=== PATIENT | female | born 1985 | race Caucasian/White ===

== ENCOUNTER 2018-05-15 01:07 | Outpatient (CLI) | payer MEDICARE, SELFPAY ==
[2018-05-15] MEDS: Gadoterate meglumine 20 ML VIAL 12 ML IVP (10:39)
--- NOTE | 2018-05-15 10:52 | DI.MRI_ITS ---
SYMPTOM/DIAGNOSIS: F/U MENINGIOMA, D32.9 BRAIN MRI: Pre and post contrast MRI of the brain was performed. Comparison examination is 11/25/17. There are again seen numerous extra-axial homogeneously enhancing masses intracranially, most suggestive of a combination of meningiomas and schwannoma/neurofibromas. There is again seen a lobulated mass involving the right skull base extending into the right retro-orbital soft tissues, the cavernous sinus, the right sphenoid sinus and the right cerebellar pontine angle. There is extension into the right middle cranial fossa. Using similar measuring techniques, the mass measures 7.6 cm. AP by 5.0 cm. transverse. This compares with 7.4 cm. AP by 5.0 cm. transverse. The cerebellar pontine component currently measures 2.9 cm. by 1.8 cm. This compares with 2.8 cm. by 1.8 cm. on the prior examination. The intra-orbital component of the mass measures 2.8 cm. by 1.8 cm. Using similar techniques, compares with 2.8 cm. by 1.2 cm. There is persistent mass effect on the optic nerve displacing the nerve medially. There is again seen encapsulation of the distal right internal carotid artery and the right middle cerebral artery. The mass involves the sella and suprasellar region. Overall there might be slight increase in size of the lesion compared to the prior examination. There is extension inferiorly with possible involvement of the right pterygoid muscle. The extra-axial mass centered on the anterior falx is again noted and shows slight increase in size measuring 3.0 cm. AP by 2.6 cm. transverse compared with 3.0 cm. by 2.3 cm. on the prior examination using similar techniques. There is mass effect on the surrounding frontal lobes. There is a lobulated enhancing soft tissue extra-axial mass again seen associated with the posterior falx. The mass now measures 5.3 cm. transverse by 2.7 cm. AP. Compared to the prior examination and using similar techniques, previously the mass measured 5.1 cm. by 2.4 cm. There is again seen diffuse meningeal enhancement with several enhancing nodules present. The nodule measured along the left temporal lobe is unchanged in size measuring .9 cm. The 1.4 cm. hyperintense lesion seen on the T 1 weighted images is unchanged in size. The enhancing masses in the internal auditory canals are stable in size compared to the prior examination. No new enhancing lesions are appreciated. The diffusion weighted images show no evidence of an acute infarct. There are again seen areas of T 2 hyperintensity in the white matter on the FLAIR and T 2 weighted images which appear stable. The ventricles are intact. There is unchanged mild leftward deviation of the midline. IMPRESSION: Multiple enhancing extra-axial masses which appear stable to slightly increased in size as described above.
== END 2018-05-15 01:27 ==
PROVIDERS: PCP Nurse Practitioner; Visit Provider Psychiatry & Neurology Neurocritical Care
DX: D32.9 Benign neoplasm of meninges, unspecified (principal)
CPT/HCPCS: 70553

== ENCOUNTER 2018-08-03 12:27 | Inpatient (IN) | payer MEDICARE, MEDICAID, SELFPAY ==
--- NOTE | 2018-08-03 10:34 | CM.SWINGPC ---
Swingbed Plan of Care Plan of care: SWING BED PROGRAM ACTIVITIES/DISCHARGE PLAN OF CARE ACTIVITIES PLAN Date: 08/03/18 Identified Need: Ongoing strengthening and continued supportive recovery. Intervention/Plan: [id number] with RN/PT/OT to continue to assess and support progress. Initials: [facility] DISCHARGE PLAN Date: 08/03/18 Identified Need: Return to community after prolonged hospitalization Intervention/Plan: Coordination of service supports, patient education, supported transition of care. Initials: JAMEL
--- NOTE | 2018-08-03 10:34 | CM.SBPSYCH ---
- If Service Date Differs Date of service: 08/03/18 Time of Service: 10:49 SB Psychosocial/Act.Assessment - Hospital Admission Admission Date: 08/03/18 [place] From[place] [facility] [place] Diagnosis:: SWB1 PT/OT for continued recovery s/p craniotomy at [facility] 07/20/18 - Swing Bed Admission Swing Bed Admit Date:: 08/03/18 Swing Bed Level of Care: Level 1/SNF - Social Supports PREVIOUS FUNCTIONAL STATUS/SOCIAL/FAMILY SUPPORTS:: Katherine resides at [facility] in [place], [place]. Her primary support is her mother, Margie Barnett. Katherine is and has a complex medical history requiring multiple surgical interventions. At baseline she is somewhat independent with support services and handicap apartment. - Prior to Admission Living Arrangements/Environment Prior to Admission:: [facility], senior housing handicap apartments, [facility] support, meal site - Education Highest Grade Completed:: Associates; [employer] Where did you attend School:: [employer]. 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 Behavior:: Pleasant, quiet, calm, soft spoken, friendly. - Medical History PAST MEDICAL HISTORY/PAST SURGICAL HISTORY:: Ms. 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 Her other history includes GERD, Hypothyroidism, Asthma, as well as noted Seizure Disorder (in setting of intracranial masses). 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 Her post-op course was complicated by a left Facial Droop, dysarthria, and LUE weakness, along with an inability to swallow. General Health:: Fair Past Psychiatric Treatment:: N/A - Admission Data Reason for Swing Bed Admission:: PT/OT for continued recovery s/p craniotomy at [facility] 07/20/18 Discharge Plan:: Home with resumption of services, possible new VNA orders dependent on ongoing evaluation and progress. Anticipate short term stay 7-13 days. Assessment: Appropriate for S/T rehab [facility] admission. Improvement Spec: Danae Lazcano Date Assessment was completed:: 08/03/18
--- NOTE | 2018-08-03 12:03 | W.PM.HP.N ---
Date of service: 08/03/18 Time of Service: 12:10 Assessment and Plan (1) Meningioma, recurrent of brain: Current visit: No Status: Chronic History of recurrent Meningioma of the brain, s/p prior resection in 2015. 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 Ms. Baugh developed new onset left facial droop, dysarthria, LUE weakness, and inability to swallow post-op, all reportedly improved and resolved with Decadron. Plan will be for completion of a steroid course with 2 additional days of Decadron. Also on Seizure prophylaxis with Keppra - per discussion with [facility], the patient is to remain on this at minimum until her follow-up with them. Patient also has note of prior seizure disorder in setting of prior intracranial mass, and reports being on Antiepileptics in the past as well. Being admitted to Swing Bed 1 for skilled rehab, with PT/OT consults, with expectations for discharge home with services over the course of the next week. (2) History of sarcoma: Current visit: No Status: Chronic History of childhood CSpine Sarcoma (C6-7) resulting in Quadriparesis. Patient is s/p surgical resection in 2003, Chemo/XRT, with residual Right hand weakness. Continue PT/OT as above. (3) Quadriparesis (muscle weakness): Current visit: No Status: Chronic (4) Seizure disorder: Current visit: No Status: Chronic On Keppra as above. (5) Hypothyroidism: Current visit: No Status: Chronic Continue replacement therapy. Consider repeat TSH soon. (6) GERD (gastroesophageal reflux disease): Current visit: No Status: Chronic Curently on famotidine. (7) DVT prophylaxis: Current visit: No Status: Acute SCD's, TEDs. History of Present Illness Chief Complaint: s/p Craniotomy Narrative: 33 year old woman with a prior history of recurrent Meningiomas of the brain, being admitted directly to Swing Bed as transfer [place] [facility] for the purposes of continued Rehab and Residential Needs. Ms. 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 Her other history includes GERD, Hypothyroidism, Asthma, as well as noted Seizure Disorder (in setting of intracranial masses). 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 Her post-op course was complicated by a left Facial Droop, dysarthria, and LUE weakness, along with an inability to swallow. These symptoms reportedly resolved over the course of the next week with patient receiving steroid therapy in the form of Decadron. She is noted to have a chronic and unchanged right eye Ptosis and RUE weakness. She is a resident of [facility] in [place], and is being transferred directly to Swing Bed at [facility] for continuation of PT and OT services. Current thinking is that she may return home with Home Health Services following this short rehab stay. Review of Systems Review of Systems All systems reviewed & are unremarkable except as noted in HPI and below PFSH Medical History Meningioma, recurrent of brain (Chronic) Neurofibromatosis II (Chronic) History of sarcoma (Chronic) Asthma (Chronic) Quadriparesis (muscle weakness) (Chronic) Seizure disorder (Chronic) Hypothyroidism (Chronic) GERD (gastroesophageal reflux disease) (Chronic) Surgical History S/P craniotomy (Chronic) Meds Home Medications Medication Instructions Recorded Confirmed Type acetaminophen 650 mg PO Q4H PRN PRN 08/03/18 08/03/18 History dexamethasone 1 mg PO DAILY 08/03/18 08/03/18 History famotidine 20 mg PO DAILY 08/03/18 08/03/18 History levetiracetam 500 mg PO BID 08/03/18 08/03/18 History levothyroxine 88 mcg PO DAILY 08/03/18 08/03/18 History melatonin 6 mg PO HS 08/03/18 08/03/18 History bmfqveuycuas-emj-acsy-FA-vit K 2 tab PO DAILY 08/03/18 08/03/18 History [Multi-Day Plus Minerals] sennosides-docusate sodium [Senna 2 tab PO BID 08/03/18 08/03/18 History Laxative-Stool Softener] sertraline 50 mg PO DAILY 08/03/18 08/03/18 History Allergies Allergy/AdvReac Type Severity Reaction Status Date / Time tetanus toxoid, adsorbed Allergy Severe Swelling/Ed Unverified 08/03/18 13:50 [place] morphine Allergy Mild Skin Rash Unverified 08/03/18 13:50 vecuronium Allergy Mild Skin Rash Unverified 08/03/18 13:50 acetaminophen [From Percocet] AdvReac Mild Other (See Unverified 08/03/18 13:50 Comment) adhesive tape AdvReac Mild Unverified 08/03/18 13:50 oxycodone [From Percocet] AdvReac Mild Other (See Unverified 08/03/18 13:50 Comment) Exam Narrative Exam Narrative: General: Patient appears comfortable, AAOX3, NAD HEENT: Right eyelid closed. Skin: Surgical site at craniotomy on right appears to be healing, without overlying erythema or cellulitic changes Neck: Supple CV: Regular, nontachycardic, S1S2, No rubs, murmurs, or gallops. Pulmonary: Clear to auscultation bilaterally, no crackles, wheezing, or rhonchi Abdomen: + Bowel Sounds, soft, nontender, nondistended Vascular: No lower extremity edema Neurologic: Appearance of right eye ptosis. Noted RUE weakness. Psych: Normal mood and affect. Results Labs : 08/03/18 12:29 08/03/18 12:29
--- NOTE | 2018-08-03 12:18 | HPE_ITS ---
Date of service: 08/03/18 Time of Service: 12:10 Assessment and Plan (1) Meningioma, recurrent of brain: Current visit: No Status: Chronic History of recurrent Meningioma of the brain, s/p prior resection in 2015. 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 Ms. Baugh developed new onset left facial droop, dysarthria, LUE weakness, and inability to swallow post-op, all reportedly improved and resolved with Decadron. Plan will be for completion of a steroid course with 2 additional days of Decadron. Also on Seizure prophylaxis with Keppra - per discussion with [facility], the patient is to remain on this at minimum until her follow-up with them. Patient also has note of prior seizure disorder in setting of prior intracranial mass, and reports being on Antiepileptics in the past as well. Being admitted to Swing Bed 1 for skilled rehab, with PT/OT consults, with expectations for discharge home with services over the course of the next week. (2) History of sarcoma: Current visit: No Status: Chronic History of childhood CSpine Sarcoma (C6-7) resulting in Quadriparesis. Patient is s/p surgical resection in 2003, Chemo/XRT, with residual Right hand weakness. Continue PT/OT as above. (3) Quadriparesis (muscle weakness): Current visit: No Status: Chronic (4) Seizure disorder: Current visit: No Status: Chronic On Keppra as above. (5) Hypothyroidism: Current visit: No Status: Chronic Continue replacement therapy. Consider repeat TSH soon. (6) GERD (gastroesophageal reflux disease): Current visit: No Status: Chronic Curently on famotidine. (7) DVT prophylaxis: Current visit: No Status: Acute SCD's, TEDs. History of Present Illness Chief Complaint: s/p Craniotomy Narrative: 33 year old woman with a prior history of recurrent Meningiomas of the brain, being admitted directly to Swing Bed as [place] [facility] [place] the purposes of continued Rehab and Skilled Nu rsing Needs. Ms. 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 Her other history incl udes GERD, Hypothyroidism, Asthma, as well as noted Seizure Disorder (in setting of intracranial masses). 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 Her post-op course was complicated by a left Facial Droop, dysarthria, and LUE weakness, along with an inability to swallow. These symptoms reportedly resolved over the course of the next week with patient receiving steroid therapy in the form of Decadron. She is noted to have a chronic and unchanged right eye Ptosis and RUE weakness. She is a resident of [facility] in [place], and is being transferred directly to [facility] Bed at [facility] for continuation of PT and OT services. Current thinking is that she may return home with Home Health Services following this short rehab stay. Review of Systems Review of Systems All systems reviewed & are unremarkable except as noted in HPI and below PFSH Medical History Meningioma, recurrent of brain (Chronic) Neurofibromatosis II (Chronic) History of sarcoma (Chronic) Asthma (Chronic) Quadriparesis (muscle weakness) (Chronic) Seizure disorder (Chronic) Hypothyroidism (Chronic) GERD (gastroesophageal reflux disease) (Chronic) Surgical History S/P craniotomy (Chronic) Meds Home Medications Medication Instructions Recorded Confirmed Type acetaminophen 650 mg PO Q4H PRN PRN 08/03/18 08/03/18 History dexamethasone 1 mg PO DAILY 08/03/18 08/03/18 History famotidine 20 mg PO DAILY 08/03/18 08/03/18 History levetiracetam 500 mg PO BID 08/03/18 08/03/18 History levothyroxine 88 mcg PO DAILY 08/03/18 08/03/18 History melatonin 6 mg PO HS 08/03/18 08/03/18 History qwmvxesnzemj-pde-cegi-FA-vit K 2 tab PO DAILY 08/03/18 08/03/18 History [Multi-Day Plus Minerals] sennosides-docusate sodium [Senna 2 tab PO BID 08/03/18 08/03/18 History Laxative-Stool Softener] sertraline 50 mg PO DAILY 08/03/18 08/03/18 History Allergies Allergy/AdvReac Type Severity Reaction Status Date / Time tetanus toxoid, adsorbed Allergy Severe Swelling/Ed Unverified 08/03/18 13:50 [place] morphine Allergy Mild Skin Rash Unverified 08/03/18 13:50 vecuronium Allergy Mild Skin Rash Unverified 08/03/18 13:50 acetaminophen [From Percocet] AdvReac Mild Other (See Unverified 08/03/18 13:50 Comment) adhesive tape AdvReac Mild Unverified 08/03/18 13:50 oxycodone [From Percocet] AdvReac Mild Other (See Unverified 08/03/18 13:50 Comment) Exam Narrative Exam Narrative: General: Patient appears comfortable, AAOX3, NAD HEENT: Right eyelid closed. Skin: Surgical site at craniotomy on right appears to be healing, without overlying erythema or cellulitic changes Neck: Supple CV: Regular, nontachycardic, S1S2, No rubs, murmurs, or gallops. Pulmonary: Clear to auscultation bilaterally, no crackles, wheezing, or rhonchi Abdomen: + Bowel Sounds, soft, nontender, nondistended Vascular: No lower extremity edema Neurologic: Appearance of right eye ptosis. Noted RUE weakness. Psych: Normal mood and affect. Results Labs : 08/03/18 12:29 08/03/18 12:29
[2018-08-03 12:25] VITALS: BP 106/77; PULSE 118; RESP 16; TEMP 36.8; O2SAT 100
--- NOTE | 2018-08-03 13:31 | CMSA_ITS ---
- If Service Date Differs Date of service: 08/03/18 Time of Service: 10:49 SB Psychosocial/Act.Assessment - Hospital Admission Admission Date: 08/03/18 Admission From:: [facility] Inpatient Diagnosis:: SWB1 PT/OT for continued recovery s/p craniotomy at [facility] 07/20/18 - Swing Bed Admission Swing Bed Admit Date:: 08/03/18 Swing Bed Level of Care: Level 1/SNF - Social Supports PREVIOUS FUNCTIONAL STATUS/SOCIAL/FAMILY SUPPORTS:: Katherine resides at [facility] in [place], [place]. Her primary support is her mother, Margie Barnett. Katherine is and has a complex medical history requiring multiple surgical interventions. At baseline she is somewhat independent with support services and handicap apartment. - Prior to Admission Living Arrangements/Environment Prior to Admission:: [facility], senior housing handicap apartments, [facility] support, meal site - Education Highest Grade Completed:: Associates; [employer] Where did you attend School:: [employer]. 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 Behavior:: Pleasant, quiet, calm, soft spoken, friendly. - Medical History PAST MEDICAL HISTORY/PAST SURGICAL HISTORY:: Ms. 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 Her other history includes GERD, Hypothyroidism, Asthma, as well as noted Seizure Disorder (in setting of intracranial masses). 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 Her post-op course was complicated by a left Facial Droop, dysarthria, and LUE weakness, along with an inability to swallow. General Health:: Fair Past Psychiatric Treatment:: N/A - Admission Data Reason for Swing Bed Admission:: PT/OT for continued recovery s/p craniotomy at [facility] 07/20/18 Discharge Plan:: Home with resumption of services, possible new VNA orders dependent on ongoing evaluation and progress. Anticipate short term stay 7-13 days. Assessment: Appropriate for S/T rehab [facility] admission. Architect Intern: Danae Lazcano Date Assessment was completed:: 08/03/18
[2018-08-03 15:47] VITALS: BP 101/71; PULSE 94; RESP 18; TEMP 36.4; O2SAT 99
--- NOTE | 2018-08-03 16:14 | PT.INIE ---
Date of service: 08/03/18 Time of Service: 14:11 PT Notes Inpatient Physical Therapy Evaluation Date: 08/03/2018 Referring Doctor: Josesito Lao MD PT Orders: PT CONSULT: Direct to swing admission. S/P craniotomy for recurrent meningioma. Assess for continued OT needs. Thank you. Precautions: Fall. Standard. Patient Profile/Admitting Diagnosis: Orders were received for this 33-year-old female who is S/P elective right craniectomy for resection/debulking of a large right cavernous/frontotemporal mass on 07/20/2018 at [facility]. Patient's postoperative course was complicated with new onset facial droop, dysarthria, and intermittent L UE weakness, and inability to swallow from brainstem swelling. These symptoms were successfully managed and were fully resolved with a steroid Decadron within intake for 7 days while at [facility]. 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 Continued skilled physical therapy services are required for progression of B LE strength, functional mobility level, and balance skills in anticipation of going home alone after one week. PMHX: Medical History Meningioma, recurrent of brain (Chronic) Neurofibromatosis II (Chronic) History of sarcoma (Chronic) Asthma (Chronic) Quadriparesis (muscle weakness) (Chronic) Seizure disorder (Chronic) Hypothyroidism (Chronic) GERD (gastroesophageal reflux disease) (Chronic) Surgical History S/P craniotomy (Chronic) Social History/Home Situation: Katherine lives alone on the fourth floor of an apartment building in [place], [place] with both ramp and 5 steps to enter. Prior to admission, she spends weekends at her mother's house where there are 4 steps to enter. Patient states she has a shower chair and owns a 4WW which she says she has used since 2016. Katherine reports that she gets meal on wheels for lunch and is able to make herself breakfast and supper. She used to work at the [employer] but had to stop after the last surgery she had in 2016. Current Functional Limitations: Requires assistance and assistive device with ambulation task performance with decreased safety of MRADL performance due to balance impairment Equipment Owned/DME: 4WW, shower chair Subjective: Patient inquires whether she can go to the bathroom on her own the same as what she claims she was doing at the previous inpatient rehab. She is agreeable to a PT consult and treatment. She denies any pain, headache, dizziness and nausea. She did state that she feels tired after the initial strengthening exercises this afternoon using ankle weights. She states that she did not sleep well last night which may be causing her fatigue as well. Objective: General Observation: Patient seen resting in bed with head of bed elevated degrees. Craniotomy incision well approximated without any drainage observed. R hand with residual claw deformity from cervical sarcoma. Mental Status: Alert and oriented x3 Pain: 0/10 ROM: Right Upper Extremity: Shoulder Flexion less than 50% of AROM. Shoulder abduction less than 50% of AROM. Elbow flexion WFL. Elbow extension WFL. Wrist flexion about 0-10. Wrist extension about 0-5. Patient able to partially extend fingers to neutral and has weak item processing clerk. Left Upper Extremity: Shoulder Flexion WFL. Shoulder abduction WFL. Elbow flexion WFL. Wrist flexion WFL. Functional opening and closing of hand WFL. Right Lower Extremity: Hip flexion WFL. Hip abduction WFL. Knee flexion WFL. Ankle dorsiflexion WFL. Ankle plantarflexion WFL. Left Lower Extremity: Hip flexion WFL. Hip abduction WFL. Knee flexion WFL. Ankle dorsiflexion WFL. Ankle plantarflexion WFL. Strength: Right Upper Extremity: Shoulder flexors 3-/5. Shoulder abductors 3-/5. Elbow flexors 3/5. Elbow extensors 3+/5. Wrist flexors 3-/5. Wrist extensors 3-/5. Ginseng Farmer weak. Left Upper Extremity: Shoulder flexors 4/5. Shoulder abductors 4/5. Elbow flexors 4/5. Elbow extensors 4/5. Ginseng Farmer strong. Right Lower Extremity: Hip flexors 4/5. Hip abductors 4/5. Knee flexors 4/5. Knee extensors 4/5. Ankle dorsiflexors 4/5. Ankle plantarflexors 4/5. Left Lower Extremity:Hip flexors 4/5. Hip abductors 4/5. Knee flexors 4/5. Knee extensors 4/5. Ankle dorsiflexors 4/5. Ankle plantarflexors 4/5. Bed Mobility/Transfers: Rolling I Supine to sit I Sit to supine I Sit to stand Supervision Stand to sit Supervision Bed to chair Supervision Chair to bed Supervision Gait: Patient tolerated level surface ambulation to therapy gym about 100 feet using 4WW with SBA, minimal verbal cues for directions. Step height and length reduced. Gait velocity reduced due to decreased visual acuity. Reported fatigue after activity. Reported no dizziness, no headache nor chest pain. Balance: Static Sitting: Good Dynamic Sitting: Good Static Standing: Fair Dynamic Standing: Fair his usual Special Tests: Mobility Limitations Standardized Measure [facility] AM-PAC 6 clicks Basic Mobility Inpatient Short Form: Raw Score: 19 CMS Score: 45% deficit 4-Stage Balance Test. Patient able to assume positions 1 and 2 safely for 10 seconds but not able to with tandem stance and one-legged stance. Informed Consent/Education: Patient instructed in purpose of PT consult and plan of care. She was instructed that with the transition to this new inpatient rehab facility along with adjustment needed to a new room/setting, we will continue with supervision assist with plan to progress to independent level once appropriate in 2-3 days. She tolerated 10 reps of seated exercises using 2 lb ankle weights on. Ample time for rest and deep breathing exercises given in between each rep as patient is prone to post-op seizures. She reported fatigue after completing seated knee and leg raises. Assessment: Patient is a 33 Year old female referred to physical therapy services with previous recurrent meningioma resection now with diagnosis S/P meningioma resection of a large frontotemporal mass in the cavernous sinus on 07/20/2018. Patient presents with clinical signs and symptoms consistent with current/admitting diagnoses that have resulted to mobility limitations, gait instability, generalized weakness, and impairment of motor control as demonstrated by the following impairment level findings: 1. Decreased strength to B LE major muscle groups and R UE 2. Impaired standing balance 3. Impaired activity tolerance 4. Residual deficit in R shoulder, elbow, and wrist/hand from C6/C7 sarcoma in 2016 5. Decreased visual acuity due to CN III and IV affectation Impairments are contributing to the following functional limitations: 1. Increased completion time for bed mobility skills 2. Increased dependence with transfers 3. Inability to safely ambulate without assistive device and physical assistance 4. Increase completion time for mobility ADL performance 5. Increased fall risk 6. Inability to negotiate steps alone safely Patient is assessed as a Moderate 08825 complexity based on the following: History: Right-handed female patient who lives alone with Neurofibromatosis Type II affeccted with residual R UE hemiparesis from C6/C7 cervical spine sarcoma in 2016 S/P previous resections for recurrent meningioma with the last one done early middle of last month Examination: Underlying impairments and functional limitations as noted above normal Presentation: Stable Decision Makin Moderate complexity Goals: Goals X1 week 1. Sit-Stand independent 2. Stand-Sit independent 3. Bed-Chair independent 4. Chair-Bed independent 5. Independent gait on level surface with use of least restrictive device for at least 300 feet without report of pain nor dyspnea 6. Independent gait on paved surfaces outdoors for at least 200 feet without report of pain nor dyspnea 6. Independent stair negotiation while holding onto bilateral rails for at least 5 steps without report of pain nor dyspnea 7. Independent with home exercise program 8. Good static and dynamic standing balance/tolerance Plan of Care/Treatment Plan: 1-2x/day, 7 days/week x 1 week. Plan of care has been reviewed with the POLISHING PAD MOUNTER providing the service under Physical Therapy direction. Initiate Physical Therapy intervention for strengthening, bed mobility, transfers, gait, stairs, balance training, use of assistive device. DISCHARGE RECOMMENDATIONS: Will benefit from home health PT/OT services in order to progress to independent mobility performance without use of assistive device, assess home safety/adaptive equipment/DME needs, establish/implement a functional maintenance program for strengthening, facilitate reintegration to community. TREATMENT CODE/TIME: 08924 for 30 minutes, 28599 for 14 minutes. More, 61744 for 10 minutes beginning at 14:11 PM. Thank you very much for this referral. Myrna Kendrick, PT, DPT, CLT [facility]
--- NOTE | 2018-08-03 16:27 | IN_ITS ---
Date of service: 08/03/18 Time of Service: 14:11 PT Notes Inpatient Physical Therapy Evaluation Date: 08/03/2018 Referring Doctor: Josesito Lao MD PT Orders: PT CONSULT: Direct to swing admission. S/P craniotomy for recurrent meningioma. Assess for continued OT needs. Thank you. Precautions: Fall. Standard. Patient Profile/Admitting Diagnosis: Orders were received for this 33-year-old female who is S/P elective right craniectomy for resection/debulking of a large right cavernous/frontotemporal mass on 07/20/2018 at [facility]. Patient's postoperative course was complicated with new onset facial droop, dysarthria, and intermittent L UE weakness, and inability to swallow from brainstem swelling. These symptoms were successfully managed and were fully resolved with a steroid Decadron within intake for 7 days while at [facility]. 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 Continued skilled physical therapy services are required for progression of B LE strength, functional mobility level, and balance skills in anticipation of going home alone after one week. PMHX: Medical History Meningioma, recurrent of brain (Chronic) Neurofibromatosis II (Chronic) History of sarcoma (Chronic) Asthma (Chronic) Quadriparesis (muscle weakness) (Chronic) Seizure disorder (Chronic) Hypothyroidism (Chronic) GERD (gastroesophageal reflux disease) (Chronic) Surgical History S/P craniotomy (Chronic) Social History/Home Situation: Katherine lives alone on the fourth floor of an apartment building in [place], [place] with both ramp and 5 steps to enter. Prior to admission, she spends weekends at her mother's house where there are 4 steps to enter. Patient states she has a shower chair and owns a 4WW which she says she has used since 2016. Katherine reports that she gets meal on wheels for lunch and is able to make herself breakfast and supper. She used to work at the [employer] but had to stop after the last surgery she had in 2016. Current Functional Limitations: Requires assistance and assistive device with ambulation task performance with decreased safety of MRADL performance due to balance impairment Equipment Owned/DME: 4WW, shower chair Subjective: Patient inquires whether she can go to the bathroom on her own the same as what she claims she was doing at the previous inpatient rehab. She is agreeable to a PT consult and treatment. She denies any pain, headache, dizziness and nausea. She did state that she feels tired after the initial strengthening exercises this afternoon using ankle weights. She states that she did not sleep well last night which may be causing her fatigue as well. Objective: General Observation: Patient seen resting in bed with head of bed elevated degrees. Craniotomy incision well approximated without any drainage observed. R hand with residual claw deformity from cervical sarcoma. Mental Status: Alert and oriented x3 Pain: 0/10 ROM: Right Upper Extremity: Shoulder Flexion less than 50% of AROM. Shoulder abduction less than 50% of AROM. Elbow flexion WFL. Elbow extension WFL. Wrist flexion about 0-10. Wrist extension about 0-5. Patient able to partially extend fingers to neutral and has weak de icer finisher. Left Upper Extremity: Shoulder Flexion WFL. Shoulder abduction WFL. Elbow flexion WFL. Wrist flexion WFL. Functional opening and closing of hand WFL. Right Lower Extremity: Hip flexion WFL. Hip abduction WFL. Knee flexion WFL. Ankle dorsiflexion WFL. Ankle plantarflexion WFL. Left Lower Extremity: Hip flexion WFL. Hip abduction WFL. Knee flexion WFL. Ankle dorsiflexion WFL. Ankle plantarflexion WFL. Strength: Right Upper Extremity: Shoulder flexors 3-/5. Shoulder abductors 3-/5. Elbow flexors 3/5. Elbow extensors 3+/5. Wrist flexors 3-/5. Wrist extensors 3-/5. Divinity Professor weak. Left Upper Extremity: Shoulder flexors 4/5. Shoulder abductors 4/5. Elbow flexors 4/5. Elbow extensors 4/5. Divinity Professor strong. Right Lower Extremity: Hip flexors 4/5. Hip abductors 4/5. Knee flexors 4/5. Knee extensors 4/5. Ankle dorsiflexors 4/5. Ankle plantarflexors 4/5. Left Lower Extremity:Hip flexors 4/5. Hip abductors 4/5. Knee flexors 4/5. Knee extensors 4/5. Ankle dorsiflexors 4/5. Ankle plantarflexors 4/5. Bed Mobility/Transfers: Rolling I Supine to sit I Sit to supine I Sit to stand Supervision Stand to sit Supervision Bed to chair Supervision Chair to bed Supervision Gait: Patient tolerated level surface ambulation to therapy gym about 100 feet using 4WW with SBA, minimal verbal cues for directions. Step height and length reduced. Gait velocity reduced due to decreased visual acuity. Reported fatigue after activity. Reported no dizziness, no headache nor chest pain. Balance: Static Sitting: Good Dynamic Sitting: Good Static Standing: Fair Dynamic Standing: Fair his usual Special Tests: Mobility Limitations Standardized Measure [facility] AM-PAC 6 clicks Basic Mobility Inpatient Short Form: Raw Score: 19 CMS Score: 45% deficit 4-Stage Balance Test. Patient able to assume positions 1 and 2 safely for 10 seconds but not able to with tandem stance and one-legged stance. Informed Consent/Education: Patient instructed in purpose of PT consult and plan of care. She was instructed that with the transition to this new inpatient rehab facility along with adjustment needed to a new room/setting, we will continue with supervision assist with plan to progress to independent level once appropriate in 2-3 days. She tolerated 10 reps of seated exercises using 2 lb ankle weights on. Ample time for rest and deep breathing exercises given in between each rep as patient is prone to post-op seizures. She reported fatigue after completing seated knee and leg raises. Assessment: Patient is a 33 Year old female referred to physical therapy services with previous recurrent meningioma resection now with diagnosis S/P meningioma resection of a large frontotemporal mass in the cavernous sinus on 07/20/2018. Patient presents with clinical signs and symptoms consistent with current/admitting diagnoses that have resulted to mobility limitations, gait instability, generalized weakness, and impairment of motor control as demonstrated by the following impairment level findings: 1. Decreased strength to B LE major muscle groups and R UE 2. Impaired standing balance 3. Impaired activity tolerance 4. Residual deficit in R shoulder, elbow, and wrist/hand from C6/C7 sarcoma in 2016 5. Decreased visual acuity due to CN III and IV affectation Impairments are contributing to the following functional limitations: 1. Increased completion time for bed mobility skills 2. Increased dependence with transfers 3. Inability to safely ambulate without assistive device and physical assistance 4. Increase completion time for mobility ADL performance 5. Increased fall risk 6. Inability to negotiate steps alone safely Patient is assessed as a Moderate 04702 complexity based on the following: History: Right-handed female patient who lives alone with Neurofibromatosis Type II affeccted with residual R UE hemiparesis from C6/C7 cervical spine sarcoma in 2016 S/P previous resections for recurrent meningioma with the last one done early middle of last month Examination: Underlying impairments and functional limitations as noted above normal Presentation: Stable Decision Makin Moderate complexity Goals: Goals X1 week 1. Sit-Stand independent 2. Stand-Sit independent 3. Bed-Chair independent 4. Chair-Bed independent 5. Independent gait on level surface with use of least restrictive device for at least 300 feet without report of pain nor dyspnea 6. Independent gait on paved surfaces outdoors for at least 200 feet without report of pain nor dyspnea 6. Independent stair negotiation while holding onto bilateral rails for at least 5 steps without report of pain nor dyspnea 7. Independent with home exercise program 8. Good static and dynamic standing balance/tolerance Plan of Care/Treatment Plan: 1-2x/day, 7 days/week x 1 week. Plan of care has been reviewed with the NETWORK PROGRAM MANAGER providing the service under Physical Therapy direction. Initiate Physical Therapy intervention for strengthening, bed mobility, transfers, gait, stairs, balance training, use of assistive device. DISCHARGE RECOMMENDATIONS: Will benefit from home health PT/OT services in order to progress to independent mobility performance without use of assistive device, assess home safety/adaptive equipment/DME needs, establish/implement a functional maintenance program for strengthening, facilitate reintegration to community. TREATMENT CODE/TIME: 19812 for 30 minutes, 17986 for 14 minutes. More, 98116 for 10 minutes beginning at 14:11 PM. Thank you very much for this referral. Myrna Kendrikc, PT, DPT, CLT [facility]
[2018-08-03 17:00] LABS: Abs Immature Grans 0.05 k/cumm (0.0-0.09); Absolute Eosinophil Count 0.05 k/cumm (0.0-0.7); Absolute Lymphocyte Count 2.13 k/cumm (1.2-3.4); Basophils % 0.2; Eosinophils % 0.4; HCT 35.1 % (36.0-46.0); HGB 10.9 g/dL (12.0-15.5); Immature Grans % 0.4; Lymphocytes % 16.2; Mean Corp. HGB Concentration 31.1 g/dL (32.0-36.0); Mean Corpuscular Hemoglobin 27.5 pg (27.0-33.0); Mean Corpuscular Volume 88.6 fL (80-95); Mean Platelet Volume 10.2 fL (8.0-11.0); Neutrophils % 78.8; Platelet Count 320 x1000/uL (130-400); RBC 3.96 m/cumm (4.00-5.20); RBC Distribution Width 14.5 % (11.7-14.6); White Blood Cell Count 13.13 k/cumm (4.4-10.8)
[2018-08-03 17:04] LABS: Absolute Basophil Count 0.03 k/cumm (0.0-0.2); Absolute Monocyte Count 0.53 k/cumm (0.11-0.7); Absolute Neutrophil Count 10.35 k/cumm (1.2-6.7)
[2018-08-03 17:25] LABS: ALT 88 U/L (12-78); AST 31 U/L (15-37); Albumin 3.3 g/dL (3.4-5.0); Alkaline Phosphatase 137 U/L (46-116); Anion Gap 7.4 mmol/L (3-11); BUN 18 mg/dL (7-18); Bilirubin, Total 0.3 mg/dL (0.2-1.0); CO2 29.6 mmol/L (21.0-32.0); CREATININE 0.76 mg/dL (0.55-1.02); Calcium 9.3 mg/dL (8.5-10.1); Chloride 103 mmol/L (98-107); Glucose 111 mg/dL (70-100); Magnesium 2.4 mg/dL (1.8-2.4); Potassium 3.9 mmol/L (3.5-5.1); Sodium 140 mmol/L (136-145); Total Protein 7.1 g/dL (6.4-8.2)
[2018-08-03 17:30] LABS: TSH 0.91 uIU/mL (0.358-3.74)
[2018-08-03 19:37] VITALS: BP 98/67; PULSE 110; RESP 18; TEMP 36.3; O2SAT 97
[2018-08-03] MEDS: levETIRAcetam 500 MG TAB PO (19:40)
[2018-08-03] MEDS: Melatonin 3 MG TAB 6 MG PO (21:12)
[2018-08-04 06:35] VITALS: BP 103/69; PULSE 98; RESP 20; TEMP 36.5; O2SAT 98
[2018-08-04] MEDS: Sertraline 50 MG TAB 25 MG PO (08:11)
[2018-08-04] MEDS: Multivitamin w/Minerals TAB 2 TAB PO (08:11)
[2018-08-04] MEDS: Dexamethasone 1 MG TAB PO (08:12)
[2018-08-04] MEDS: levETIRAcetam 500 MG TAB PO ×2 (08:12→19:20)
[2018-08-04] MEDS: Levothyroxine 88 MCG TAB PO (08:12)
[2018-08-04] MEDS: Famotidine 20 MG TAB PO ×2 (08:12→19:20)
[2018-08-04 09:30] VITALS: O2SAT 99
--- NOTE | 2018-08-04 10:42 | OT.INIE ---
Occupational Therapy Notes Inpatient SWING Occupational Therapy Evaluation Date: 08/04/18 Referring Doctor:Josesito Lao MD OT Orders: Direct to swing admission, s/p craniotomy for recurrent meningioma. Assess for continued OT needs. Thank you. 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 She was recently in [facility] for 2 weeks s/p craniotomy for recurrent meningioma. She is here at [facility] under swing bed rehabilitation status. Past Medical History: Medical History Meningioma, recurrent of brain (Chronic) Neurofibromatosis II (Chronic) History of sarcoma (Chronic) Asthma (Chronic) Quadriparesis (muscle weakness) (Chronic) Seizure disorder (Chronic) Hypothyroidism (Chronic) GERD (gastroesophageal reflux disease) (Chronic) Surgical History S/P craniotomy (Chronic) Social History/Home Situation: Pt lives alone in an apartment in [place] ([facility]). She reports that she prior to admission to [facility] she was (I) with bathing with walk in shower and shower bench, (I) dressing, (I) eating, (I) with cooking. She has (A) with driving which she rides with family or friends from the [facility]. She is using a 4WW for functional mobility. She has had a significant Pmhx since she was in high school. Pt has family support locally however she reports that most of her family resides in [place]. Equipment owned/DME: 4WW, shower bench, grab bars, walk in shower SUBJECTIVE: Pt was sitting in bed when OT arrived. She was agreeable to OT consult. OBJECTIVE: General Observation: sutures removed from head yesterday, pleasant and answered questions appropriately Mental Status: A&Ox3 Pain: no c/o pain ROM: RUE Shoulder flexion actively to 30* and passively WNL, elbow WNL, hand/digits unable to fully extend digits, decreased thenar eminence d/t muscle wasting, no pain with passive mobilization hand sits in claw like formation possibly d/t contractures in IP joints. L UE Shoulder flexion actively to WNL, elbow WNL, hand/digits WNL STRENGTH: RUE Shoulder flexion modified 2/5, elbow 3+/5, party host is weak d/t decreased ROM hand/digits LUE Shoulder flexion modified 4-/5, elbow 4/5, party host is strong Pt was (R) hand dominant prior to 2002 and now uses her (L) hand as her more dominant hand. FUNCTIONAL MOBILITY/ADLS: Transfers with 4WW Sit-Stand S, 4WW Stand-sit S,4WW Bed-shower performed with [employer] CONSULTANT please refer to her note shower-bed performed with [employer] CONSULTANT please refer to her note BATHING In shower with max (A) set up Bathing UE (I) with min vc for sequencing washing Bathing LE (I) DRESSING In seated position with max (A) set up Dressing UE (I) with fair technique Dressing LE (I) with good technique GROOMING NT TOILETING On toilet (I) toileting hygiene EATING (I) BALANCE: Static sitting Normal Dynamic Sitting Normal Static Standing Good Dynamic Standing Good SPECIAL TESTS: Daily Activity Limitations Standardized Measure [facility] AM -PAC ?6 clicks? Daily Activity Inpatient Short Form: Raw score: 22 Standardized score: 47.10 CMS score: 25.80% INFORMED CONSENT/EDUCATION: Pt instructed in purpose of OT Consult and plan of care. ASSESSMENT: Patient is a 33-year-old female referred to occupational therapy services with diagnosis of s/p craniotomy for recurrent meningioma. Patient presents with clinical signs and symptoms consistent with dx, as demonstrated by the following impairment level findings/functional limitations: Decreased (R) UE ROM/strength, decreased gross and fine motor control of (B) UE, decreased functional grasp (R) UE, functional mobility 4WW. AMPAC score 22, CMS 25.80% Patient is assessed as a Moderate 79430 complexity based on the following: History: See Above Examination: See Above Presentation: Evolving Decision Making: Moderate complexity GOALS Goals x1 week 1. Transfers 4WW, (I) 2. Dressing (I) in sitting position 3. Bathing (I) in shower with good sequencing techniques 4. Toileting (I) on toilet 5. Eating (I) 6. Grooming standing at sink with 4WW (I) PLAN OF CARE/TREATMENT PLAN: 1x/day, 5 days/ week x 1week Initiate Occupational Therapy Services for bathing, dressing, grooming, toileting, eating, transfer training. DISCHARGE RECOMMENDATIONS OT recommends that pt return home with services when medically cleared MD TREATMENT TIME/MINUTES/CODES 63406, [id number], 55 minutes (08:20) Mary Ellen Garland OTR/L [facility]
--- NOTE | 2018-08-04 11:01 | OTIE_ITS ---
Occupational Therapy Notes Inpatient SWING Occupational Therapy Evaluation Date: 08/04/18 Referring Doctor:Josesito Lao MD OT Orders: Direct to swing admission, s/p craniotomy for recurrent meningioma. Assess for continued OT needs. Thank you. 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 She was recently in [facility] for 2 weeks s/p craniotomy for recurrent meningioma. She is here at [facility] under swing bed rehabilitation status. 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 She reports that she prior to admission to [facility] she was (I) with bathing with walk in shower and shower bench, (I) dressing, (I) eating, (I) with cooking. She has (A) with driving which she rides with family or friends from the [facility]. She is using a 4WW for functional mobility. She has had a significant Pmhx since she was in high school. Pt has family support locally however she reports that most of her family resides in [place]. Equipment owned/DME: 4WW, shower bench, grab bars, walk in shower SUBJECTIVE: Pt was sitting in bed when OT arrived. She was agreeable to OT consult. OBJECTIVE: General Observation: sutures removed from head yesterday, pleasant and answered questions appropriately Mental Status: A&Ox3 Pain: no c/o pain ROM: RUE Shoulder flexion actively to 30* and passively WNL, elbow WNL, hand/digits unable to fully extend digits, decreased thenar eminence d/t muscle wasting, no pain with passive mobilization hand sits in claw like formation possibly d/t contractures in IP joints. L UE Shoulder flexion actively to WNL, elbow WNL, hand/digits WNL STRENGTH: RUE Shoulder flexion modified 2/5, elbow 3+/5, municipal bond trader is weak d/t decreased ROM hand/digits LUE Shoulder flexion modified 4-/5, elbow 4/5, municipal bond trader is strong Pt was (R) hand dominant prior to 2002 and now uses her (L) hand as her more dominant hand. FUNCTIONAL MOBILITY/ADLS: Transfers with 4WW Sit-Stand S, 4WW Stand-sit S,4WW Bed-shower performed with [employer] WORKER please refer to her note shower-bed performed with ANTISQUEAK WORKER please refer to her note BATHING In shower with max (A) set up Bathing UE (I) with min vc for sequencing washing Bathing LE (I) DRESSING In seated position with max (A) set up Dressing UE (I) with fair technique Dressing LE (I) with good technique GROOMING NT TOILETING On toilet (I) toileting hygiene EATING (I) BALANCE: Static sitting Normal Dynamic Sitting Normal Static Standing Good Dynamic Standing Good SPECIAL TESTS: Daily Activity Limitations Standardized Measure [facility] AM -PAC ?6 clicks? Daily Activity Inpatient Short Form: Raw score: 22 Standardized score: 47.10 CMS score: 25.80% INFORMED CONSENT/EDUCATION: Pt instructed in purpose of OT Consult and plan of care. ASSESSMENT: Patient is a 33-year-old female referred to occupational therapy services with diagnosis of s/p craniotomy for recurrent meningioma. Patient presents with clinical signs and symptoms consistent with dx, as demonstrated by the following impairment level findings/functional limitations: Decreased (R) UE ROM/strength, decreased gross and fine motor control of (B) UE, decreased functional grasp (R) UE, functional mobility 4WW. AMPAC score 22, CMS 25.80% Patient is assessed as a Moderate 68895 complexity based on the following: History: See Above Examination: See Above Presentation: Evolving Decision Making: Moderate complexity GOALS Goals x1 week 1. Transfers 4WW, (I) 2. Dressing (I) in sitting position 3. Bathing (I) in shower with good sequencing techniques 4. Toileting (I) on toilet 5. Eating (I) 6. Grooming standing at sink with 4WW (I) PLAN OF CARE/TREATMENT PLAN: 1x/day, 5 days/ week x 1week Initiate Occupational Therapy Services for bathing, dressing, grooming, toileting, eating, transfer training. DISCHARGE RECOMMENDATIONS OT recommends that pt return home with services when medically cleared MD TREATMENT TIME/MINUTES/CODES 02818, [id number], 55 minutes (08:20) Mary Ellen Garland OTR/L [facility]
--- NOTE | 2018-08-04 11:41 | PHARADMIT ---
Addendum entered by Parker Allen III 08/07/18 16:53: Swing bed working with OT & PT. VS-OK No labs CM working towards discharge Addendum entered by Ne Garay 08/06/18 14:00: nothing new per morning report, still working with PT/OT HR-100 other VS okay no labs no med changes Addendum entered by Ne Garay 08/05/18 10:54: doing well per morning report, still working with PT/OT VS okay no labs levothyroxine dose changed from 0830 to 0600, dexamethasone tx finished Original Note: Admission Pharmacy [facility] meningioma Code Status Full Code Current Weight 53.9 kg Renally Cleared and Narrow Therapeutic Index Meds Crcl ~85.1 mL/min current meds okay QTc Value / Action Taken n/a BP Control, Fever BP 103/69 afebrile Electrolytes reviewed within normal limits DVT Prophylaxis none Opiate Usage / Scheduled Bowel Regimen Ordered no/prn Plt/SCr for Heparin / Enoxaparin plt 320 SCr 0.76 INR for Warfarin n/a H/H stable, WBC/Bands h/h 10.9/35.1 wbc 13.13 Antibiotic appropriateness n/a Cultures and Sensitivities none Surgical ABX d/c within 24 hr n/a DM control / Insulin Dosing BG 111 none Heart Failure (Check EF%) (GLO's, B-Block, Diuretics) none IV to PO Switch n/a Home Meds Reviewed separate admin of levothyroxine from multivitamin Home Meds Not Ordered senna Comments swingbed for rehab, working with PT and OT
--- NOTE | 2018-08-04 14:45 | PT.INTREAT ---
Date of service: 08/04/18 Time of Service: 14:45 PT Notes Inpatient Physical Therapy Treatment Note [facility] Date: 08/04/18 PRECAUTIONS: Seizure SUBJECTIVE: Katherine is agreeable to participating in PT. OBJECTIVE: Patient is able to independently don/doff socks. PAIN: No c/o pain BED MOBILITY/TRANSFERS Supine-sit: I Sit-supine: I Sit-stand: I Stand-sit: I GAIT Assistive Device: 4WW Weight bearing: Full Assist: S in a.m.; I in p.m. Distance: 100' + 200' in a.m.; 10' x2 in p.m. THEREX: Patient completed a resisted lower extremity strengthening program, as per flow sheet. She was able to tolerate a progression to standing exercise, as well as a progression in repetitions. TOILETING: Patient toileted independently. ASSESSMENT: Patient tolerated sessions without complaint. She was able to tolerate a progression in gait distance with 4WW support and supervision in a.m., and a progression in ther ex in p.m. Patient would benefit from continued global strengthening for improved activity tolerance. PLAN: Continue with PT's POC TREATMENT CODE/TIME: Session 1: 20 minutes; 09594 Session 2: 30 minutes; 58414 x2
--- NOTE | 2018-08-04 14:50 | PTTR_ITS ---
Date of service: 08/04/18 Time of Service: 14:45 PT Notes Inpatient Physical Therapy Treatment Note [facility] Date: 08/04/18 PRECAUTIONS: Seizure SUBJECTIVE: Katherine is agreeable to participating in PT. OBJECTIVE: Patient is able to independently don/doff socks. PAIN: No c/o pain BED MOBILITY/TRANSFERS Supine-sit: I Sit-supine: I Sit-stand: I Stand-sit: I GAIT Assistive Device: 4WW Weight bearing: Full Assist: S in a.m.; I in p.m. Distance: 100' + 200' in a.m.; 10' x2 in p.m. THEREX: Patient completed a resisted lower extremity strengthening program, as per flow sheet. She was able to tolerate a progression to standing exercise, as well as a progression in repetitions. TOILETING: Patient toileted independently. ASSESSMENT: Patient tolerated sessions without complaint. She was able to tolerate a progression in gait distance with 4WW support and supervision in a.m., and a progression in ther ex in p.m. Patient would benefit from continued global strengthening for improved activity tolerance. PLAN: Continue with PT's POC TREATMENT CODE/TIME: Session 1: 20 minutes; 99201 Session 2: 30 minutes; 75615 x2
[2018-08-04 15:35] VITALS: BP 96/66; PULSE 98; RESP 16; TEMP 36.1; O2SAT 96
[2018-08-04 20:15] VITALS: BP 103/68; PULSE 103; RESP 16; TEMP 35.6; O2SAT 97
[2018-08-04] MEDS: Melatonin 3 MG TAB 6 MG PO (20:21)
[2018-08-04 23:35] VITALS: BP 98/65; PULSE 101; RESP 16; TEMP 37.1; O2SAT 97
[2018-08-05 07:12] VITALS: BP 102/66; PULSE 87; RESP 18; TEMP 36.6; O2SAT 99
[2018-08-05] MEDS: Sertraline 50 MG TAB 25 MG PO (09:18)
[2018-08-05] MEDS: Levothyroxine 88 MCG TAB PO (09:19)
[2018-08-05] MEDS: Famotidine 20 MG TAB PO ×2 (09:19→20:01)
[2018-08-05] MEDS: levETIRAcetam 500 MG TAB PO ×2 (09:19→20:01)
[2018-08-05] MEDS: Multivitamin w/Minerals TAB 2 TAB PO (09:19)
--- NOTE | 2018-08-05 10:10 | PT.INTREAT ---
Date of service: 08/05/18 Time of Service: 09:30 PT Notes Inpatient Physical Therapy Treatment Note [facility] Date: 08/05/18 PRECAUTIONS:Fall Seizures SUBJECTIVE: Pt reports that she is doing well today. OBJECTIVE: [] Supine-sit: I Sit-stand: I Stand-sit: I GAIT Assistive Device: 4WW Weight bearing: Full Assist: CGA Distance: 100ft outside on uneven pavement THEREX: Pt completed LE strengthening ther ex as per flow sheet with a 2# wt. ASSESSMENT: Pt tolerated today's session well. PLAN: Cont as per PT POC. TREATMENT CODE/TIME: 9:30-10:00 (30) DIOGO MARLOW
[2018-08-05] MEDS: Melatonin 3 MG TAB 6 MG PO (20:01)
[2018-08-06] MEDS: Levothyroxine 88 MCG TAB PO (06:32)
[2018-08-06 07:11] VITALS: BP 103/62; PULSE 100; RESP 18; TEMP 36.5; O2SAT 98
[2018-08-06] MEDS: Multivitamin w/Minerals TAB 2 TAB PO (07:51)
[2018-08-06] MEDS: levETIRAcetam 500 MG TAB PO ×2 (07:52→19:24)
[2018-08-06] MEDS: Famotidine 20 MG TAB PO ×2 (07:52→19:24)
[2018-08-06] MEDS: Sertraline 50 MG TAB 25 MG PO (07:52)
--- NOTE | 2018-08-06 10:04 | PT.INTREAT ---
Date of service: 08/06/18 Time of Service: 09:35 PT Notes Inpatient Physical Therapy Treatment Note [facility] Date: 08/06/18 PRECAUTIONS:Fall/ Seizures SUBJECTIVE: Pt reports that she is tired from the shower this am. OBJECTIVE: [] Supine-sit: I Sit-supine: I Sit-stand: I Stand-sit: I GAIT Assistive Device: 4WW Weight bearing: Full Assist: CGA Distance: [id number] with 1 seated rest outside THEREX: Pt was too fatigued to complete her ther ex after her shower and walk outside today. ASSESSMENT: Pt tolerated today's session fairly well. She was noticeably more fatigued from the shower. PLAN: Cont as per PT POC. TREATMENT CODE/TIME: 25 TAx2
--- NOTE | 2018-08-06 10:07 | PTTR_ITS ---
Date of service: 08/06/18 Time of Service: 09:35 PT Notes Inpatient Physical Therapy Treatment Note [facility] Date: 08/06/18 PRECAUTIONS:Fall/ Seizures SUBJECTIVE: Pt reports that she is tired from the shower this am. OBJECTIVE: [] Supine-sit: I Sit-supine: I Sit-stand: I Stand-sit: I GAIT Assistive Device: 4WW Weight bearing: Full Assist: CGA Distance: [id number] with 1 seated rest outside THEREX: Pt was too fatigued to complete her ther ex after her shower and walk outside today. ASSESSMENT: Pt tolerated today's session fairly well. She was noticeably more fatigued from the shower. PLAN: Cont as per PT POC. TREATMENT CODE/TIME: 25 TAx2
--- NOTE | 2018-08-06 16:31 | PDOC.CMACT ---
Care Management Activity Note Katherine is enjoying visiting with her visitors including her parents and her best friend, Sami. She enjoys adult coloring, playing on her phone, watching TV and snacking on candy. She reported being able to walk outside with PT today and reported the weather was glorious. She shares hopes for going out again in the afternoon. She remains agreeable to discharge plan of home with new PT/OT and [employer] for [employer] consideration as she feels she could benefit from homemaking supports. She remains pleasant in interaction and engages easily with staff.
[2018-08-07] MEDS: Levothyroxine 88 MCG TAB PO (05:44)
[2018-08-07] MEDS: Famotidine 20 MG TAB PO ×2 (08:02→19:46)
[2018-08-07] MEDS: levETIRAcetam 500 MG TAB PO ×2 (08:02→19:46)
[2018-08-07] MEDS: Multivitamin w/Minerals TAB 2 TAB PO (08:02)
[2018-08-07] MEDS: Sertraline 50 MG TAB 25 MG PO (08:02)
--- NOTE | 2018-08-07 09:05 | OT.INTREAT ---
Date of service: 08/07/18 Time of Service: 08:40 Occupational Therapy Notes Occupational Therapy Inpatient Treatment Note Date: 08/07/18 PRECAUTIONS: Fall, Standard SUBJECTIVE: Pt states that she has had a lot of visitors over the weekend from friends and family. OBJECTIVE: PAIN:no c/o pain FUNCTIONAL MOBILITY Rolling L/R: (I) Supine-sit: (I) Sit-supine: (I) Sit-stand: (I) Stand-sit: (I) Bed-Chair: (S), 4WW Chair-bed: (S) 4WW BATHING: Upper Body: Standing at sink with 4WW washing face and head (I) DRESSING: Sitting in chair Upper Extremity: (I) Lower Extremity: (I) GROOMING: Standing at sink with 4WW (I) brushing teeth ASSESSMENT/PLAN: Pt is demonstrating increased (I) in her ADL routine. OT will assess putting on her shoes at next session with possible discharge from skilled OT services at that time. TREATMENT CODES/TIME: [id number], 30 minutes Mary Ellen Garland OTR/[facility]
--- NOTE | 2018-08-07 09:10 | OTTR_ITS ---
Date of service: 08/07/18 Time of Service: 08:40 Occupational Therapy Notes Occupational Therapy Inpatient Treatment Note Date: 08/07/18 PRECAUTIONS: Fall, Standard SUBJECTIVE: Pt states that she has had a lot of visitors over the weekend from friends and family. OBJECTIVE: PAIN:no c/o pain FUNCTIONAL MOBILITY Rolling L/R: (I) Supine-sit: (I) Sit-supine: (I) Sit-stand: (I) Stand-sit: (I) Bed-Chair: (S), 4WW Chair-bed: (S) 4WW BATHING: Upper Body: Standing at sink with 4WW washing face and head (I) DRESSING: Sitting in chair Upper Extremity: (I) Lower Extremity: (I) GROOMING: Standing at sink with 4WW (I) brushing teeth ASSESSMENT/PLAN: Pt is demonstrating increased (I) in her ADL routine. OT will assess putting on her shoes at next session with possible discharge from skilled OT services at that time. TREATMENT CODES/TIME: [id number], 30 minutes Mary Ellen Garland OTR/[facility]
[2018-08-07 11:31] VITALS: BP 118/78; PULSE 114; RESP 18; TEMP 36.1; O2SAT 99
--- NOTE | 2018-08-07 12:30 | PT.INTREAT ---
Date of service: 08/07/18 Time of Service: 12:30 PT Notes Inpatient Physical Therapy Treatment Note [facility] Date: 08/07/18 PRECAUTIONS: Fall, Seizure SUBJECTIVE: Katherine states that she feels tired today, she reports that she had a busy weekend with a lot of visitors. She also reports that she will be staying with her parents for a while upon discharge. OBJECTIVE: PAIN: No c/o pain BED MOBILITY/TRANSFER: Independent with all bed mobility and transfers GAIT Assistive Device: 4WW Weight bearing: Full Assist: I Distance: Approx. 400' Deviation: Seated rest x1 Gait training performed on a variety of surfaces, including pavement, carpet, tile, and uneven. Seated rest with 4WW: Performed independently, without need for cueing for safety. Patient demonstrates good safety awareness with use of brakes, locks, and seat. THEREX: Patient completed several resisted LE strengthening exercises, in a standing position, as per flow sheet. ASSESSMENT: Patient tolerated session well without complaint. She was able to tolerate a progression in gait distance with 4WW support, requiring seated rest x1, demonstrating good safety awareness and appropriate 4WW mechanics. PLAN: Continue with PT's POC TREATMENT CODE/TIME: 30 minutes; [id number], [id number]
--- NOTE | 2018-08-07 15:41 | CHAPLAIN ---
Katherine was resting in bed when I visited. She was pleasant and engaged in a conversation with me. She told me about attending [facility], [facility] and [facility]. 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 She talked about living at the [facility] and said friends from there have been in to visit, since she is much closer to home than she was at [facility]. I explained my role and offered support.
--- NOTE | 2018-08-07 15:43 | PT.INNT ---
Date of service: 08/07/18 Time of Service: 15:43 PT Notes Patient is pleasant in interaction, although refuses afternoon PT session, reporting that she feels very tired today, and would like to rest. Will attempt to resume PT services tomorrow morning.
[2018-08-07] MEDS: Melatonin 3 MG TAB 6 MG PO (19:46)
[2018-08-07] MEDS: Acetaminophen 325 MG TAB PO (19:46)
[2018-08-08] MEDS: Levothyroxine 88 MCG TAB PO (05:57)
[2018-08-08 07:06] VITALS: BP 101/66; PULSE 99; RESP 18; TEMP 36.4; O2SAT 99
[2018-08-08] MEDS: Multivitamin w/Minerals TAB 2 TAB PO (08:12)
[2018-08-08] MEDS: Famotidine 20 MG TAB PO ×2 (08:12→19:30)
[2018-08-08] MEDS: Sertraline 50 MG TAB 25 MG PO (08:12)
[2018-08-08] MEDS: levETIRAcetam 500 MG TAB PO ×2 (08:12→19:30)
--- NOTE | 2018-08-08 11:47 | OT.INDS ---
Date of service: 08/08/18 Time of Service: 10:55 Occupational Therapy Notes Occupational Therapy Inpatient Discharge Summary Date: 08/08/18 Dates of Service: 08/04/18-08/08/18 Referring Doctor:Josesito Lao MD OT Orders: Direct to swing admission, s/p craniotomy for recurrent meningioma. Assess for continued OT needs. Thank you. 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 She was recently in [facility] for 2 weeks s/p craniotomy for recurrent meningioma. She is here at [facility] under swing bed rehabilitation status. 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). She reports that she prior to admission to [facility] she was (I) with bathing with walk in shower and shower bench, (I) dressing, (I) eating, (I) with cooking. She has (A) with driving which she rides with family or friends from the [facility]. She is using a 4WW for functional mobility. She has had a significant Pmhx since she was in high school. Pt has family support locally however she reports that most of her family resides in [place]. Equipment owned/DME: 4WW, shower bench, grab bars, walk in shower SUBJECTIVE: Pt was sitting in bed when OT arrived. She reports that she has performed all bathing routines with nursing. Discussion with OT on (I) and pt feels that she is (I) and no longer needs OT services. OT does agree with this at this time. OBJECTIVE: General Observation:pleasant and answered questions appropriately Mental Status: A&Ox3 Pain: no c/o pain ROM: RUE Shoulder flexion actively to 30* and passively WNL, elbow WNL, hand/digits unable to fully extend digits, decreased thenar eminence d/t muscle wasting, no pain with passive mobilization hand sits in claw like formation possibly d/t contractures in IP joints. L UE Shoulder flexion actively to WNL, elbow WNL, hand/digits WNL STRENGTH: RUE Shoulder flexion modified 2/5, elbow 3+/5, bioengineer is weak d/t decreased ROM hand/digits LUE Shoulder flexion modified 4-/5, elbow 4/5, bioengineer is strong Pt was (R) hand dominant prior to 2002 and now uses her (L) hand as her more dominant hand. NO skilled services provided for this documentation, this is a summary of pts care. FUNCTIONAL MOBILITY/ADLS: Transfers with 4WW Sit-Stand S, 4WW Stand-sit S,4WW BATHING In shower Bathing UE (I) with min vc for sequencing washing Bathing LE (I) DRESSING In seated position Dressing UE (I) with [place] technique Dressing LE (I) with good technique GROOMING standing at sink 4WW (I) TOILETING On toilet (I) toileting hygiene EATING (I) BALANCE: Static sitting Normal Dynamic Sitting Normal Static Standing Good Dynamic Standing Good ASSESSMENT: Patient is a 33-year-old female referred to occupational therapy services with diagnosis of s/p craniotomy for recurrent meningioma. Pt was seen for 2 skilled OT sessions. She functionally is demonstrating increased (I) in her ADL routines. She is able to perform them with use of 4WW and safe techniques. OT recommends that pt return home when medically cleared per MD. GOALS- ALL MET 1. Transfers 4WW, (I) 2. Dressing (I) in sitting position 3. Bathing (I) in shower with good sequencing techniques 4. Toileting (I) on toilet 5. Eating (I) 6. Grooming standing at sink with 4WW (I) PLAN OF CARE/TREATMENT PLAN: Discharge skilled OT services DISCHARGE RECOMMENDATIONS OT recommends that pt return home with services for assessment of pts ADLs in home setting when medically cleared TREATMENT TIME/MINUTES/CODES N/A Mary Ellen Garland OTR/L [facility]
--- NOTE | 2018-08-08 11:51 | OTDS_ITS ---
Date of service: 08/08/18 Time of Service: 10:55 Occupational Therapy Notes Occupational Therapy Inpatient Discharge Summary Date: 08/08/18 Dates of Service: 08/04/18-08/08/18 Referring Doctor:Josesito Lao MD OT Orders: Direct to swing admission, s/p craniotomy for recurrent meningioma. Assess for continued OT needs. Thank you. 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 She was recently in [facility] for 2 weeks s/p craniotomy for recurrent meningioma. She is here at [facility] under swing bed rehabilitation status. 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 She reports that she prior to admission to [facility] she was (I) with bathing with walk in shower and shower bench, (I) dressing, (I) eating, (I) with cooking. She has (A) with driving which she rides with family or friends from the [facility]. She is using a 4WW for functional mobility. She has had a significant Pmhx since she was in high school. Pt has family support locally however she reports that most of her family resides in [place]. Equipment owned/DME: 4WW, shower bench, grab bars, walk in shower SUBJECTIVE: Pt was sitting in bed when OT arrived. She reports that she has performed all bathing routines with nursing. Discussion with OT on (I) and pt feels that she is (I) and no longer needs OT services. OT does agree with this at this time. OBJECTIVE: General Observation:pleasant and answered questions appropriately Mental Status: A&Ox3 Pain: no c/o pain ROM: RUE Shoulder flexion actively to 30* and passively WNL, elbow WNL, hand/digits unable to fully extend digits, decreased thenar eminence d/t muscle wasting, no pain with passive mobilization hand sits in claw like formation possibly d/t contractures in IP joints. L UE Shoulder flexion actively to WNL, elbow WNL, hand/digits WNL STRENGTH: RUE Shoulder flexion modified 2/5, elbow 3+/5, lithograph printer is weak d/t decreased ROM hand/digits LUE Shoulder flexion modified 4-/5, elbow 4/5, lithograph printer is strong Pt was (R) hand dominant prior to 2002 and now uses her (L) hand as her more dominant hand. NO skilled services provided for this documentation, this is a summary of pts care. FUNCTIONAL MOBILITY/ADLS: Transfers with 4WW Sit-Stand S, 4WW Stand-sit S,4WW BATHING In shower Bathing UE (I) with min vc for sequencing washing Bathing LE (I) DRESSING In seated position Dressing UE (I) with [place] technique Dressing LE (I) with good technique GROOMING standing at sink 4WW (I) TOILETING On toilet (I) toileting hygiene EATING (I) BALANCE: Static sitting Normal Dynamic Sitting Normal Static Standing Good Dynamic Standing Good ASSESSMENT: Patient is a 33-year-old female referred to occupational therapy services with diagnosis of s/p craniotomy for recurrent meningioma. Pt was seen for 2 skilled OT sessions. She functionally is demonstrating increased (I) in her ADL routines. She is able to perform them with use of 4WW and safe techniques. OT recommends that pt return home when medically cleared per MD. GOALS- ALL MET 1. Transfers 4WW, (I) 2. Dressing (I) in sitting position 3. Bathing (I) in shower with good sequencing techniques 4. Toileting (I) on toilet 5. Eating (I) 6. Grooming standing at sink with 4WW (I) PLAN OF CARE/TREATMENT PLAN: Discharge skilled OT services DISCHARGE RECOMMENDATIONS OT recommends that pt return home with services for assessment of pts ADLs in home setting when medically cleared TREATMENT TIME/MINUTES/CODES N/A Mary Ellen Garland OTR/L [facility]
--- NOTE | 2018-08-08 15:20 | PDOC.CMPRO ---
- If Service Date Differs Date of service: 08/08/18 Time of Service: 15:20 Care Management Progress Note S/O: CM met with patient at the bedside she is engaged during assessment. She is open about her history and her diagnosis. She is willing to return home tomorrow with new home health services CM did contact [facility] and spoke with Micah Uriarte he states he did submit the [facility] application and reviewed financial documentation that will need to be submitted. CM did reach out to [facility] clinical specialist they have not received information related to the application. CM requested [facility] fax the application that was submitted on 07/24/18 to be able to follow up with patient and her mom who is her DPOA. Katherine did agree to palliative care consult today and CM notified the service and spoke with r/t the referral. Per PT patient had met her goals and should be discharged from services and continue with new home health services through [facility] including PT/OT and nursing and TRAY SERVICE WORKER. VERNON did review plan with Katherine's Mom she expresses concern that Katherine has not done well independently recently and that she was not caring for herself at home. CM reassured Mom that services will be ordered for support at home. A: Katherine is a 33 year old female admitted for SB1 status post craniotomy. P: Katherine will be discharged home with new home health services she will be returning home with Aurea Arevalo. CM did review [facility] notes today Katherine is aware that she will need to follow up with [facility] as directed. Palliative care will complete an initial visit and then continue to provide support in the community. She will need RCT for transportation ongoing and meals on wheels. CM sent a referral for services to [facility] for [facility]. She will benefit from services that allow her to stay independent in the community. LTM application is pending CM sent a message to [facility] clinical requesting a clinical assessment be complected while here at [facility]. Mom will transport Katherine home at time of discharge. Anticipate discharge home by the end of the week.
--- NOTE | 2018-08-08 15:24 | CMPROGNOTE_ITS ---
- If Service Date Differs Date of service: 08/08/18 Time of Service: 15:20 Care Management Progress Note S/O: CM met with patient at the bedside she is engaged during assessment. She is open about her history and her diagnosis. She is willing to return home tomorrow with new home health services CM did contact [facility] and spoke with Micah Uriarte he states he did submit the [facility] application and reviewed financial documentation that will need to be submitted. CM did reach out to [facility] clinical specialist they have not received information related to the application. CM requested [facility] fax the application that was submitted on 07/24/18 to be able to follow up with patient and her mom who is her DPOA. Katherine did agree to palliative care consult today and CM notified the service and spoke with r/t the referral. Per PT patient had met her goals and should be discharged from services and continue with new home health services through [facility] including PT/OT and nursing and DYE HOUSE HAND. VERNON did review plan with Katherine's Mom she expresses concern that Katherine has not done well independently recently and that she was not caring for herself at home. CM reassured Mom that services will be ordered for support at home. A: Katherine is a 33 year old female admitted for SB1 status post craniotomy. P: Katherine will be discharged home with new home health services she will be returning home with Aurea Arevalo. CM did review [facility] notes today Katherine is aware that she will need to follow up with [facility] as directed. Palliative care will complete an initial visit and then continue to provide support in the community. She will need RCT for transportation ongoing and meals on wheels. CM sent a referral for services to [facility] for Independent Living. She will benefit from services that allow her to stay independent in the community. LTM application is pending CM sent a message to [facility] clinical requesting a clinical assessment be complected while here at [facility]. Mom will transport Katherine home at time of discharge. Anticipate discharge home by the end of the week.
--- NOTE | 2018-08-08 16:28 | PT.INTREAT ---
Date of service: 08/08/18 Time of Service: 16:28 PT Notes Inpatient Physical Therapy Treatment Note [facility] Date: 08/08/18 PRECAUTIONS: Fall, seizure SUBJECTIVE: Rahel reports that she is feeling good today. She is agreeable to discharging home within the next few days, she feels that she will be ready. OBJECTIVE: PAIN: No complaints of pain BED MOBILITY/TRANSFERS Supine-sit: I Sit-supine: I Sit-stand: I Stand-sit: I GAIT Assistive Device: 4WW Weight bearing: Full Assist: I Distance: 150' STAIRS: Up/down 3x4 and 2x6 using one rail and a step to pattern with SBA ASSESSMENT: Patient tolerated session well without complaint. Patient was able to tolerate stair training with SBA and minimal cueing. PLAN: Continue with PTs POC TREATMENT CODE/TIME: 15 minutes; [id number]
[2018-08-08] MEDS: Melatonin 3 MG TAB 6 MG PO (19:30)
[2018-08-09] MEDS: Levothyroxine 88 MCG TAB PO (05:48)
[2018-08-09 07:15] VITALS: BP 100/69; PULSE 97; RESP 18; TEMP 36.2; O2SAT 95
[2018-08-09] MEDS: Famotidine 20 MG TAB PO (08:43)
[2018-08-09] MEDS: levETIRAcetam 500 MG TAB PO (08:43)
[2018-08-09] MEDS: Multivitamin w/Minerals TAB 2 TAB PO (08:44)
[2018-08-09] MEDS: Sertraline 50 MG TAB 25 MG PO (08:44)
[2018-08-09 09:20] VITALS: O2SAT 99
--- NOTE | 2018-08-09 13:07 | W.PM.DS.N ---
Date of service: 08/09/18 Time of Service: 13:07 DS: Diagnosis Discharge Diagnosis (1) Meningioma, recurrent of brain: Status: Chronic (2) History of sarcoma: Status: Chronic (3) Quadriparesis (muscle weakness): Status: Chronic (4) Seizure disorder: Status: Chronic (5) Hypothyroidism: Status: Chronic (6) GERD (gastroesophageal reflux disease): Status: Chronic Discharge Plan Disposition Patient Disposition: HOME W/HOME HEALTH SERVICE Condition: Improving Discharge Details Reason For Visit: RECURRENT INTRACRANIAL MENINGIOMA Admit Date/Time: 08/03/18 12:27 Admit Provider: Josesito Lao Attending Provider: Josesito Lao Primary Care Provider: Anupama Joya Hospital Course Hospital Course: Katherine aBugh is a very pleasant 33 year old female with a past medical history significant for 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 She also has a history of GERD, Hypothyroidism, Asthma, as well as Seizure Disorder (in setting of intracranial masses). 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 Her post-op course was complicated by a left Facial Droop, dysarthria, and LUE weakness, along with an inability to swallow. These symptoms reportedly resolved over the course of the next week with patient receiving steroid therapy in the form of Decadron. She is noted to have a chronic and unchanged right eye ptosis and RUE weakness. She was transferred to [facility] on 08/03/18 and admitted to swing bed status for continued PT and OT prior to returning home to her apartment where she resides independently at the [facility] in [place], [place]. She worked with PT and OT and progressed well. She was able to tolerate stair training. PT has deemed her safe to return to her apartment at the [facility]. She will have ongoing PT/OT/RN/DOWEL INSPECTOR through home health. She was initiated on Keppra at [facility] and needs to remain on seizure prophylaxis until her follow up with neurosurgery at minimum. She will follow up with her PCP as scheduled. She will follow up with [facility] as previously scheduled- Care management is contacting [facility] to ensure that she is scheduled for follow up with neurosurgery. Home Meds and New Rx's Prescriptions: Continued acetaminophen 325 mg Tablet 650 mg PO Q4H PRN PRN (Reason: Pain) RF: 0 sertraline 50 mg Tablet 50 mg PO DAILY RF: 0 Multi-Day Plus Minerals 18 mg iron-400 mcg-25 mcg Tablet 2 tab PO DAILY RF: 0 melatonin 5 mg Tablet,Chewable 6 mg PO HS RF: 0 sennosides-docusate sodium [Senna Laxative-Stool Softener] 8.6-50 mg Tablet 2 tab PO BID RF: 0 levetiracetam 500 mg Tablet 500 mg PO BID Qty: 60 RF: 0 levothyroxine 88 mcg Tablet 88 mcg PO DAILY Qty: 30 RF: 0 famotidine 20 mg Tablet 20 mg PO DAILY Qty: 30 RF: 0 Discontinued dexamethasone 1 mg Tablet 1 mg PO DAILY RF: 0 Discharge Instructions Instructions: Meningioma (DC) Additional Instructions: Take keppra until you follow up with neurosurgery at [facility]. Follow up with [facility] as scheduled. Follow up with your PCP as scheduled. Take care! Stand Alone Forms: Nursing Discharge Form Referrals: Anupama Joya [Primary Care Provider] - JOSE DERAS [ NON-[facility] STAFF PHYSICIAN] - 09/05/18 9:25 am Activity:: Activity as Tolerated Equipment/Supplies:: No Equipment Needed Diet:: As Tolerated Discharge Orders Discharge Orders: Discharge Order (Routine); Ordered 08/09/18 Ordered By: Becky Núñez Exam Narrative Exam Narrative: General: Patient appears comfortable, sitting up in bed. AAOX3, NAD HEENT: Right eyelid closed. mucous membranes moist. Skin: Surgical site at craniotomy on right appears to be healing, incision well approximated, no erythema or drainage. Neck: Supple CV: Regular, nontachycardic, S1S2, No rubs, murmurs, or gallops. Pulmonary: Clear to auscultation bilaterally, no rales or wheezing. Abdomen: + Bowel Sounds, soft, nontender, nondistended Vascular: No lower extremity edema, no clubbing or cyanosis. Neurologic: Appearance of right eye ptosis. Noted RUE weakness. Psych: Normal mood and affect. Pleasant and talkative. DS: Data Vitals/I&O Vitals and I&O: Vital Signs Temperature 36.2 C L 08/09/18 07:15 Temperature Source Tympanic 08/09/18 07:15 Pulse 97 H 08/09/18 07:15 Pulse Rhythm Regular 08/09/18 07:45 Respiratory Rate 18 08/09/18 07:15 Respiratory Effort Non-Labored 08/09/18 07:45 Respiratory Depth Normal 08/09/18 07:45 Respiratory Pattern Normal 08/09/18 07:45 Blood Pressure 100/69 08/09/18 07:15 Pulse Oximetry 95 08/09/18 07:15 Oxygen Delivery Method Room Air 08/09/18 07:15 Oxygen Flow Rate 0 08/09/18 07:15 Pain Level 0 08/07/18 11:31 Intake & Output 08/08/18 08/09/18 08/09/18 23:59 11:59 23:59 Intake Total 480 / 720 440 / 680 240 / 680 Output Total 200 / 200 100 / 100 Balance 280 / 520 340 / 580 240 / 580 Weight 54.601 kg Intake: Oral 480 / 720 440 / 680 240 / 680 Output: Urine 200 / 200 100 / 100 Other: Urine Color Yellow Yellow Urine Appearance Clear Clear Comment pt gets up herself to void pt reports getting up multiple times to void last night. Voiding Methods Toilet Toilet [facility] Medical History Meningioma, recurrent of brain (Chronic) Neurofibromatosis II (Chronic) History of sarcoma (Chronic) Asthma (Chronic) Quadriparesis (muscle weakness) (Chronic) Seizure disorder (Chronic) Hypothyroidism (Chronic) GERD (gastroesophageal reflux disease) (Chronic) Surgical History S/P craniotomy (Chronic)
--- NOTE | 2018-08-09 13:10 | DSE_ITS ---
Date of service: 08/09/18 Time of Service: 13:07 DS: Diagnosis Discharge Diagnosis (1) Meningioma, recurrent of brain: Status: Chronic (2) History of sarcoma: Status: Chronic (3) Quadriparesis (muscle weakness): Status: Chronic (4) Seizure disorder: Status: Chronic (5) Hypothyroidism: Status: Chronic (6) GERD (gastroesophageal reflux disease): Status: Chronic Discharge Plan Disposition Patient Disposition: HOME W/HOME HEALTH SERVICE Condition: Improving Discharge Details Reason For Visit: RECURRENT INTRACRANIAL MENINGIOMA Admit Date/Time: 08/03/18 12:27 Admit Provider: Josesito Lao Attending Provider: Josesito Lao Primary Care Provider: Anupama Joya Hospital Course Hospital Course: Katherine Baugh is a very pleasant 33 year old female with a past medical history significant for 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 She also has a history of GERD, Hypothyroidism, Asthma, as well as Seizure Disorder (in setting of intracranial masses). 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 Her post-op course was complicated by a left Facial Droop, dysarthria, and LUE weakness, along with an inability to swallow. These symptoms reportedly resolved over the course of the next week with patient receiving steroid therapy in the form of Decadron. She is noted to have a chronic and unchanged right eye ptosis and RUE weakness. She was transferred to [facility] on 08/03/18 and admitted to swing bed status for continued PT and OT prior to returning home to her apartment where she resides independently at the [facility] in [place], [place]. She worked with PT and OT and progressed well. She was able to tolerate stair training. PT has deemed her safe to return to her apartment at the [facility]. She will have ongoing PT/OT/RN/MATTRESS FILLING MACHINE TENDER through home health. She was initiated on Keppra at [facility] and needs to remain on seizure prophylaxis until her follow up with neurosurgery at minimum. She will follow up with her PCP as scheduled. She will follow up with [facility] as previously scheduled- Care management is contacting [facility] to ensure that she is scheduled for follow up with neurosurgery. Home Meds and New Rx's Prescriptions: Continued acetaminophen 325 mg Tablet 650 mg PO Q4H PRN PRN (Reason: Pain) RF: 0 sertraline 50 mg Tablet 50 mg PO DAILY RF: 0 Multi-Day Plus Minerals 18 mg iron-400 mcg-25 mcg Tablet 2 tab PO DAILY RF: 0 melatonin 5 mg Tablet,Chewable 6 mg PO HS RF: 0 sennosides-docusate sodium [Senna Laxative-Stool Softener] 8.6-50 mg Tablet 2 tab PO BID RF: 0 levetiracetam 500 mg Tablet 500 mg PO BID Qty: 60 RF: 0 levothyroxine 88 mcg Tablet 88 mcg PO DAILY Qty: 30 RF: 0 famotidine 20 mg Tablet 20 mg PO DAILY Qty: 30 RF: 0 Discontinued dexamethasone 1 mg Tablet 1 mg PO DAILY RF: 0 Discharge Instructions Instructions: Meningioma (DC) Additional Instructions: Take keppra until you follow up with neurosurgery at [facility]. Follow up with [facility] as scheduled. Follow up with your PCP as scheduled. Take care! Stand Alone Forms: Nursing Discharge Form Referrals: Anupama Joya [Primary Care Provider] - JOSE DERAS [ NON-[facility] STAFF PHYSICIAN] - 09/05/18 9:25 am Activity:: Activity as Tolerated Equipment/Supplies:: No Equipment Needed Diet:: As Tolerated Discharge Orders Discharge Orders: Discharge Order (Routine); Ordered 08/09/18 Ordered By: Becky Núñez Exam Narrative Exam Narrative: General: Patient appears comfortable, sitting up in bed. AAOX3, NAD HEENT: Right eyelid closed. mucous membranes moist. Skin: Surgical site at craniotomy on right appears to be healing, incision well approximated, no erythema or drainage. Neck: Supple CV: Regular, nontachycardic, S1S2, No rubs, murmurs, or gallops. Pulmonary: Clear to auscultation bilaterally, no rales or wheezing. Abdomen: + Bowel Sounds, soft, nontender, nondistended Vascular: No lower extremity edema, no clubbing or cyanosis. Neurologic: Appearance of right eye ptosis. Noted RUE weakness. Psych: Normal mood and affect. Pleasant and talkative. DS: Data Vitals/I&O Vitals and I&O: Vital Signs Temperature 36.2 C L 08/09/18 07:15 Temperature Source Tympanic 08/09/18 07:15 Pulse 97 H 08/09/18 07:15 Pulse Rhythm Regular 08/09/18 07:45 Respiratory Rate 18 08/09/18 07:15 Respiratory Effort Non-Labored 08/09/18 07:45 Respiratory Depth Normal 08/09/18 07:45 Respiratory Pattern Normal 08/09/18 07:45 Blood Pressure 100/69 08/09/18 07:15 Pulse Oximetry 95 08/09/18 07:15 Oxygen Delivery Method Room Air 08/09/18 07:15 Oxygen Flow Rate 0 08/09/18 07:15 Pain Level 0 08/07/18 11:31 Intake & Output 08/08/18 08/09/18 08/09/18 23:59 11:59 23:59 Intake Total 480 / 720 440 / 680 240 / 680 Output Total 200 / 200 100 / 100 Balance 280 / 520 340 / 580 240 / 580 Weight 54.601 kg Intake: Oral 480 / 720 440 / 680 240 / 680 Output: Urine 200 / 200 100 / 100 Other: Urine Color Yellow Yellow Urine Appearance Clear Clear Comment pt gets up herself to void pt reports getting up multiple times to void last night. Voiding Methods Toilet Toilet [facility] Medical History Meningioma, recurrent of brain (Chronic) Neurofibromatosis II (Chronic) History of sarcoma (Chronic) Asthma (Chronic) Quadriparesis (muscle weakness) (Chronic) Seizure disorder (Chronic) Hypothyroidism (Chronic) GERD (gastroesophageal reflux disease) (Chronic) Surgical History S/P craniotomy (Chronic)
--- NOTE | 2018-08-09 13:44 | PDOC.CMDIS ---
- If Service Date Differs Date of service: 08/09/18 Time of Service: 13:44 LACE Index Scoring Tool - Questions: Length of Stay (in days): 7 - 13 Acuity (Admit via E.D.?): No Comorbidities: Any Tumor E.D. Visits: 0 - Answers: Total Score: 7 Risk of Readmission: Low Risk Care Management Discharge Discharge Plan: Katherine will be discharged home with the following servcies resumption of meals on wheels and SASH. New referrals to [place] peer support, COA, LTM, MIRNA, Nursing, PT/OT and VALET RUNNER, RCT. CM coordinated VPHARM, and Medicare Part D through [facility] at [facility]. CM contacted LTM nurse and verified the application has been submitted. CM will fax information and services referred to home health for follow up in the community. CM contacted home health and reviewed the plan as well as with patient and her Mother. CM requested that they continued to assist with coordination of services in the community. CM faxed updated to [facility], [facility], and . [facility] [place], [place] they will resubmit the medications to insurance when Vpharm should be acitive. CM will follow up with patient and pharmacy. Patient/Family Education Needs: Discharge education, limitations and follow up plan of care including ask me three and plan for community resources. Services Needed at Discharge: DME Agency, Home Delivered Meals, Occupational Therapy, Physical Therapy, Transportation
--- NOTE | 2018-08-09 14:02 | CMDISCH_ITS ---
- If Service Date Differs Date of service: 08/09/18 Time of Service: 13:44 LACE Index Scoring Tool - Questions: Length of Stay (in days): 7 - 13 Acuity (Admit via E.D.?): No Comorbidities: Any Tumor E.D. Visits: 0 - Answers: Total Score: 7 Risk of Readmission: Low Risk Care Management Discharge Discharge Plan: Katherine will be discharged home with the following servcies resumption of meals on wheels and SASH. New referrals to [place] peer support, COA, LTM, MIRNA, Nursing, PT/OT and ENGRAVER FLATWARE, RCT. CM coordinated VPHARM, and Medicare Part D through [facility] at [facility]. CM contacted LTM nurse and verified the application has been submitted. CM will fax information and services referred to home health for follow up in the community. CM contacted home health and reviewed the plan as well as with patient and her Mother. CM requested that they continued to assist with coordination of services in the community. CM faxed updated to [facility], [facility], and . CM contacted [facility] in [place], [place] they will resubmit the medications to insurance when Vpharm should be acitive. CM will follow up with patient and pharmacy. Patient/Family Education Needs: Discharge education, limitations and follow up plan of care including ask me three and plan for community resources. Services Needed at Discharge: DME Agency, Home Delivered Meals, Occupational Therapy, Physical Therapy, Transportation
--- NOTE | 2018-08-09 14:30 | PDOC.HHF2F ---
1. Encounter Date and Reason I certify that DHAVAL NAGY was seen by Becky Núñez on 08/09/18 and that I had a [id number] encounter with this patient that meets the physician face to face encounter requirements. 2. Clinical Findings Supporting Skilled Need and Homebound Status I certify that home health services are medically necessary, include either intermittent half-way and/or physical/speech therapy, and that this patient is homebound in that absences from the home require considerable and taxing effort and are infrequent or of short duration, or are attributable to the need to receive medical care. [X] (a) Attached documentation from encounter provides clinical findings supporting skilled need and homebound status (including what assistance patient requires to leave the home). The encounter with the patient was in whole, or in part, for the following medical condition, which is the primary reason for home health care: RECURRENT INTRACRANIAL MENINGIOMA r/t neurofibromatosis II, s/p resection, seizure disorder Halfway: Needed to monitor medical conditions, assess/monitor incision, assist with medication management as needed. Physical Therapy: Needed to continue to work on strength and endurance after hospitalization. OT: needed to assess/eval home setting and make recommendations as needed. CONTENT STRATEGY LEAD: needed to help connect with resources in the community to provide support as needed. Speech Therapy: Homebound: Unable to leave home without assistance. 3. Certification and Authentication I certify that I composed the above information based on my clinical judgement relating to this patient's medical condition and, if applicable, clinical findings communicated to me by the NPP or inpatient physician who performed the Home Health Referral. All further orders will be obtained through PCP: Anupama Joya (same office as Dr. Neely)_(Community Based Physician - PCP)
--- NOTE | 2018-08-09 14:34 | HHF2F_ITS ---
1. Encounter Date and Reason I certify that DHAVAL NAGY was seen by Becky Núñez on 08/09/18 and that I had a [id number] encounter with this patient that meets the physician face to face encounter requirements. 2. Clinical Findings Supporting Skilled Need and Homebound Status I certify that home health services are medically necessary, include either intermittent [place] and/or physical/speech therapy, and that this patient is homebound in that absences from the home require considerable and taxing effort and are infrequent or of short duration, or are attributable to the need to receive medical care. [X] (a) Attached documentation from encounter provides clinical findings supporting skilled need and homebound status (including what assistance patient requires to leave the home). The encounter with the patient was in whole, or in part, for the following medical condition, which is the primary reason for home health care: RECURRENT INTRACRANIAL MENINGIOMA r/t neurofibromatosis II, s/p resection, seizure disorder Fpc: Needed to monitor medical conditions, assess/monitor incision, assist with medication management as needed. Physical Therapy: Needed to continue to work on strength and endurance after hospitalization. OT: needed to assess/eval home setting and make recommendations as needed. SEAFOOD MANAGER: needed to help connect with resources in the community to provide support as needed. Speech Therapy: Homebound: Unable to leave home without assistance. 3. Certification and Authentication I certify that I composed the above information based on my clinical judgement relating to this patient's medical condition and, if applicable, clinical findings communicated to me by the NPP or inpatient physician who performed the Home Health Referral. All further orders will be obtained through PCP: Anupama Joya (same office as Dr. Neely)_(Community Based Physician - PCP)
--- NOTE | 2018-08-10 17:14 | PT.INDS ---
Date of service: 08/09/18 PT Notes Inpatient Physical Therapy Discharge Summary Dates: 08/09/2018 Dates of Service: 08/03/2018 through 08/08/2018 This is a clinical summary of skilled PT services provided on the dates listed above. No charge was made in the completion of this documentation. Referring Doctor: Josesito Lao MD PT Orders: PT CONSULT: Direct to swing admission. S/P craniotomy for recurrent meningioma. Assess for continued OT needs. Thank you. Precautions: Fall. Standard. Patient Profile/Admitting Diagnosis: Orders were received for this 33-year-old female who is S/P elective right craniectomy for resection/debulking of a large right cavernous/frontotemporal mass on 07/20/2018 at [facility]. Patient's postoperative course was complicated with new onset facial droop, dysarthria, and intermittent L UE weakness, and inability to swallow from brainstem swelling. These symptoms were successfully managed and were fully resolved with a steroid Decadron within intake for 7 days while at [facility]. 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 PMHX: Medical History Meningioma, recurrent of brain (Chronic) Neurofibromatosis II (Chronic) History of sarcoma (Chronic) Asthma (Chronic) Quadriparesis (muscle weakness) (Chronic) Seizure disorder (Chronic) Hypothyroidism (Chronic) GERD (gastroesophageal reflux disease) (Chronic) Surgical History S/P craniotomy (Chronic) Social History/Home Situation: Katherine lives alone on the fourth floor of an apartment building in [place], [place] with both ramp and 5 steps to enter. Prior to admission, she spends weekends at her mother's house where there are 4 steps to enter. Patient states she has a shower chair and owns a 4WW which she says she has used since 2016. Katherine reports that she gets meal on wheels for lunch and is able to make herself breakfast and supper. She used to work at the [employer] but had to stop after the last surgery she had in 2016. Current Functional Limitations: Requires assistance and assistive device with ambulation task performance with decreased safety of MRADL performance due to balance impairment Equipment Owned/DME: 4WW, shower chair Subjective: NT Objective: General Observation: NT Mental Status: NT Pain: NT ROM: Right Upper Extremity: Shoulder Flexion less than 50% of AROM. Shoulder abduction less than 50% of AROM. Elbow flexion WFL. Elbow extension WFL. Wrist flexion about 0-10. Wrist extension about 0-5. Patient able to partially extend fingers to neutral and has weak occupational physician. Left Upper Extremity: Shoulder Flexion WFL. Shoulder abduction WFL. Elbow flexion WFL. Wrist flexion WFL. Functional opening and closing of hand WFL. Right Lower Extremity: Hip flexion WFL. Hip abduction WFL. Knee flexion WFL. Ankle dorsiflexion WFL. Ankle plantarflexion WFL. Left Lower Extremity: Hip flexion WFL. Hip abduction WFL. Knee flexion WFL. Ankle dorsiflexion WFL. Ankle plantarflexion WFL. Strength: Right Upper Extremity: Shoulder flexors 3-/5. Shoulder abductors 3-/5. Elbow flexors 3/5. Elbow extensors 3+/5. Wrist flexors 3-/5. Wrist extensors 3-/5. Academic Services Professional weak. Left Upper Extremity: Shoulder flexors 4/5. Shoulder abductors 4/5. Elbow flexors 4/5. Elbow extensors 4/5. Academic Services Professional strong. Right Lower Extremity: Hip flexors 4/5. Hip abductors 4/5. Knee flexors 4/5. Knee extensors 4/5. Ankle dorsiflexors 4/5. Ankle plantarflexors 4/5. Left Lower Extremity:Hip flexors 4/5. Hip abductors 4/5. Knee flexors 4/5. Knee extensors 4/5. Ankle dorsiflexors 4/5. Ankle plantarflexors 4/5. Bed Mobility/Transfers: Rolling I Supine to sit I Sit to supine I Sit to stand I Stand to sit I Bed to chair I Chair to bed I Gait: Patient is now independent for all level surface ambulation 150 feet WW with full weightbearing. Balance: Static Sitting: Good Dynamic Sitting: Good Static Standing: Fair Dynamic Standing: Fair 4-Stage Balance Test. Patient able to assume positions 1 and 2 safely for 10 seconds but not able to with tandem stance and one-legged stance. Assessment: Patient is a 33 Year old female referred to physical therapy services with previous recurrent meningioma resection now with diagnosis S/P meningioma resection of a large frontotemporal mass in the cavernous sinus on 07/20/2018. Patient presents with clinical signs and symptoms consistent with current/admitting diagnoses that have resulted to mobility limitations, gait instability, generalized weakness, and impairment of motor control as demonstrated by the following impairment level findings: 1. Decreased strength to B LE major muscle groups and R UE 2. Impaired standing balance 3. Impaired activity tolerance 4. Residual deficit in R shoulder, elbow, and wrist/hand from C6/C7 sarcoma in 2016 5. Decreased visual acuity due to CN III and IV affectation Impairments are contributing to the following functional limitations: 1. Increased completion time for bed mobility skills 2. Increased dependence with transfers 3. Inability to safely ambulate without assistive device and physical assistance 4. Increase completion time for mobility ADL performance 5. Increased fall risk 6. Inability to negotiate steps alone safely Goals: Goals X1 week 1. Sit-Stand independent MEt 2. Stand-Sit independent MET 3. Bed-Chair independent MET 4. Chair-Bed independent MET 5. Independent gait on level surface with use of least restrictive device for at least 300 feet without report of pain nor dyspnea NOT MET 6. Independent gait on paved surfaces outdoors for at least 200 feet without report of pain nor dyspnea NOT MET 6. Independent stair negotiation while holding onto bilateral rails for at least 5 steps without report of pain nor dyspnea NOT MET 7. Independent with home exercise program MET 8. Good static and dynamic standing balance/tolerance NOT MET DISCHARGE RECOMMENDATIONS: Will benefit from home health PT/OT services in order to progress to independent mobility performance without use of assistive device, assess home safety/adaptive equipment/DME needs, establish/implement a functional maintenance program for strengthening, facilitate reintegration to community. TREATMENT CODE/TIME: [place] Thank you very much for this referral. Myrna Kendrick, PT, DPT, CLT [facility]
--- NOTE | 2018-08-10 17:20 | INDS_ITS ---
Date of service: 08/09/18 PT Notes Inpatient Physical Therapy Discharge Summary Dates: 08/09/2018 Dates of Service: 08/03/2018 through 08/08/2018 This is a clinical summary of skilled PT services provided on the dates listed above. No charge was made in the completion of this documentation. Referring Doctor: Josesito Lao MD PT Orders: PT CONSULT: Direct to swing admission. S/P craniotomy for recurrent meningioma. Assess for continued OT needs. Thank you. Precautions: Fall. Standard. Patient Profile/Admitting Diagnosis: Orders were received for this 33-year-old female who is S/P elective right craniectomy for resection/debulking of a large right cavernous/frontotemporal mass on 07/20/[address] [facility] Patient's postoperative course was complicated with new onset facial droop, dysarthria, and intermittent L UE weakness, and inability to swallow from brainstem swelling. These symptoms were successfully managed and were fully resolved with a steroid Decadron within intake for [address] [facility]. 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 PMHX: Medical History Meningioma, recurrent of brain (Chronic) Neurofibromatosis II (Chronic) History of sarcoma (Chronic) Asthma (Chronic) Quadriparesis (muscle weakness) (Chronic) Seizure disorder (Chronic) Hypothyroidism (Chronic) GERD (gastroesophageal reflux disease) (Chronic) Surgical History S/P craniotomy (Chronic) Social History/Home Situation: Katherine lives alone on the fourth floor of an apartment building in [place], [place] with both ramp and 5 steps to enter. Prior to admission, she spends weekends at her mother's house where there are 4 steps to enter. Patient states she has a shower chair and owns a 4WW which she says she has used since 2016. Katherine reports that she gets meal on wheels for lunch and is able to make herself breakfast and supper. She used to work at the [employer] but had to stop after the last surgery she had in 2016. Current Functional Limitations: Requires assistance and assistive device with ambulation task performance with decreased safety of MRADL performance due to balance impairment Equipment Owned/DME: 4WW, shower chair Subjective: NT Objective: General Observation: NT Mental Status: NT Pain: NT ROM: Right Upper Extremity: Shoulder Flexion less than 50% of AROM. Shoulder abduct ion less than 50% of AROM. Elbow flexion WFL. Elbow extension WFL. Wrist flexion about 0-10. Wrist extension about 0-5. Patient able to partially extend fingers to neutral and has weak computing architect. Left Upper Extremity: Shoulder Flexion WFL. Shoulder abduction WFL. Elbow flexion WFL. Wrist flexion WFL. Functional opening and closing of hand WFL. Right Lower Extremity: Hip flexion WFL. Hip abduction WFL. Knee flexion WFL. Ankle dorsiflexion WFL. Ankle plantarflexion WFL. Left Lower Extremity: Hip flexion WFL. Hip abduction WFL. Knee flexion WFL. Ankle dorsiflexion WFL. Ankle plantarflexion WFL. Strength: Right Upper Extremity: Shoulder flexors 3-/5. Shoulder abductors 3-/5. Elbow flexors 3/5. Elbow extensors 3+/5. Wrist flexors 3-/5. Wrist extensors 3-/5. Fish Header weak. Left Upper Extremity: Shoulder flexors 4/5. Shoulder abductors 4/5. Elbow flexors 4/5. Elbow extensors 4/5. Fish Header strong. Right Lower Extremity: Hip flexors 4/5. Hip abductors 4/5. Knee flexors 4/5. Knee extensors 4/5. Ankle dorsiflexors 4/5. Ankle plantarflexors 4/5. Left Lower Extremity:Hip flexors 4/5. Hip abductors 4/5. Knee flexors 4/5. Knee extensors 4/5. Ankle dorsiflexors 4/5. Ankle plantarflexors 4/5. Bed Mobility/Transfers: Rolling I Supine to sit I Sit to supine I Sit to stand I Stand to sit I Bed to chair I Chair to bed I Gait: Patient is now independent for all level surface ambulation 150 feet WW with full weightbearing. Balance: Static Sitting: Good Dynamic Sitting: Good Static Standing: Fair Dynamic Standing: Fair 4-Stage Balance Test. Patient able to assume positions 1 and 2 safely for 10 se conds but not able to with tandem stance and one-legged stance. Assessment: Patient is a 33 Year old female referred to physical therapy services with previous recurrent meningioma resection now with diagnosis S/P meningioma resection of a large frontotemporal mass in the cavernous sinus on 07/20/2018. Patient presents with clinical signs and symptoms consistent with current/admitting diagnoses that have resulted to mobility limitations, gait instability, generalized weakness, and impairment of motor control as demonstrated by the following impairment level findings: 1. Decreased strength to B LE major muscle groups and R UE 2. Impaired standing balance 3. Impaired activity tolerance 4. Residual deficit in R shoulder, elbow, and wrist/hand from C6/C7 sarcoma in 2016 5. Decreased visual acuity due to CN III and IV affectation Impairments are contributing to the following functional limitations: 1. Increased completion time for bed mobility skills 2. Increased dependence with transfers 3. Inability to safely ambulate without assistive device and physical assistance 4. Increase completion time for mobility ADL performance 5. Increased fall risk 6. Inability to negotiate steps alone safely Goals: Goals X1 week 1. Sit-Stand independent MEt 2. Stand-Sit independent MET 3. Bed-Chair independent MET 4. Chair-Bed independent MET 5. Independent gait on level surface with use of least restrictive device for at least 300 feet without report of pain nor dyspnea NOT MET 6. Independent gait on paved surfaces outdoors for at least 200 feet without report of pain nor dyspnea NOT MET 6. Independent stair negotiation while holding onto bilateral rails for at least 5 steps without report of pain nor dyspnea NOT MET 7. Independent with home exercise program MET 8. Good static and dynamic standing balance/tolerance NOT MET DISCHARGE RECOMMENDATIONS: Will benefit from home health PT/OT services in order to progress to independent mobility performance without use of assistive device, assess home safety/adaptive equipment/DME needs, establish/implement a functional maintenance program for strengthening, facilitate reintegration to community. TREATMENT CODE/TIME: [place] Thank you very much for this referral. Myrna Kendrick, PT, DPT, CLT [facility]
== END 2018-08-09 17:44 | disposition home health service (06) | DRG 949 ==
PROVIDERS: Admitting Provider Internal Medicine; PCP Nurse Practitioner; Visit Provider Internal Medicine
DX: Z48.811 Encounter for surgical aftercare following surgery on the nervous system (principal); G82.50 Quadriplegia, unspecified; G40.802 Other epilepsy, not intractable, without status epilepticus; Z79.52 Long term (current) use of systemic steroids; R53.1 Weakness; D32.0 Benign neoplasm of cerebral meninges; H02.401 Unspecified ptosis of right eyelid; Z98.890 Other specified postprocedural states; Q85.02 Neurofibromatosis, type 2; Z85.831 Personal history of malignant neoplasm of soft tissue; E03.9 Hypothyroidism, unspecified; K21.9 Gastro-esophageal reflux disease without esophagitis
CPT/HCPCS: 36415; 80053; 97110; 97162; 97166; 97530; 97535; 99223; 99239; 99306; 99316; 83735; 84443; 85025; J8540

== ENCOUNTER 2018-10-09 18:39 | Observation (INO) | payer MEDICARE, MEDICAID, SELFPAY ==
[2018-10-09] VITALS (7 sets, daily range): BP systolic 102–111; BP diastolic 68–76; PULSE 76–93; RESP 12–20; TEMP 36.4–36.8; O2SAT 99–100
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
[2018-10-09] MEDS: CEFEPIME 2 GM in Normal Saline 100 ML IVPB (19:39)
[2018-10-09] MEDS: Normal Saline 1,000 ML 125 ML IV ×2 (19:39→23:57)
[2018-10-09 19:45] LABS: Abs Immature Grans 0.01 k/cumm (0.0-0.09); Absolute Basophil Count 0.01 k/cumm (0.0-0.2); Absolute Eosinophil Count 0.08 k/cumm (0.0-0.7); Absolute Lymphocyte Count 2.48 k/cumm (1.2-3.4); Absolute Monocyte Count 0.43 k/cumm (0.11-0.7); Absolute Neutrophil Count 5.05 k/cumm (1.2-6.7); Basophils % 0.1; HCT 32.8 % (36.0-46.0); HGB 10.4 g/dL (12.0-15.5); Immature Grans % 0.1; Lymphocytes % 30.8; Mean Corp. HGB Concentration 31.7 g/dL (32.0-36.0); Mean Corpuscular Hemoglobin 25.3 pg (27.0-33.0); Mean Corpuscular Volume 79.8 fL (80-95); Mean Platelet Volume 10.2 fL (8.0-11.0); Monocytes % 5.3; Neutrophils % 62.7; Platelet Count 244 x1000/uL (130-400); RBC 4.11 m/cumm (4.00-5.20); RBC Distribution Width 13.6 % (11.7-14.6); White Blood Cell Count 8.06 k/cumm (4.4-10.8)
[2018-10-09] MEDS: VANCOMYCIN 1,500 MG in Normal Saline 250 ML 166.6666 MG IVPB (20:22)
[2018-10-09 20:57] LABS: ALT 35 U/L (12-78); AST 25 U/L (15-37); Albumin 3.6 g/dL (3.4-5.0); Alkaline Phosphatase 115 U/L (46-116); BUN 17 mg/dL (7-18); Bilirubin, Total 0.3 mg/dL (0.2-1.0); CREATININE 0.68 mg/dL (0.55-1.02); Calcium 9.4 mg/dL (8.5-10.1); Chloride 103 mmol/L (98-107); Glucose 92 mg/dL (70-100); Potassium 3.5 mmol/L (3.5-5.1); Sodium 141 mmol/L (136-145); Total Protein 7.4 g/dL (6.4-8.2)
--- NOTE | 2018-10-09 21:00 | DI.CT_ITS ---
SYMPTOM/DIAGNOSIS: CELLULITIS NOSE, PRIOR RT CRANIOTOMY FACIAL CT: 10/09 CT examination of the craniofacial region was performed with intravenous infusion of 100 cc Omnipaque 350. Examination is compared with previous cranial MRI's including 05/15/18. The patient has multiple known enhancing intracranial lesions. There has been a prior right craniotomy, including probable interval craniotomy from 05/15/2018. Multiple enhancing lesions again noted including right occipital para falcine, posterior fossa, and at the skull base in the middle and frontal fossa invading the sella sphenoid sinus and orbital region on the right. Possible resection of this mass since the previous examination, fluid-filled space now present in right middle fossa which was not present on 05/15/18. No gross enhancement at this site to confirm an abscess. However, infected fluid collection not excluded in the clinical setting of suspected facial cellulitis. Correlation with MR examination of this area requested. Multi-focal bony deformity and erosion noted, this is difficult to compare with previous MR but appears to be associated with the longstanding tumor mass/masses. CONCLUSION: Post surgical vs infectious fluid collection in right middle fossa, additional evaluation with MR recommended. Small bifrontal extra axial fluid collections are noted which may be increased in size in comparison with the previous MRI as well.
[2018-10-09] MEDS: levETIRAcetam 500 MG TAB (21:29)
[2018-10-09] MEDS: Omnipaque 350 MG/ML 100 ML BTL IJ (21:29)
--- NOTE | 2018-10-09 22:04 | DI.VRAD_ITS ---
EXAM: CT Maxillofacial With Contrast EXAM DATE/TIME: 10/09/2018 9:02 PM CLINICAL HISTORY: 33 years old, female; Condition or disease; Prior surgery; Patient HX: Cellulitis nose, prior RT craniotomy; Additional info: Question deep space infection TECHNIQUE: Imaging protocol: Axial computed tomography images of the face with intravenous contrast. Coronal and sagittal reformatted images were created and reviewed. COMPARISON: MRI of the brain dated 05/15/2018. FINDINGS: Orbits: No acute intraorbital abnormality. Redemonstrated is lobulated soft tissue mass within the posterior right orbit, likely extension of intracranial mass as discussed.. Sinuses: There is lobulated soft tissue density within the right sphenoid sinus measuring 2.0 cm oblique AP by 1.1 cm oblique transverse by 2.0 cm oblique craniocaudad with suggestion of associated vascularity as well as erosive changes of the posterior and inferior sphenoid sinus. This appears to demonstrate transosseous spread with likely additional soft tissue mass involving the sella, medial aspect of the anterior temporal fossa, posterior right orbit, and the suprasellar cistern, similar to prior MRI. Bones/joints: Postsurgical changes of prior right frontal craniotomy. Brain: Small bifrontal extra-axial fluid collections, similar to mildly increased compared to MRI dated 05/15/2018. Note is made of 1.2 cm fat density mass within the superior posterior fossa, in the region of the anterior lobe of the cerebellum. There is enhancing, ovoid 3.5 cm mass along the anterior falx, favor meningioma. Smaller similar-appearing lesion noted within the anterolateral aspect of the right posterior fossa Soft tissues: Moderate pre-nasal subcutaneous edema. No subcutaneous emphysema or associated fluid collection. IMPRESSION: 1. Moderate pre-nasal subcutaneous edema. No subcutaneous emphysema or associated fluid collection. 2. Lobulated soft tissue mass within the right sphenoid sinus with suggestion of transosseous spread involving the sella, medial aspect of the anterior temporal fossa, posterior right orbit, and suprasellar cistern, similar to MRI dated 05/15/2018. 3. Small right greater than left curvilinear bifrontal extra-axial fluid collections, similar to mildly increased compared to prior MRI. 4. Enhancing extra-axial masses as above, similar to prior MRI. Dictated and Authenticated by: Isacc Villalpando MD. Ordering:PHILLIP Lozano MD
[2018-10-09] MEDS: diphenhydrAMINE 50 MG/ML VIAL (22:45)
[2018-10-10] VITALS (8 sets, daily range): BP systolic 95–114; BP diastolic 60–75; PULSE 78–91; RESP 16–18; TEMP 36.3–38.2; O2SAT 97–99
[2018-10-10] MEDS: Levothyroxine 88 MCG TAB PO (06:21)
[2018-10-10] MEDS: Normal Saline 1,000 ML 125 ML IV (06:37)
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
[2018-10-10 07:23] LABS: Abs Immature Grans 0.01 k/cumm (0.0-0.09); Absolute Basophil Count 0.01 k/cumm (0.0-0.2); Absolute Lymphocyte Count 1.74 k/cumm (1.2-3.4); Absolute Monocyte Count 0.42 k/cumm (0.11-0.7); Absolute Neutrophil Count 3.24 k/cumm (1.2-6.7); Basophils % 0.2; Eosinophils % 1.8; HCT 33.4 % (36.0-46.0); HGB 10.2 g/dL (12.0-15.5); Immature Grans % 0.2; Lymphocytes % 31.5; Mean Corp. HGB Concentration 30.5 g/dL (32.0-36.0); Mean Corpuscular Hemoglobin 24.4 pg (27.0-33.0); Mean Corpuscular Volume 79.9 fL (80-95); Mean Platelet Volume 10.2 fL (8.0-11.0); Monocytes % 7.6; Neutrophils % 58.7; Platelet Count 216 x1000/uL (130-400); RBC 4.18 m/cumm (4.00-5.20); RBC Distribution Width 13.7 % (11.7-14.6); White Blood Cell Count 5.52 k/cumm (4.4-10.8)
[2018-10-10 07:59] LABS: Anion Gap 8.4 mmol/L (3-11); BUN 13 mg/dL (7-18); CO2 25.6 mmol/L (21.0-32.0); CREATININE 0.67 mg/dL (0.55-1.02); Calcium 8.5 mg/dL (8.5-10.1); Chloride 110 mmol/L (98-107); Glucose 85 mg/dL (70-100); Potassium 3.8 mmol/L (3.5-5.1); Sodium 144 mmol/L (136-145); TSH (W/Ref FT4) 1.49 uIU/mL (0.358-3.74)
[2018-10-10] MEDS: Acetaminophen 325 MG TAB PO (08:10)
[2018-10-10] MEDS: levETIRAcetam 500 MG TAB PO ×2 (08:10→19:45)
[2018-10-10] MEDS: Omeprazole 20 MG CAPCR PO (08:10)
[2018-10-10] MEDS: Sertraline 50 MG TAB PO (08:10)
--- NOTE | 2018-10-10 09:32 | PDOC.CMIN ---
Care Management Initial Assess REASON FOR HOSPITALIZATION:: facial cellulitis PAST MEDICAL HISTORY/PAST SURGICAL HISTORY:: Medical: disability due to neurological disorder, vision loss R eye, meningioma-recurrent of brain, neurofibromatosis II, H/O sarcoma, asthma, quadriparesis (muscle wealness), seizure disorder, hypothyroidism, GERD, erysipelas (acute), benign schwannoma. Surgical: s/p craniotomy PREVIOUS FUNCTIONAL STATUS/SOCIAL/FAMILY SUPPORTS:: She is 33 yo woman who lives alone in an apt at the [facility] in [place]. Her primary family support is her mother Margie Barnett. She is and has complex medical history. At baseline she is able to live independently with support services and a handicap apartment. She is a high school graduate who attended [employer] for training in medical coding and billing. Has services from [facility]. CURRENT FUNCTIONAL STATUS:: She is sitting up in bed when CM enters. She easily engages in discussion re plans. ADVANCE DIRECTIVES:: Document is not on file, but she states her mother is her agent. Requested she bring copy for hospital records in future. Has patient been provided with information about the portal?: Yes Did the patient sign up for the portal?: No INSURANCE COVERAGE / FINANCIAL ISSUES:: Medicare CURRENT HOME/COMMUNITY SERVICES/EQUIPMENT:: She no longer has HH services, but does have [facility] assistance who are helping her to reapply for LTC Medicaid, which she was initially denied for financial reasons. She uses [facility] for transport when family or friends/[employer] unable to take her. She just recently started OP PT. She is receptive to HH services if recommended. She has handicap apt with grab bars, tub seat, HH shower, and she has wheeled walker. PRIMARY CARE PHYSICIAN:: Anupama Joya NP POTENTIAL DISCHARGE NEEDS:: Receptive to HH services if needed, but otherwise, will need follow-up with PCP as directed. PATIENT/FAMILY EDUCATION NEEDS:: Review d/c instructions re meds and activity levels. Review Ask me Now questions to assure patient understanding of reason for hospitalization. ANTICIPATED BARRIERS TO DISCHARGE:: none anticipated TRANSPORTATION:: via car with her mother or a friend PLAN:: d/c home as per MD with referral to HH if indicated. Planned follow-up with PCP as directed.
[2018-10-10] MEDS: Potassium Chloride 20 MEQ TABCR PO (09:37)
[2018-10-10] MEDS: Magnesium Oxide 400 MG TAB PO (09:37)
[2018-10-10] MEDS: CEFEPIME 2 GM in Normal Saline 100 ML IVPB (09:56)
--- NOTE | 2018-10-10 12:24 | INITIAL_ITS ---
Care Management Initial Assess REASON FOR HOSPITALIZATION:: facial cellulitis PAST MEDICAL HISTORY/PAST SURGICAL HISTORY:: Medical: disability due to neurological disorder, vision loss R eye, meningioma-recurrent of brain, neurofibromatosis II, H/O sarcoma, asthma, quadriparesis (muscle wealness), seizure disorder, hypothyroidism, GERD, erysipelas (acute), benign schwannoma. Surgical: s/p craniotomy PREVIOUS FUNCTIONAL STATUS/SOCIAL/FAMILY SUPPORTS:: She is 33 yo woman who lives alone in an apt at the [facility] in [place]. Her primary family support is her mother Margie Barnett. She is and has complex medical history. At baseline she is able to live independently with support services and a handicap apartment. She is a high school graduate who attended [employer] for training in medical coding and billing. Has services from [facility]. CURRENT FUNCTIONAL STATUS:: She is sitting up in bed when CM enters. She easily engages in discussion re plans. ADVANCE DIRECTIVES:: Document is not on file, but she states her mother is her agent. Requested she bring copy for hospital records in future. Has patient been provided with information about the portal?: Yes Did the patient sign up for the portal?: No INSURANCE COVERAGE / FINANCIAL ISSUES:: Medicare CURRENT HOME/COMMUNITY SERVICES/EQUIPMENT:: She no longer has HH services, but does have [facility] assistance who are helping her to reapply for LTC Medicaid, which she was initially denied for financial reasons. She uses [facility] for transport when family or friends/[employer] unable to take her. She just recently started OP PT. She is receptive to HH services if recommended. She has handicap apt with grab bars, tub seat, HH shower, and she has wheeled walker. PRIMARY CARE PHYSICIAN:: Anupama Joya NP POTENTIAL DISCHARGE NEEDS:: Receptive to HH services if needed, but otherwise, will need follow-up with PCP as directed. PATIENT/FAMILY EDUCATION NEEDS:: Review d/c instructions re meds and activity levels. Review Ask me Now questions to assure patient understanding of reason for hospitalization. ANTICIPATED BARRIERS TO DISCHARGE:: none anticipated TRANSPORTATION:: via car with her mother or a friend PLAN:: d/c home as per MD with referral to HH if indicated. Planned follow-up with PCP as directed.
--- NOTE | 2018-10-10 13:19 | W.SPEECHEVAL ---
Speech Therapy Evaluation Note: Document created in error.
--- NOTE | 2018-10-10 14:11 | PHARADMIT ---
Admission Pharmacy Clinical Review Code Status Full Code Current Weight 54.2 kg Renally Cleared and Narrow Therapeutic Index Meds ~85.58, meds ok QTc Value / Action Taken n/a BP Control, Fever BP 114/60, Afebrile Electrolytes reviewed All WNL DVT Prophylaxis None Opiate Usage / Scheduled Bowel Regimen Ordered None Plt/SCr for Heparin / Enoxaparin n/a INR for Warfarinn n/a H/H stable, WBC/Bands H/H 33.4/10.2, WBC 5.52 Antibiotic appropriateness IV Cefepime and Dapto changed to PO Augmentin and Bactrim due to loss of IV access Cultures and Sensitivities Skin culture - no growth 24 hrs; blood cultures pending Surgical ABX d/c within 24 hr n/a DM control / Insulin Dosing n/a Heart Failure (Check EF%) (GLO's, B-Block, Diuretics) None IV to PO Switch Yes (loss of IV access) Home Meds Reviewed Yes - take l-thyrozine on empty stomach Home Meds Not Ordered Multivitamin Comments Admitted for facial cellulitis -- Symptoms rapidly improved after initial doses of Cefepime and Daptomycin (had rxn to vanco that was given in the ED), lost IV access and changed abx to PO, waiting for blood cultures
--- NOTE | 2018-10-10 14:58 | PGE_ITS ---
Date of Service Date of service: 10/10/18 Time of Service: 14:51 Assessment and Plan (1) Facial cellulitis: Current visit: Yes Status: Acute Significant and rapid improvement in symptoms - no evidence of orbital cellulitis. Was initially maintained on Daptomycin and Cefepime, but has lost IV Access. Will change to oral regimen consisting of Bactrim and Augmentin, and monitor symptoms closely. Check Blood Cultures, and monitor vitals. (2) Meningioma, recurrent of brain: Current visit: No Status: Chronic History of recurrent Meningioma of the brain, s/p prior resection in 2015. Underwent an elective resection/debulking on 07/20 due to compression of the brainstem. Follows chronically with Neurosurgery. CT performed in the ED showed a fluid collection in the right middle fossa, uncertain whether this would represent post-surgical vs. infectious findings. Plan is to obtain an MRI of the brain, and request CT of the head from last month at [facility] to directly compare to current imaging (as per discussion with radiology). 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 Patient is s/p surgical resection in 2003, Chemo/XRT, with residual Right hand weakness. (4) Quadriparesis (muscle weakness): Current visit: No Status: Chronic Noted (5) Seizure disorder: Current visit: No Status: Chronic Continue Keppra. (6) Hypothyroidism: Current visit: No Status: Chronic Continue replacement therapy. TSH checked at admission and normal. (7) GERD (gastroesophageal reflux disease): Current visit: No Status: Chronic On PPI therapy. (8) DVT prophylaxis: Current visit: No Status: Acute SCD's, DIANNA's. Subjective Interval history since last seen: 33 year old woman with a prior history of recurrent Meningiomas of the brain, admitted from [facility] Emergency Department on 10/09 with a diagnosis of Facial Cellulitis. Ms. 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 Her other history includes GERD, Hypothyroidism, Asthma, as well as noted Seizure Disorder (in setting of intracranial masses). She was last admitted at [facility] under Swing Bed status for continuation of inpatient Physical and Occupational therapy following her last surgery in July. The patient had a small wound formed in her right nares following placement of NGT back in July, at the site where this tube was sutured into her nares. She states that the area never fully healed, and approximately 2-3 days prior she noted a crusted and honey colored discharge from her right nares. As her wound did not respond to topical therapy, and surrounding erythema worsened she presented to the ED and was diagnosed with facial cellulitis. She was initially given vancomycin, discontinued due to development of severe itching, then referred for admission for further evaluation and treatment. By early this morning Ms. Baugh reports significant improvement in her symptoms, and by this afternoon the findings have significantly improved. No overnight events reported. She had a one time occurance of a fever early this morning, but has otherwise been afebrile. Exam Narrative Exam Narrative: General: Patient appears comfortable, AAOX3, NAD HEENT: Right eye closed and unchanged from prior. Bandages found on her head. Right nares, anterior nose, small area on right cheek with erythema and warmth, significantly shrinking from demarcated line. Neck: Supple CV: Regular, nontachycardic, S1S2, No rubs, murmurs, or gallops. Pulmonary: Clear to auscultation bilaterally, no crackles, wheezing, or rhonchi Abdomen: + Bowel Sounds, soft, nontender, nondistended Vascular: No lower extremity edema Neurologic: No focal deficits. Psych: Normal mood and affect. Objective Objective Clinical Data: Abnormal lab results 10/09/18 10/10/18 10/10/18 Range/Units 19:36 06:45 06:45 Hgb 10.4 L 10.2 L (12.0-15.5) g/dL Hct 32.8 L 33.4 L (36.0-46.0) % MCV 79.8 L 79.9 L (80-95) fL MCH 25.3 L 24.4 L (27.0-33.0) pg MCHC 31.7 L 30.5 L (32.0-36.0) g/dL Chloride 110 H (98-107) mmol/L Vital Signs Temperature 37.2 C 10/10/18 11:10 Temperature Source Tympanic 10/10/18 11:10 Pulse 81 10/10/18 11:10 Pulse Rhythm Regular 10/10/18 12:03 Pulse 87 10/09/18 22:40 Respiratory Rate 16 10/10/18 11:10 Respiratory Effort Non-Labored 10/10/18 12:03 Respiratory Depth Normal 10/10/18 12:03 Respiratory Pattern Normal 10/10/18 12:03 Blood Pressure 114/60 10/10/18 11:10 Blood Pressure Position Sitting 10/09/18 18:47 Pulse Oximetry 98 10/10/18 11:10 Oxygen Delivery Method Room Air 10/10/18 11:10 Oxygen Flow Rate 0 10/10/18 11:10 Pain Level 0 10/10/18 11:10 Comment 10/10/18 03:55 Intake & Output 10/09/18 10/10/18 10/10/18 23:59 11:59 23:59 Intake Total 897.5 / 897.5 1637.500 / 1757.500 120 / 1757.500 Output Total 850 / 1150 300 / 1150 Balance 897.5 / 897.5 787.500 / 607.500 -180 / 607.500 Weight 54.4 kg 54.2 kg Intake: IV 897.5 / 897.5 1537.500 / 1537.500 Oral 100 / 220 120 / 220 Output: Urine 850 / 1150 300 / 1150 Other: Urine Color Yellow Yellow Urine Appearance Clear Comment pt missed hat. pt missed hat Voiding Methods Toilet Toilet Toilet Laboratory Results WBC 5.52 k/cumm (4.4-10.8) D 10/10/18 06:45 RBC 4.18 m/cumm (4.00-5.20) 10/10/18 06:45 Hgb 10.2 g/dL (12.0-15.5) L 10/10/18 06:45 Hct 33.4 % (36.0-46.0) L 10/10/18 06:45 MCV 79.9 fL (80-95) L 10/10/18 06:45 MCH 24.4 pg (27.0-33.0) L 10/10/18 06:45 MCHC 30.5 g/dL (32.0-36.0) L 10/10/18 06:45 RDW 13.7 % (11.7-14.6) 10/10/18 06:45 Plt Count 216 x1000/uL (130-400) 10/10/18 06:45 MPV 10.2 fL (8.0-11.0) 10/10/18 06:45 Immature Gran % 0.2 10/10/18 06:45 Neutrophils % 58.7 10/10/18 06:45 Lymphocytes % 31.5 10/10/18 06:45 Monocytes % 7.6 10/10/18 06:45 Eosinophils % 1.8 10/10/18 06:45 Basophils % 0.2 10/10/18 06:45 Absolute Neutrophils 3.24 k/cumm (1.2-6.7) 10/10/18 06:45 Absolute Lymphocytes 1.74 k/cumm (1.2-3.4) 10/10/18 06:45 Absolute Monocytes 0.42 k/cumm (0.11-0.7) 10/10/18 06:45 Absolute Eosinophils 0.10 k/cumm (0.0-0.7) 10/10/18 06:45 Absolute Basophils 0.01 k/cumm (0.0-0.2) 10/10/18 06:45 Sodium 144 mmol/L (136-145) 10/10/18 06:45 Potassium 3.8 mmol/L (3.5-5.1) 10/10/18 06:45 Chloride 110 mmol/L (98-107) H 10/10/18 06:45 Carbon Dioxide 25.6 mmol/L (21.0-32.0) 10/10/18 06:45 Anion Gap 8.4 mmol/L (3-11) 10/10/18 06:45 BUN 13 mg/dL (7-18) 10/10/18 06:45 Creatinine 0.67 mg/dL (0.55-1.02) 10/10/18 06:45 Estimated GFR/1.73 m2 >= 60.00 (mL/min/1.73m2) 10/10/18 06:45 Glucose 85 mg/dL (70-100) 10/10/18 06:45 Calcium 8.5 mg/dL (8.5-10.1) 10/10/18 06:45 Total Bilirubin 0.3 mg/dL (0.2-1.0) 10/09/18 19:36 AST 25 U/L (15-37) 10/09/18 19:36 ALT 35 U/L (12-78) 10/09/18 19:36 Alkaline Phosphatase 115 U/L (46-116) 10/09/18 19:36 Total Protein 7.4 g/dL (6.4-8.2) 10/09/18 19:36 Albumin 3.6 g/dL (3.4-5.0) 10/09/18 19:36 TSH 1.49 uIU/mL (0.358-3.74) 10/10/18 06:45
[2018-10-10] MEDS: Amoxicillin 875/Clav. 125 TAB PO (19:45)
[2018-10-10] MEDS: Sulfameth/Trimeth DS TAB 1 TAB PO (19:45)
[2018-10-10] MEDS: Melatonin 3 MG TAB PO (21:23)
[2018-10-11 00:19] VITALS: BP 103/71
[2018-10-11 03:26] VITALS: BP 108/77; PULSE 73; RESP 18; TEMP 36.4; O2SAT 99
[2018-10-11] MEDS: Levothyroxine 88 MCG TAB PO (06:06)
[2018-10-11] MEDS: Acetaminophen 325 MG TAB PO (06:15)
[2018-10-11 07:05] VITALS: BP 110/75; PULSE 74; RESP 16; TEMP 37; O2SAT 98
[2018-10-11] MEDS: Sulfameth/Trimeth DS TAB 1 TAB PO (09:46)
[2018-10-11] MEDS: levETIRAcetam 500 MG TAB PO (09:46)
[2018-10-11] MEDS: Sertraline 50 MG TAB PO (09:47)
[2018-10-11] MEDS: Omeprazole 20 MG CAPCR PO (09:47)
[2018-10-11] MEDS: Amoxicillin 875/Clav. 125 TAB PO (09:47)
[2018-10-11 09:50] VITALS: O2SAT 98
[2018-10-11 11:10] VITALS: BP 104/69; PULSE 76; RESP 16; TEMP 36.1; O2SAT 100
--- NOTE | 2018-10-11 12:24 | PDOC.CMDIS ---
- If Service Date Differs Date of service: 10/11/18 Time of Service: 12:24 LACE Index Scoring Tool - Questions: Length of Stay (in days): 3 Acuity (Admit via E.D.?): Yes Comorbidities: Any Tumor E.D. Visits: 1 - Answers: Total Score: 9 Risk of Readmission: Low Risk Care Management Discharge Reason for Hospitalization: facial cellulitis Discharge Plan: Katherine will be discharged home today.She will be discharged on oral antibioitcs and follow up with primary care. CM contacted Sean and confirmed the copay of 51.00 which she states she is able to afford. She will resume sevice through [facility], Subsidized housing at [facility] and [facility] services. She will also resume PT and OT services as outpatient. She will transported home via [facility] at time of discharge. Patient/Family Education Needs: Discharged education, follow up plan of care and ask me three. Services Needed at Discharge: Home Delivered Meals, Outpatient Therapy, Physical Therapy, Transportation
--- NOTE | 2018-10-11 12:31 | CMDISCH_ITS ---
- If Service Date Differs Date of service: 10/11/18 Time of Service: 12:24 LACE Index Scoring Tool - Questions: Length of Stay (in days): 3 Acuity (Admit via E.D.?): Yes Comorbidities: Any Tumor E.D. Visits: 1 - Answers: Total Score: 9 Risk of Readmission: Low Risk Care Management Discharge Reason for Hospitalization: facial cellulitis Discharge Plan: Katherine will be discharged home today.She will be discharged on oral antibioitcs and follow up with primary care. CM contacted Sean and confirmed the copay of 51.00 which she states she is able to afford. She will resume sevice through [facility], Subsidized housing at [facility] and [facility] services. She will also resume PT and OT services as outpatient. She will transported home via [facility] at time of discharge. Patient/Family Education Needs: Discharged education, follow up plan of care and ask me three. Services Needed at Discharge: Home Delivered Meals, Outpatient Therapy, Physical Therapy, Transportation
[2018-10-11] MEDS: Normal Saline Flush 10 ML SYR IVP (12:42)
[2018-10-11] MEDS: Gadoterate meglumine 20 ML VIAL 10 ML IVP (12:43)
--- NOTE | 2018-10-11 13:06 | DI.MRI_ITS ---
SYMPTOMS/DIAGNOSIS: ABNORMAL CT OF THE HEAD, H/O SEIZURE, H/O BRAIN SURGERY BRAIN MRI: MRI examination of the brain was performed according to the usual protocol. Additional post contrast axial and coronal T1 weighted imaging was obtained. Today's examination is compared with the previous cranial CT of 09/05/2018 from [facility] as well as MRI from [facility] of July 20 and July 21. The patient has had reported resection of a large, predominantly middle fossa meningioma in a patient with multiple known intracranial meningiomas. On today's examination, there is a subdural fluid collection on the right, which measures about 8 mm in thickness. This appears to be grossly unchanged from previous CT of 09/05/2018. Right lateral ventricle is mildly dilated in the temporal horn only, but this is not a new finding and there is no evidence of ventricular obstruction. No new enhancing mass identified in the right middle fossa. The large multilobulated enhancing mass previously noted in middle fossa orbit and cavernous sinus region extending into sphenoid sinus is significantly decreased in comparison with the previous MR of 07/20/2018. No significant interval change in appearance of occipital meningioma and additional meningiomas in posterior fossa on the right and midline frontal, as well as left sylvian fissure meningioma. Previously noted posterior meningioma at the level of the ricky is again seen and grossly unchanged. The right-sided pontine deformity anteriorly from the resected meningioma has effectively resolved since the previous examination. Diffusion weighted imaging shows no evidence of acute infarction. No gross enhancement to suggest the presence of encephalitis or meningitis. CONCLUSION: 1. An 8 mm right, predominantly frontal subdural fluid collection, grossly unchanged from previous examination. 2. Interval partial resection of large skull base meningioma with ex vacuo phenomenon of temporal horn of right lateral ventricle. 3. No evidence of encephalitis or abscess. Please see above discussion for additional details.
--- NOTE | 2018-10-11 14:22 | CHAPLAIN ---
Katherine was sitting up in bed playing games on her phone when I visited. She was waiting to have her MRI done within the next 45 minutes, and she told me she is a pro at MRIs and can usually fall asleep. She sounded very upbeat and prepared for the MRI.
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
[2018-10-11 16:40] VITALS: BP 104/69; PULSE 76; RESP 16; TEMP 36.1; O2SAT 100
== END 2018-10-11 16:44 | disposition home or self-care (01) ==
LOC: ER 18:49 → MS 23:20
PROVIDERS: Admitting Provider Family Medicine; Emergency Provider Student in an Organized Health Care Education/Training Program; PCP Nurse Practitioner; Visit Provider Internal Medicine
DX: L03.211 Cellulitis of face (principal); D32.0 Benign neoplasm of cerebral meninges; Z85.831 Personal history of malignant neoplasm of soft tissue; M62.81 Muscle weakness (generalized); G40.909 Epilepsy, unspecified, not intractable, without status epilepticus; L29.9 Pruritus, unspecified; T36.8X5A Adverse effect of other systemic antibiotics, initial encounter; B95.61 Methicillin susceptible Staphylococcus aureus infection as the cause of diseases classified elsewhere
CPT/HCPCS: 36410; 36415; 70553; 80048; 80053; 87040; 87077; 96361; 96365; 96366; 96367; 99217; 99219; 99233; 99285; 70487; 84443; 85025; 87070; 87186; 99284; G0378; J0878; J1200; J3490

== ENCOUNTER 2018-10-20 11:12 | Outpatient (CLI) | payer MEDICARE, SELFPAY ==
[2018-10-20 13:11] LABS: Iron 31 ug/dL (50-175); Total Iron Binding Capacity 346 ug/dL (250-450); Transferrin Sat 9 % (15-50)
[2018-10-20 14:12] LABS: Vitamin B12 771 pg/mL (193-986)
[2018-10-20 14:31] LABS: Folate > 20.0 ng/mL (8.6-20.0)
== END 2018-10-20 11:32 ==
PROVIDERS: PCP Nurse Practitioner; Visit Provider Nurse Practitioner
DX: D64.9 Anemia, unspecified (principal)
CPT/HCPCS: 36415; 82607; 82746; 83540; 83550

== ENCOUNTER 2018-11-07 12:02 | Observation (INO) | payer MEDICARE, MEDICAID, SELFPAY ==
[2018-11-07] VITALS (37 sets, daily range): BP systolic 41–122; BP diastolic 21–86; PULSE 67–132; RESP 16–23; TEMP 36.6–36.8; O2SAT 78–100
--- NOTE | 2018-11-07 12:06 | NUR.NOTE ---
Nursing Note: pt was ambulating with walker and the break malfunctioned causing her to fall. pt complains of pain of 9/10 pain left hip/groin as well a 6/10 back pain thoracic area
--- NOTE | 2018-11-07 12:46 | DI.RAD_ITS ---
SYMPTOMS/DIAGNOSIS: TRAUMA, THORACIC SPINE PAIN AT T8, LEFT HIP PAIN, LEFT RIB PAIN THORACIC SPINE: There is a mid levoscoliosis. There is no evidence of fracture. The disc spaces are well maintained. IMPRESSION: Scoliosis. No acute abnormality. PA AND LATERAL CHEST AND LEFT RIBS: There are no prior comparison exams. There is a pectus excavatum deformity. The heart size is normal. There is elevation of the right diaphragm. There are emphysematous changes of the right lung. Three views of the left ribs were performed. No rib fractures are seen. There is no evidence of pneumothorax. The left shoulder, as well as sternum, appears intact. IMPRESSION: Elevation of the right diaphragm and emphysematous changes of the right lung. No acute abnormality. PELVIS AND LEFT HIP: There is discontinuity of the left inferior pubic ramus, suspicious for an acute fracture. The proximal femur, as well as left hip joint, appears intact. The sacrum is partially obscured by overlying bowel gas. There is no SI joint widening. IMPRESSION: Question of a fracture of the left inferior pubic ramus.
[2018-11-07] MEDS: Ibuprofen 400 MG TAB PO (14:32)
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
--- NOTE | 2018-11-07 16:52 | IN_ITS ---
Date of service: 11/07/18 Time of Service: 15:39 PT Notes Inpatient Physical Therapy Evaluation Date: 11/07/2018 Referring Doctor: Adriane Pickard MD PT Orders: PT CONSULT: Trial ambulation with walker. Precautions: Fall. Standard. 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 Patient was sent to the ED today via EMS and was diagnosed with a pelvic fracture sustained from a mechanical fall on her way to the dining room area of her apartment building for lunch. Referral was sent this afternoon for a trial ambulation using a front-wheeled walker. PMHX: Medical History Meningioma, recurrent of brain (Chronic) Neurofibromatosis II (Chronic) History of sarcoma (Chronic) Asthma (Chronic) Quadriparesis (muscle weakness) (Chronic) Seizure disorder (Chronic) Hypothyroidism (Chronic) GERD (gastroesophageal reflux disease) (Chronic) Surgical History S/P craniotomy (Chronic) Social History/Home Situation: Katherine lives alone on the fourth floor of an apartment building in [place], [place] with both ramp and 5 steps to enter. She spends weekends at her mother's house where there are 4 steps to enter. Patient states she has a shower chair and owns a 4WW which she says she has used since 2016. Patient has gone to outpatient physical therapy services twice a week for mobility progression as well as balance and strengthening skilling. She states that she goes down to the first floor of the apartment building where she gets lunch through [employer]. Current Functional Limitations: Requires assistance and assistive device with ambulation task performance with decreased safety of MRADL performance due to balance impairment Equipment Owned/DME: 4WW, shower chair Subjective: Patient states that the fall this morning was purely accidental and that except for today's unfortunate event, she has not fallen for the past year or so. She is hoping that she can go back home today and continue her outpatient physical therapy services. She states that she has been doing so good with her outpatient physical therapy. Objective: General Observation: Patient seen resting in ICU bed. Wound dressing to right frontoparietal area. Craniotomy incision well-healed. R hand with residual claw deformity from cervical sarcoma. Mental Status: Alert and oriented x4 Pain: 2/10 at rest, 9/10 with ambulation activity and with weight bearing ROM: Right Upper Extremity: Shoulder Flexion less than 50% of AROM. Shoulder abduction less than 50% of AROM. Elbow flexion WFL. Elbow extension WFL. Wrist flexion about 0-10. Wrist extension about 0-5. 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 Left Upper Extremity: Shoulder Flexion WFL. Shoulder abduction WFL. Elbow flexion WFL. Wrist flexion WFL. Functional opening and closing of hand WFL. Right Lower Extremity: Hip flexion WFL. Hip abduction WFL. Knee flexion WFL. Ankle dorsiflexion WFL. Ankle plantarflexion WFL. Left Lower Extremity: Hip flexion WFL. Hip abduction WFL. Knee flexion WFL. Ankle dorsiflexion WFL. Ankle plantarflexion WFL. Strength: Right Upper Extremity: Shoulder flexors 3-/5. Shoulder abductors 3-/5. Elbow flexors 3/5. Elbow extensors 3+/5. Wrist flexors 3-/5. Wrist extensors 3-/5. Event Marketing Intern weak. Left Upper Extremity: Shoulder flexors 4/5. Shoulder abductors 4/5. Elbow flexors 4/5. Elbow extensors 4/5. Event Marketing Intern strong. Right Lower Extremity: Hip flexors 4/5. Hip abductors 4/5. Knee flexors 4/5. Knee extensors 4/5. Ankle dorsiflexors 4/5. Ankle plantarflexors 4/5. Left Lower Extremity:Hip flexors 4/5. Hip abductors 4/5. Knee flexors 4/5. Knee extensors 4/5. Ankle dorsiflexors 4/5. Ankle plantarflexors 4/5. Bed Mobility/Transfers: Rolling I Supine to sit I Sit to supine I Sit to stand Supervision Stand to sit Supervision Bed to chair Supervision Chair to bed Supervision Gait: Patient tolerated level surface ambulation about 50 feet using FWW with SBA, minimal verbal cues for directions and walker management. Step height and length reduced. Gait velocity reduced due to decreased visual acuity. Reported no dizziness, no headache nor chest pain. Pain level went up to 8-9/10 which subsided with rest. Balance: Static Sitting: Good Dynamic Sitting: Good Static Standing: Fair Dynamic Standing: Fair Special Tests: Mobility Limitations Standardized Measure [facility] AM-PAC 6 clicks Basic Mobility Inpatient Short Form: Raw Score: 20 CMS Score: 36% deficit Informed Consent/Education: Patient instructed in purpose of PT consult and plan of care. Patient was advised that due to her intensity of pain report with weight bearing, stability level is currently compromised. The use of a front wheeled walker therefore provides more stability than her current 4 wheeled walker. Patient is agreeable to go home with a front wheeled walker with plan to progress back to the use of her 4 wheeled walker [facility]. Case management was made aware of patient's agreement with the plan. Assessment: Patient is a 33 Year old female with previous meningioma resections status post fall today resulting to a pelvic fracture. Patient presents with clinical signs and symptoms consistent with current/admitting diagnoses that have resulted to mobility limitations, gait instability, generalized weakness, and impairment of motor control as demonstrated by the following impairment level findings: 1. Decreased strength to B LE major muscle groups and R UE 2. Impaired standing balance 3. Impaired activity tolerance 4. Residual deficit in R shoulder, elbow, and wrist/hand from C6/C7 sarcoma in 2016 5. Decreased visual acuity due to CN III and IV affectation Impairments are contributing to the following functional limitations: 1. Inability to safely ambulate without assistive device 2. Increase completion time for mobility ADL performance 3. Increased fall risk Patient is assessed as a Moderate [id number] complexity based on the following: History: Right-handed female patient who lives alone with Neurofibromatosis Type II affeccted with residual R UE hemiparesis from C6/C7 cervical spine sarcoma in 2016 S/P previous resections for recurrent meningioma now presenting with pelvic fracture Examination: Underlying impairments and functional limitations as noted above normal Presentation: Evolving Decision Makin Moderate complexity DISCHARGE RECOMMENDATIONS: Will benefit from home health PT/OT services in order to progress to independent mobility performance without use of assistive device, assess home safety/adaptive equipment/DME needs, establish/implement a functional maintenance program for strengthening, facilitate reintegration to community. TREATMENT CODE/TIME: 79260 for 35 minutes beginning at 15:39 PM. Thank you very much for this referral. Myrna Kendrick, PT, DPT, CLT [facility]
--- NOTE | 2018-11-07 17:52 | NUR.NOTE ---
Nursing Note: 87 not correct BP
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
[2018-11-07] MEDS: Acetaminophen 325 MG TAB 650 MG PO (19:42)
[2018-11-07] MEDS: levETIRAcetam 500 MG TAB PO (19:43)
--- NOTE | 2018-11-07 19:58 | NUR.NOTE ---
Nursing Note: BP of 40 systolic is not an accurate BP. Charted incorrectly along with elevated heart rate 125-127bpm.
[2018-11-07] MEDS: Melatonin 3 MG TAB PO (21:29)
[2018-11-08 00:33] VITALS: BP 98/66; PULSE 78; RESP 17; TEMP 36.1; O2SAT 98
[2018-11-08] MEDS: Ibuprofen 200 MG TAB PO ×2 (06:16→14:01)
[2018-11-08] MEDS: Levothyroxine 88 MCG TAB PO (06:16)
[2018-11-08 07:33] VITALS: BP 99/63; PULSE 72; RESP 18; TEMP 36.3; O2SAT 95
--- NOTE | 2018-11-08 08:10 | PHARADMIT ---
Admission Pharmacy Clinical Review PUBIC RAMIS FRACTURE Code Status Full Code Current Weight Wgt-54.6 kg Renally Cleared and Narrow Therapeutic Index Meds CrCl~ 86.3 mL/min Meds-OK QTc Value / Action Taken NA BP Control, Fever BP-99/63 Tmax-36.6C Electrolytes reviewed na DVT Prophylaxis None Opiate Usage / Scheduled Bowel Regimen Ordered Yes No Plt/SCr for Heparin / Enoxaparin none INR for Warfarin nsa H/H stable, WBC/Bands none Antibiotic appropriateness none Cultures and Sensitivities none Surgical ABX d/c within 24 hr na DM control / Insulin Dosing na Heart Failure (Check EF%) (GLO's, B-Block, Diuretics) none IV to PO Switch No Home Meds Reviewed Yes Home Meds Not Ordered Bactrim, Augmentin Comments
[2018-11-08] MEDS: Omeprazole 20 MG CAPCR PO (08:20)
[2018-11-08] MEDS: levETIRAcetam 500 MG TAB PO ×2 (08:21→19:59)
[2018-11-08] MEDS: Sertraline 50 MG TAB PO (08:21)
[2018-11-08] MEDS: Acetaminophen 325 MG TAB 650 MG PO ×3 (08:23→17:51)
[2018-11-08] MEDS: Multivitamin w/Minerals TAB 1 TAB PO (10:08)
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
--- NOTE | 2018-11-08 14:24 | PGE_ITS ---
Date of Service Date of service: 11/08/18 Time of Service: 14:24 Assessment and Plan (1) Pelvic fracture: Current visit: Yes Status: Acute Inoperable left pubic ramus fracture. Her pain is fairly well controlled with ibuprofen and APAP (per her request). Colace scheduled TID. Consider adding low dose tramadol if pain is not controlled when out of bed. PT recommends front-wheeled walker until she is more stable. Care management is working on getting her a front wheeled walker. She will need home PT/OT at time of discharge. Continue PT for mobilization and safe walker use. (2) Seizure disorder: Current visit: No Status: Chronic Continue Keppra per catracho edose. (3) Hypothyroidism: Current visit: No Status: Chronic Continue Levothyroxine per home dose. (4) GERD (gastroesophageal reflux disease): Current visit: No Status: Chronic Continue omeprazole. (5) DVT prophylaxis: Current visit: No Status: Acute Subcutaneous lovenox. (6) Discharge planning issues: Current visit: No Status: Acute She is a FULL CODE. She will need home health PT/OT/WHITE SUGAR BOILER at time of discharge. This case was discussed with Dr. Lao who is in agreement. Subjective Interval history since last seen: Katherine Baugh reports that her pain is well controlled at rest with ibuprofen and acetaminophen. She has been out of bed using the front-wheeled walker. She has not worked with PT yet today. She had a bowel movement which was very uncomfortable. She denies shortness of breath, coughing or wheezing, chest pain/pressure, palpitations. She is eating and drinking and tolerating her diet. She denies abdominal pain, nausea, or vomiting. Care management is working on getting a front-wheeled walker for her prior to her discharge home. Exam Narrative Exam Narrative: General: young female, sitting up in bed, answers questions appropriately, in NAD. Alert and oriented. HEENT: has dressings to scalp from previous surgery, right eye ptosis, extra ocular movements intact to left eye. mucous membranes moist. Neck: supple, no JVD. Cardiovascular: heart has regular rate and rhythm, nontachycardic, no murmur. Respiratory: respirations even and unlabored. Lungs clear bilaterally. Extremities: Objective Objective Clinical Data: Vital Signs Temperature 36.3 C L 11/08/18 07:33 Temperature Source Tympanic 11/08/18 07:33 Pulse 72 11/08/18 07:33 Pulse Rhythm Regular 11/08/18 08:27 Pulse 126 H 11/07/18 19:45 Respiratory Rate 18 11/08/18 07:33 Respiratory Effort Non-Labored 11/08/18 08:27 Respiratory Depth Normal 11/08/18 08:27 Respiratory Pattern Normal 11/08/18 08:27 Blood Pressure 99/63 L 11/08/18 07:33 Blood Pressure Mean 82 11/07/18 19:45 Blood Pressure Position Sitting 11/07/18 12:07 Pulse Oximetry 95 11/08/18 07:33 Oxygen Delivery Method Room Air 11/08/18 07:33 Oxygen Flow Rate 0 11/08/18 07:33 Pain Level 7 11/08/18 14:01 Intake & Output 11/07/18 11/08/18 11/08/18 23:59 11:59 23:59 Intake Total 450 / 450 Output Total 300 / 300 700 / 700 Balance -300 / -300 -250 / -250 Weight 54.658 kg Intake: Oral 450 / 450 Output: Urine 300 / 300 700 / 700 Other: Urine Color Yellow Yellow Urine Appearance Clear Clear Urine Odor None None Voiding Methods Bedside Commode Bedside Commode
[2018-11-08 15:01] VITALS: RESP 16
[2018-11-08] MEDS: Enoxaparin 40 MG/0.4 ML SYR SC (17:48)
[2018-11-08] MEDS: traMADol 50 MG TAB PO (17:52)
[2018-11-08] MEDS: Docusate Sodium 100 MG CAP PO (17:53)
--- NOTE | 2018-11-08 18:20 | PDOC.CMIN ---
- If Service Date Differs Date of service: 11/08/18 Time of Service: 18:20 Care Management Initial Assess REASON FOR HOSPITALIZATION:: Pelvic fracture PAST MEDICAL HISTORY/PAST SURGICAL HISTORY:: Medical: disability due to neurological disorder, vision loss R eye, meningioma-recurrent of brain, neurofibromatosis II, H/O sarcoma, asthma, quadriparesis (muscle wealness), seizure disorder, hypothyroidism, GERD, erysipelas (acute), benign schwannoma. Surgical: s/p craniotomy PREVIOUS FUNCTIONAL STATUS/SOCIAL/FAMILY SUPPORTS:: She is 33 yo woman who lives alone in an apt at the [facility] in [place]. Her primary family support is her mother Margie Barnett. She is and has complex medical history. At baseline she is able to live independently with support services and a handicap apartment at the [facility]. She is a high school graduate who attended [employer] for training in medical coding and billing. Has services from [facility] and [facility]. CURRENT FUNCTIONAL STATUS:: Katherine is alert and engaged with CM. She is able to discuss events that led to her admission. Her 4WW broke which caused her to fall at her residence. ADVANCE DIRECTIVES:: None on file she states she does have a copy, requested it be filed at [facility]. Has patient been provided with information about the portal?: Yes Did the patient sign up for the portal?: No CODE STATUS:: Full Code INSURANCE COVERAGE / FINANCIAL ISSUES:: Medicare CURRENT HOME/COMMUNITY SERVICES/EQUIPMENT:: [employer], [employer] assistance who are helping her to reapply for LTC Medicaid, which she was initially denied for clinicals. She uses [facility] for transport when family or friends/[employer] unable to take her. She is receptive to services if recommended. She has handicap apt with grab bars, tub seat, HH shower, and indepednently ordered a 4WW which she ordered and delivered today. PRIMARY CARE PHYSICIAN:: Anupama Joya NP POTENTIAL DISCHARGE NEEDS:: New face to face for home health services including PT/OT and WINDOW AND DOOR INSTALLER. Resumption of [employer] and [employer] community case management. Follow up with primary care provider. PATIENT/FAMILY EDUCATION NEEDS:: Review d/c instructions re meds and activity levels. Review Ask me Now questions to assure patient understanding of reason for hospitalization. ANTICIPATED BARRIERS TO DISCHARGE:: Katherine's discharge readinieness to return home to soon. PT eval ordered to assess safe discharge plan and 4WW training. TRANSPORTATION:: Via private car with Mom vs [facility] to be coordintated by CM PLAN:: Katherine will have PT eval, monitor and treatment for symptoms of pain. Anticipate she will be discharged home on with [facility].
[2018-11-08] MEDS: Melatonin 3 MG TAB PO (19:59)
[2018-11-08 20:00] VITALS: O2SAT 96
[2018-11-08 21:40] VITALS: BP 94/62; PULSE 85; RESP 17; TEMP 36.3; O2SAT 97
[2018-11-09 00:31] VITALS: BP 96/62; PULSE 77; RESP 16; TEMP 36.4; O2SAT 96
[2018-11-09] MEDS: Levothyroxine 88 MCG TAB PO (06:40)
[2018-11-09 07:25] VITALS: BP 100/70; PULSE 78; RESP 18; TEMP 35.5; O2SAT 97
[2018-11-09 07:34] LABS: Anion Gap 7.7 mmol/L (3-11); BUN 20 mg/dL (7-18); CO2 27.3 mmol/L (21.0-32.0); CREATININE 0.65 mg/dL (0.55-1.02); Chloride 106 mmol/L (98-107); Glucose 87 mg/dL (70-100); Potassium 4.3 mmol/L (3.5-5.1); Sodium 141 mmol/L (136-145)
--- NOTE | 2018-11-09 08:45 | IN_ITS ---
Date of service: 11/09/18 Time of Service: 08:33 PT Notes Inpatient Physical Therapy Evaluation Date: 11/07/2018 Referring Doctor: Becky Núñez NP PT Orders: PT CONSULT: Please work on transfers and safe use of walker Precautions: Fall. Standard. 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 Patient was sent to the ED on 11/07/2018 via EMS and was diagnosed with a pelvic fracture sustained from a mechanical fall on her way to the dining room area of her apartment building for lunch. PMHX: Medical History Meningioma, recurrent of brain (Chronic) Neurofibromatosis II (Chronic) History of sarcoma (Chronic) Asthma (Chronic) Quadriparesis (muscle weakness) (Chronic) Seizure disorder (Chronic) Hypothyroidism (Chronic) GERD (gastroesophageal reflux disease) (Chronic) Surgical History S/P craniotomy (Chronic) Social History/Home Situation: Kathreine lives alone on the fourth floor of an apartment building in [place], [place] with both ramp and 5 steps to enter. She spends weekends at her mother's house where there are 4 steps to enter. Patient states she has a shower chair and owns a 4WW which she says she has used since 2016. Patient has gone to outpatient physical therapy services twice a week for mobility progression as well as balance and strengthening skilling. She states that she goes down to the first floor of the apartment building where she gets lunch through [employer]. Current Functional Limitations: Requires assistance and assistive device with ambulation task performance with decreased safety of MRADL performance due to balance impairment Equipment Owned/DME: 4WW, shower chair Subjective: Patient states that the fall this morning was purely accidental and that except for today's unfortunate event, she has not fallen for the past year or so. She is hoping that she can go back home today and continue her outpatient physical therapy services. She states that she has been doing so good with her outpatient physical therapy. Objective: General Observation: Patient seen resting in ICU bed. Wound dressing to right frontoparietal area. Craniotomy incision well-healed. R hand with residual claw deformity from cervical sarcoma. Mental Status: Alert and oriented x4 Pain: 2/10 at rest, 9/10 with ambulation activity and with weight bearing ROM: Right Upper Extremity: Shoulder Flexion less than 50% of AROM. Shoulder abduction less than 50% of AROM. Elbow flexion WFL. Elbow extension WFL. Wrist flexion about 0-10. Wrist extension about 0-5. Patient able to partially extend fingers to neutral and has weak peer health promoter. Left Upper Extremity: Shoulder Flexion WFL. Shoulder abduction WFL. Elbow flexion WFL. Wrist flexion WFL. Functional opening and closing of hand WFL. Right Lower Extremity: Hip flexion WFL. Hip abduction WFL. Knee flexion WFL. Ankle dorsiflexion WFL. Ankle plantarflexion WFL. Left Lower Extremity: Hip flexion WFL. Hip abduction WFL. Knee flexion WFL. Ankle dorsiflexion WFL. Ankle plantarflexion WFL. Strength: Right Upper Extremity: Shoulder flexors 3-/5. Shoulder abductors 3-/5. Elbow flexors 3/5. Elbow extensors 3+/5. Wrist flexors 3-/5. Wrist extensors 3-/5. Transmission And Coordination Engineer weak. Left Upper Extremity: Shoulder flexors 4/5. Shoulder abductors 4/5. Elbow flexors 4/5. Elbow extensors 4/5. Transmission And Coordination Engineer strong. Right Lower Extremity: Hip flexors 4/5. Hip abductors 4/5. Knee flexors 4/5. Knee extensors 4/5. Ankle dorsiflexors 4/5. Ankle plantarflexors 4/5. Left Lower Extremity:Hip flexors 4/5. Hip abductors 4/5. Knee flexors 4/5. Knee extensors 4/5. Ankle dorsiflexors 4/5. Ankle plantarflexors 4/5. Bed Mobility/Transfers: Rolling I Supine to sit I Sit to supine I Sit to stand Supervision Stand to sit Supervision Bed to chair Supervision Chair to bed Supervision Gait: Patient tolerated level surface ambulation about 50 feet using FWW with SBA, minimal verbal cues for directions and walker management. Step height and length reduced. Gait velocity reduced due to decreased visual acuity. Reported no dizziness, no headache nor chest pain. Pain level went up to 8-9/10 which subsided with rest. Balance: Static Sitting: Good Dynamic Sitting: Good Static Standing: Fair Dynamic Standing: Fair Special Tests: Mobility Limitations Standardized Measure [facility] AM-PAC 6 clicks Basic Mobility Inpatient Short Form: Raw Score: 20 CMS Score: 36% deficit Informed Consent/Education: Patient instructed in purpose of PT consult and plan of care. Patient was advised that due to her intensity of pain report with weight bearing, stability level is currently compromised. The use of a front wheeled walker therefore provides more stability than her current 4 wheeled walker. Patient is agreeable to go home with a front wheeled walker with plan to progress back to the use of her 4 wheeled walker with guidance of the outpatient physical therapist. Case management was made aware of patient's agreement with the plan. Assessment: Patient is a 33 Year old female with previous meningioma resections status post fall today resulting to a pelvic fracture. Patient presents with clinical signs and symptoms consistent with current/admitting diagnoses that have resulted to mobility limitations, gait instability, generalized weakness, and impairment of motor control as demonstrated by the following impairment level findings: 1. Decreased strength to B LE major muscle groups and R UE 2. Impaired standing balance 3. Impaired activity tolerance 4. Residual deficit in R shoulder, elbow, and wrist/hand from C6/C7 sarcoma in 2016 5. Decreased visual acuity due to CN III and IV affectation Impairments are contributing to the following functional limitations: 1. Inability to safely ambulate without assistive device 2. Increase completion time for mobility ADL performance 3. Increased fall risk Patient is assessed as a Moderate 85086 complexity based on the following: History: Right-handed female patient who lives alone with Neurofibromatosis Type II affeccted with residual R UE hemiparesis from C6/C7 cervical spine sarcoma in 2016 S/P previous resections for recurrent meningioma now presenting with pelvic fracture Examination: Underlying impairments and functional limitations as noted above normal Presentation: Evolving Decision Makin Moderate complexity Goals: Goals X1 week 1. Supine-Sit independent 2. Sit-Supine independent 3. Sit-Stand independent 4. Stand-Sit independent 5. Bed-Chair independent 6. Chair-Bed independent 7. Independent gait on level surface with use of least restrictive device for at least 300 feet without report of pain nor dyspnea 8. Independent with home exercise program 9. Good static and dynamic standing balance/tolerance Plan of Care/Treatment Plan: 1-2x/day, 7 days/week x 1 week. Plan of care has been reviewed with the TIMERS INSPECTOR providing the service under Physical Therapy direction. Initiate Physical Therapy intervention for strengthening, bed mobility, transfers, gait, stairs, balance training, use of assistive device. DISCHARGE RECOMMENDATIONS: Will benefit from home health PT/OT services in order to progress to independent mobility performance without use of assistive device, assess home safety/adaptive equipment/DME needs, establish/implement a functional maintenance program for strengthening, facilitate reintegration to community. TREATMENT CODE/TIME: 73803 for 35 minutes beginning at 15:39 PM. Thank you very much for this referral. Myrna Kendrick, PT, DPT, CLT [facility]
[2018-11-09] MEDS: traMADol 50 MG TAB PO (09:18)
[2018-11-09] MEDS: Sertraline 50 MG TAB PO (09:19)
[2018-11-09] MEDS: Multivitamin w/Minerals TAB 1 TAB PO (09:19)
[2018-11-09] MEDS: levETIRAcetam 500 MG TAB PO (09:19)
[2018-11-09] MEDS: Omeprazole 20 MG CAPCR PO (09:19)
--- NOTE | 2018-11-09 13:51 | PDOC.CMDIS ---
- If Service Date Differs Date of service: 11/09/18 Time of Service: 13:51 LACE Index Scoring Tool - Questions: Length of Stay (in days): 3 Acuity (Admit via E.D.?): Yes Comorbidities: Any Tumor E.D. Visits: 2 - Answers: Total Score: 10 Risk of Readmission: High Risk Care Management Discharge Reason for Hospitalization: Pelvic fracture Discharge Plan: Katherine will be discharged home today with new home health PT, OT, and AIR ANALYSIS ENGINEERING TECHNICIAN. She obtained a new walker from [facility] and PT consulted and cleared for discharge. CM contacted her Mother to notify of discharge she has requested [facility] be arrainaged for transporation. Patient/Family Education Needs: Discharge education, limitations and follow up plan of care inclduing ask me three. CM reviewed plan for discharge with her Mom over the phone. Services Needed at Discharge: Home Delivered Meals, Transportation
--- NOTE | 2018-11-09 13:55 | PT.INTREAT ---
Date of service: 11/09/18 Time of Service: 13:56 PT Notes Inpatient Physical Therapy Treatment Note [facility] Date: 11/09/2018 PRECAUTIONS: Fall, activity as tolerated SUBJECTIVE: Harmony states that she is going home this afternoon, she feels that she will be able to manage safely at home using her 4WW. OBJECTIVE: PAIN: Patient complained of pelvic pain with sit?to?stand transfer as well as with standing BED MOBILITY/TRANSFERS Supine-sit: I Sit-stand: S Stand-sit: S GAIT Assistive Device: 4WW Weight bearing: Full Assist: S Distance: 150' ASSESSMENT: Patient tolerated session well, with minimal complaints of pelvic pain with [id number] transfer and standing. She was able to tolerate a progression in gait distance using 4WW support with supervision. Patient demonstrates appropriate and safe use of 4WW. PLAN: Continue with PTs POC TREATMENT CODE/TIME: 10 minutes; [id number]
--- NOTE | 2018-11-09 17:00 | INDS_ITS ---
Date of service: 11/09/18 Time of Service: 17:00 PT Notes Inpatient Physical Therapy Discharge Summary Dates: 11/09/2018 Dates of Service: 11/09/2018 only This is a clinical summary of care provided on the duration of dates listed above. No charge was made in the completion of this documentation. Referring Doctor: Becky Núñez NP PT Orders: PT CONSULT: Please work on transfers and safe use of walker Precautions: Fall. Standard. 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 Patient was sent to the ED on 11/07/2018 via EMS and was diagnosed with a pelvic fracture sustained from a mechanical fall on her way to the dining room area of her apartment building for lunch. PMHX: Medical History Meningioma, recurrent of brain (Chronic) Neurofibromatosis II (Chronic) History of sarcoma (Chronic) Asthma (Chronic) Quadriparesis (muscle weakness) (Chronic) Seizure disorder (Chronic) Hypothyroidism (Chronic) GERD (gastroesophageal reflux disease) (Chronic) Surgical History S/P craniotomy (Chronic) Social History/Home Situation: Katherine lives alone on the fourth floor of an apartment building in [place], [place] with both ramp and 5 steps to enter. She spends weekends at her mother's house where there are 4 steps to enter. Patient states she has a shower chair and owns a 4WW which she says she has used since 2016. Patient has gone to outpatient physical therapy services twice a week for mobility progression as well as balance and strengthening skilling. She states that she goes down to the first floor of the apartment building where she gets lunch through [employer]. Current Functional Limitations: Requires assistance and assistive device with ambulation task performance with decreased safety of MRADL performance due to balance impairment Equipment Owned/DME: 4WW, shower chair Subjective: Patient states that the fall this morning was purely accidental and that except for today's unfortunate event, she has not fallen for the past year or so. She is hoping that she can go back home today and continue her outpatient physical therapy services. She states that she has been doing so good with her outpatient physical therapy. Objective: General Observation: Patient seen resting in ICU bed. Wound dressing to right frontoparietal area. Craniotomy incision well-healed. R hand with residual claw deformity from cervical sarcoma. Mental Status: Alert and oriented x4 Pain: 2/10 at rest, 9/10 with ambulation activity and with weight bearing ROM: Right Upper Extremity: Shoulder Flexion less than 50% of AROM. Shoulder abduction less than 50% of AROM. Elbow flexion WFL. Elbow extension WFL. Wrist flexion about 0-10. Wrist extension about 0-5. Patient able to partially extend fingers to neutral and has weak cdl bulk driver. Left Upper Extremity: Shoulder Flexion WFL. Shoulder abduction WFL. Elbow flexion WFL. Wrist flexion WFL. Functional opening and closing of hand WFL. Right Lower Extremity: Hip flexion WFL. Hip abduction WFL. Knee flexion WFL. Ankle dorsiflexion WFL. Ankle plantarflexion WFL. Left Lower Extremity: Hip flexion WFL. Hip abduction WFL. Knee flexion WFL. Ankle dorsiflexion WFL. Ankle plantarflexion WFL. Strength: Right Upper Extremity: Shoulder flexors 3-/5. Shoulder abductors 3-/5. Elbow flexors 3/5. Elbow extensors 3+/5. Wrist flexors 3-/5. Wrist extensors 3-/5. Sales Representative Printing Supplies weak. Left Upper Extremity: Shoulder flexors 4/5. Shoulder abductors 4/5. Elbow flexors 4/5. Elbow extensors 4/5. Sales Representative Printing Supplies strong. Right Lower Extremity: Hip flexors 4/5. Hip abductors 4/5. Knee flexors 4/5. Knee extensors 4/5. Ankle dorsiflexors 4/5. Ankle plantarflexors 4/5. Left Lower Extremity:Hip flexors 4/5. Hip abductors 4/5. Knee flexors 4/5. Knee extensors 4/5. Ankle dorsiflexors 4/5. Ankle plantarflexors 4/5. Bed Mobility/Transfers: Rolling I Supine to sit I Sit to supine I Sit to stand Supervision Stand to sit Supervision Bed to chair Supervision Chair to bed Supervision Gait: Patient tolerated level surface ambulation about 50 feet using FWW with SBA, minimal verbal cues for directions and walker management. Step height and length reduced. Gait velocity reduced due to decreased visual acuity. Reported no dizziness, no headache nor chest pain. Pain level went up to 8-9/10 which subsided with rest. Balance: Static Sitting: Good Dynamic Sitting: Good Static Standing: Fair Dynamic Standing: Fair Assessment: Patient is a 33 Year old female with previous meningioma resections status post fall today resulting to a pelvic fracture. Patient presents with clinical signs and symptoms consistent with current/admitting diagnoses that have resulted to mobility limitations, gait instability, generalized weakness, and impairment of motor control as demonstrated by the following impairment level findings: 1. Decreased strength to B LE major muscle groups and R UE 2. Impaired standing balance 3. Impaired activity tolerance 4. Residual deficit in R shoulder, elbow, and wrist/hand from C6/C7 sarcoma in 2016 5. Decreased visual acuity due to CN III and IV affectation Impairments are contributing to the following functional limitations: 1. Inability to safely ambulate without assistive device 2. Increase completion time for mobility ADL performance 3. Increased fall risk Goals: Goals X1 week 1. Supine-Sit independent NOT MET 2. Sit-Supine independent NOT MET 3. Sit-Stand independent NOT MET 4. Stand-Sit independent NOT MET 5. Bed-Chair independent NOT MET 6. Chair-Bed independent NOT MET 7. Independent gait on level surface with use of least restrictive device for at least 300 feet without report of pain nor dyspnea NOT MET 8. Independent with home exercise program NOT MET 9. Good static and dynamic standing balance/tolerance NOT MET DISCHARGE RECOMMENDATIONS: Will benefit from home health PT/OT services in order to progress to independent mobility performance without use of assistive device, assess home safety/adaptive equipment/DME needs, establish/implement a functional maintenance program for strengthening, facilitate reintegration to community. TREATMENT CODE/TIME: [place] Thank you very much for this referral. Myrna Kendrick, PT, DPT, CLT [facility]
--- NOTE | 2018-11-09 19:23 | PDOC.HHF2F ---
1. Encounter Date and Reason I certify that DHAVAL NAGY was seen by Becky Núñez on 11/09/18 and that I had a [id number] encounter with this patient that meets the physician face to face encounter requirements. 2. Clinical Findings Supporting Skilled Need and Homebound Status I certify that home health services are medically necessary, include either intermittent prison and/or physical/speech therapy, and that this patient is homebound in that absences from the home require considerable and taxing effort and are infrequent or of short duration, or are attributable to the need to receive medical care. [X] (a) Attached documentation from encounter provides clinical findings supporting skilled need and homebound status (including what assistance patient requires to leave the home). The encounter with the patient was in whole, or in part, for the following medical condition, which is the primary reason for home health care: PUBIC RAMUS FRACTURE Half-Way: Physical Therapy: Needed to gain strength and endurance after hospitalization for left pubic ramus fracture. OT: Needed to evaluate home environment and ability to perform ADLs and IADLs. Assess needs and make recommendations as needed. Speech Therapy: Homebound: Unable to leave home without assistance. 3. Certification and Authentication I certify that I composed the above information based on my clinical judgement relating to this patient's medical condition and, if applicable, clinical findings communicated to me by the NPP or inpatient physician who performed the Home Health Referral. All further orders will be obtained through ____Anupama Joya (Community Based Physician - PCP)
== END 2018-11-09 14:24 | disposition home health service (06) ==
LOC: ER 18:23 → MS 11-08 10:16
PROVIDERS: Nurse Practitioner; Admitting Provider General Practice; Emergency Provider Student in an Organized Health Care Education/Training Program; PCP Nurse Practitioner; Visit Provider Internal Medicine
DX: S32.592A Other specified fracture of left pubis, initial encounter for closed fracture (principal); W19.XXXA Unspecified fall, initial encounter; R53.1 Weakness; G40.909 Epilepsy, unspecified, not intractable, without status epilepticus; E03.9 Hypothyroidism, unspecified; K21.9 Gastro-esophageal reflux disease without esophagitis
CPT/HCPCS: 36415; 80048; 97110; 97162; 97530; 99222; 99225; 99239; 99285; J1650; 71046; 71100; 72072; 73502; 99219; 99284; G0378

== ENCOUNTER 2019-02-16 13:56 | Outpatient (CLI) | payer MEDICARE, SELFPAY ==
[2019-02-16 14:49] LABS: HCT 38.2 % (36.0-46.0); HGB 12.6 g/dL (12.0-15.5); Mean Corpuscular Hemoglobin 27.3 pg (27.0-33.0); Mean Corpuscular Volume 82.9 fL (80-95); Mean Platelet Volume 9.8 fL (8.0-11.0); Platelet Count 234 x1000/uL (130-400); RBC 4.61 m/cumm (4.00-5.20); RBC Distribution Width 14.3 % (11.7-14.6); White Blood Cell Count 8.18 k/cumm (4.4-10.8)
[2019-02-16 15:26] LABS: Iron 45 ug/dL (50-175); Total Iron Binding Capacity 254 ug/dL (250-450); Transferrin Sat 18 % (15-50)
== END 2019-02-16 14:16 ==
PROVIDERS: PCP Nurse Practitioner; Visit Provider Nurse Practitioner
DX: D64.9 Anemia, unspecified (principal)
CPT/HCPCS: 36415; 85027; 83540; 83550

== ENCOUNTER 2019-03-01 00:38 | Emergency (ER) | payer MEDICARE, SELFPAY ==
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
[2019-03-01 00:42] VITALS: BP 100/66; PULSE 86; RESP 16; TEMP 36.5; O2SAT 97
--- NOTE | 2019-03-01 01:03 | NUR.NOTE ---
Nursing Note: S.O. states he isn't sure she had a seizure. Reports she told him her left arm was tingling, then her speech became slurred. States her left arm my has been shaking for a minute. Then speech went back to normal.
--- NOTE | 2019-03-01 01:24 | DI.CT_ITS ---
EXAM: CT HEAD WO CLINICAL HISTORY: seizure aura/left arm numbness/slurred speech TECHNIQUE: Noncontrast cranial CT was performed. COMPARISON: CT FACIAL W from 10/09/2018 FINDINGS: The patient has a history of multiple meningiomas and prior resection of meningiomas with an apparent prior right temporal/frontal craniotomy. Previously noted meningiomas are much less visible on nonc ontrast CT than on prior examinations. There is probable mild increase in size of meningioma of the left parietal region. A parafalcine meningioma in the frontal region appears mildly enlarged in comp arison with prior study. The temporal horn of the right lateral ventricle is slightly increased in s ize since the prior study. No gross intracranial hemorrhage. Increased prominence of loss of attenuation of white matter of the right cerebral hemisphere in comparison with the previous examination and sulcal effacement noted, q uestion cerebral edema, encephalitis not excluded. IMPRESSION: Question interval increase in size of previously noted multiple meningiomas, poor visualization of me ningiomas on noncontrast CT. Question increased right hemisphere edema/sulcal effacement, correlation with MR including post contrast examination recommended.
[2019-03-01 01:35] VITALS: BP 99/68; PULSE 84; RESP 16; O2SAT 98
--- NOTE | 2019-03-01 01:38 | DI.VRAD_ITS ---
PROCEDURE INFORMATION: Exam: CT Head Without Contrast Exam date and time: 03/01/2019 12:56 AM Age: 33 years old Clinical history: Injury or trauma; Initial encounter; Blunt trauma (contusions or hematomas); Consciousness not specified; Injury date: 03/01/2019; Injury details: Seizure aura/left arm numbness, slurred speech. HX meningioma/craniotomy, most recent 07/2018; Prior surgery; Surgery date: 6+ months; Surgery type: Craniotomy 07/2018 TECHNIQUE: Imaging protocol: Computed tomography of the head without contrast. Radiation optimization: All CT scans at this facility use at least one of these dose optimization techniques: automated exposure control; mA and/or kV adjustment per patient size (includes targeted exams where dose is matched to clinical indication); or iterative reconstruction. COMPARISON: CT HEAD WO CONTRAST (G 09/05/2018 9:05 AM FINDINGS: Brain: Multiple meningiomas, some not clearly defined on noncontrast CT imaging. Edema and/or gliosis causing low attenuation throughout the white matter of the right cerebellar hemisphere and some sulcal effacement and this has progressed slightly. There is a meningioma left parietal region falx which measures approximately 16 mm maximal diameter as compared to 13 mm on the prior study. Anterior falx has a meningioma measuring approximately 33 mm, apparently increased in size since the comparison study. Ventricles: Temporal horn of the right lateral ventricle is dilated, slightly increased. Bones/joints: Craniotomy changes. Postoperative change, bony destruction and bony remodeling involving right temporal and sphenoid regions with soft tissue mass extending into the right orbit, increased in size since prior study now measuring approximately 25 x 17 mm on transverse imaging. Sinuses: No sinus fluid. Mastoid air cells: Unremarkable. Soft tissues: Unremarkable. IMPRESSION: Postoperative changes and multiple meningiomas. Several meningiomas have increased in size as detailed above. Overall mass effect, edema and gliosis associated with the lesions has progressed slightly. Dictated and Authenticated by: Virgilio Burton MD. Ordering:ELA Lynn MD
== END 2019-03-01 01:55 | disposition home or self-care (01) ==
LOC: ER 01:59
PROVIDERS: Emergency Provider Emergency Medicine; PCP Nurse Practitioner
DX: G40.909 Epilepsy, unspecified, not intractable, without status epilepticus (principal); Q85.02 Neurofibromatosis, type 2; R20.2 Paresthesia of skin; R47.81 Slurred speech
CPT/HCPCS: 99284; 70450

== ENCOUNTER 2019-03-19 12:03 | Outpatient (REF) | payer MEDICARE, SELFPAY ==
--- NOTE | 2019-03-19 11:00 | PAPFT_PTH ---
PATIENT: Katheirne Baugh LOC: [facility] U#:[id number] AGE/SX: 33/F ROOM: RE03/19/[address]: Chavo Cortes MD : 1985 BED: DIS: 03/19/2019 SPEC #: [id number] RECD: 03/19/19 12:47 STATUS: AUREA REQ #: [id number] RABIA: 03/19/19 11:[address]: Chavo Cortes DEPT: [facility] Cytology RECD BY: Marge Gamez ENTERED: 03/19/19 12:47 SP TYPE: PAPFT OTHR DR: Anupama Joya Tissues: 1 - CX/ENDOCX FOR PAP SMEARS Procedures: PAP THIN PREP/UVM Screening HPV DNA PROBE Comments: [id number]
== END 2019-03-19 12:23 ==
LOC: LBN 12:03
PROVIDERS: PCP Nurse Practitioner; Visit Provider Obstetrics & Gynecology
DX: Z12.4 Encounter for screening for malignant neoplasm of cervix (principal); Z11.51 Encounter for screening for human papillomavirus (HPV)
CPT/HCPCS: 88142; 87624

== ENCOUNTER 2019-05-18 23:40 | Emergency (ER) | payer SELFPAY | END 2019-05-23 12:26 | LOC: ER 05-22 10:53 | PROVIDERS: PCP Internal Medicine | DX: Z53.8 Procedure and treatment not carried out for other reasons (principal) ==

== ENCOUNTER 2019-05-18 23:53 | Emergency (ER) | payer MEDICARE, SELFPAY ==
--- NOTE | 2019-05-18 00:32 | DI.CT_ITS ---
EXAM: CT HEAD WO CLINICAL HISTORY: seizure, benign tumor resection last year TECHNIQUE: The exam was performed without contrast. COMPARISON: MR brain wo/w from 05/15/2018 CT HEAD WO CONTRAST (GENERIC) from 07/22/2018 MR brain wo/w from 10/11/2018 CT HEAD WO from 03/01/2019 FINDINGS: The patient has a history of multiple intracranial masses. There does appear to be interval increase in size of the parafalcine mass in the anterior cranial fossa. Currently this area measures 4.2 x 3. 9 centimeters. The intracranial masses are not ideally visualized without contrast. There is again seen a skull base mass with extension into the right orbit and right sphenoid sinus. This appears un changed. There is an unchanged mass in the left high parietal region. There are stable areas of dec reased attenuation in the white matter particularly involving the right cerebral hemisphere. There i s unchanged enlargement of the temporal horn of the right ventricular system. There is unchanged mas s effect. The patient has had a prior right craniotomy. There are unchanged erosive changes involvi ng the right skull base. The mastoid air cells are well aerated. No fluid levels are seen in the vi sualized paranasal sinuses. There are dural calcifications along the craniotomy site. IMPRESSION: Apparent interval increase in size of the parafalcine mass in the anterior cranial fossa. Otherwise no significant change is seen on this noncontrast examination.
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
[2019-05-18 23:49] VITALS: BP 101/65; PULSE 87; RESP 20; TEMP 36.6; O2SAT 100
--- NOTE | 2019-05-18 23:58 | NUR.NOTE ---
Nursing Note: Pt has healing abrasion right side above lip, bandage to top of head.
[2019-05-19] VITALS (9 sets, daily range): BP systolic 102–120; BP diastolic 67–79; PULSE 70–93; RESP 12–24; O2SAT 98–100
[2019-05-19 00:23] LABS: Abs Immature Grans 0.01 k/cumm (0.0-0.09); Absolute Basophil Count 0.01 k/cumm (0.0-0.2); Absolute Eosinophil Count 0.17 k/cumm (0.0-0.7); Absolute Lymphocyte Count 2.33 k/cumm (1.2-3.4); Absolute Monocyte Count 0.47 k/cumm (0.11-0.7); Absolute Neutrophil Count 4.09 k/cumm (1.2-6.7); Basophils % 0.1; Eosinophils % 2.4; HCT 36.8 % (36.0-46.0); HGB 12.2 g/dL (12.0-15.5); Immature Grans % 0.1 %; Lymphocytes % 32.9; Mean Corp. HGB Concentration 33.2 g/dL (32.0-36.0); Mean Corpuscular Hemoglobin 28.1 pg (27.0-33.0); Mean Corpuscular Volume 84.8 fL (80-95); Mean Platelet Volume 9.4 fL (8.0-11.0); Monocytes % 6.6; Neutrophils % 57.9; Platelet Count 237 x1000/uL (130-400); RBC 4.34 m/cumm (4.00-5.20); White Blood Cell Count 7.08 k/cumm (4.4-10.8)
[2019-05-19 00:36] LABS: ALT 26 U/L (14-59); AST 16 U/L (15-37); Albumin 3.3 g/dL (3.4-5.0); Alkaline Phosphatase 117 U/L (46-116); BUN 13 mg/dL (7-18); Bilirubin, Total 0.2 mg/dL (0.2-1.0); CREATININE 0.96 mg/dL (0.55-1.02); Calcium 8.3 mg/dL (8.5-10.1); Chloride 110 mmol/L (98-107); Glucose 114 mg/dL (74-106); Magnesium 2.1 mg/dL (1.8-2.4); Potassium 3.8 mmol/L (3.5-5.1); Sodium 145 mmol/L (136-145); Total Protein 6.8 g/dL (6.4-8.2)
--- NOTE | 2019-05-19 00:43 | NUR.NOTE ---
Nursing Note: Pt up to B[facility] with assist of 2. Transferred with minimal assist. Back to bed. Tolerated well.
--- NOTE | 2019-05-19 00:49 | DI.VRAD_ITS ---
PROCEDURE INFORMATION: Exam: CT Head Without Contrast Exam date and time: 05/18/2019 12:26 AM Age: 34 years old Clinical indication: Other: Seizure; Prior surgery; Surgery date: 1-6 months; Surgery type: Benign tumor resection, right frontal craniotomy TECHNIQUE: Imaging protocol: Computed tomography of the head without contrast. Radiation optimization: All CT scans at this facility use at least one of these dose optimization techniques: automated exposure control; mA and/or kV adjustment per patient size (includes targeted exams where dose is matched to clinical indication); or iterative reconstruction. COMPARISON: CT HEAD WO 03/01/2019 1:22 AM FINDINGS: Brain: Significant vasogenic edema again seen in right frontal lobe. There does not appear to be significant interval change compared to prior study. 1.5 x 1.5 cm extra-axial mass lesion adjacent to the posterior falx. No interval change compared to prior study. Ventricles: Normal. No ventriculomegaly. Bones/joints: Osseous erosions are seen in right anterior skull base with soft tissue densities consistent with mass lesion extending to right sphenoid sinus. 2.9 x 1.2 cm mass lesion is seen extending to right orbit with mild right proptosis. No significant interval change compared to prior study. Anterior parafalcine mass lesion again seen measuring 4.2 by 3.9 cm. There is interval increase in size of the lesion compared to prior study. Right pterional craniotomy Sinuses: Visualized sinuses are unremarkable. No fluid levels. Mastoid air cells: Visualized mastoid air cells are well aerated. Soft tissues: Unremarkable. Other findings: Multiple dural calcifications are seen adjacent to the tentorium. IMPRESSION: There is interval increase in size of large anterior parafalcine mass lesion now measuring 4.2 x 3.9 cm. Significant vasogenic edema again seen in right frontal lobe without interval change. Mass lesions again seen in right sphenoid wing extending to right orbit and right sphenoid sinus without interval change. Dictated and Authenticated by: Maria Del Rosario Ríos MD. Ordering:SAEED Lopez MD
== END 2019-05-19 01:14 | disposition home or self-care (01) ==
PROVIDERS: Emergency Provider Emergency Medicine; PCP Nurse Practitioner
DX: R47.81 Slurred speech (principal); G40.909 Epilepsy, unspecified, not intractable, without status epilepticus; Z98.890 Other specified postprocedural states
CPT/HCPCS: 36415; 80053; 99284; 70450; 83735; 85025; 99285

== ENCOUNTER 2019-05-28 18:18 | Observation (INO) | payer MEDICARE, SELFPAY ==
[2019-05-28 18:20] VITALS: BP 105/77; PULSE 94; RESP 16; TEMP 36.8; O2SAT 99
[2019-05-28 18:26] VITALS: BP 105/77; PULSE 91
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
--- NOTE | 2019-05-28 19:15 | DI.CT_ITS ---
EXAM: CT HEAD CERVICAL SPINE WO CLINICAL HISTORY: s/p fall, h/o brain tumor, r/o acute process/fx TECHNIQUE: COMPARISON: No exams were available for comparison FINDINGS: CT examination of the cervical spine was performed utilizing multi slice acquisition and multiplanar reconstruction. There are multiple laminectomies from C5 through T1. Deformity of multiple neural f oramina noted bilaterally, possible underlying soft tissue mass is in the neural foramina, correlatio n with prior history and prior examination is requested. There is a rim calcified mass at the right thoracic apex which is also perispinal in which could represent aneurysm or paraspinal tumor. Again correlation with previous studies requested. Tracheolaryngeal structures appear intact. No evidence of acute fracture or dislocation of the cervical spine. Noncontrast cranial CT was performed. There is history of prior surgical procedure with right fronta l temporal craniotomy and apparent encephalomalacia of right temporal. Marked decreased attenuation in right centrum semiovale noted, persistent or recurrent tumor not excluded. No gross hydrocephalus . Fat attenuation noted in region of the quadrigeminal cistern, associated with rim calcification. Right paramidline poorly defined mass effect frontal lobe, question para fall seen meningioma versus other tumor. Right intra orbital mass lesion, associated with rim calcification. Again, please correlate with joey or studies. This mass lies adjacent to and perhaps involving the optic nerve and is centered posteri mary right inferior paramedian. Mass measures up to about 24 x 16 millimeters in diameter on transax ial images. There is right proptosis. IMPRESSION: No evidence of acute intracranial hemorrhage. No evidence of acute cervical spine fracture or disloc ation. Multiple intracranial and paraspinal masses, please correlate with history and prior study. Right in tra orbital mass noted as well.
[2019-05-28] MEDS: Normal Saline 1,000 ML 1000 ML IV (19:43)
[2019-05-28 20:06] LABS: Abs Immature Grans 0.01 k/cumm (0.0-0.09); Absolute Basophil Count 0.02 k/cumm (0.0-0.2); Absolute Eosinophil Count 0.18 k/cumm (0.0-0.7); Absolute Lymphocyte Count 2.57 k/cumm (1.2-3.4); Absolute Monocyte Count 0.42 k/cumm (0.11-0.7); Absolute Neutrophil Count 4.66 k/cumm (1.2-6.7); Basophils % 0.3; Eosinophils % 2.3; HCT 37.8 % (36.0-46.0); HGB 12.4 g/dL (12.0-15.5); Immature Grans % 0.1 %; Lymphocytes % 32.7; Mean Corp. HGB Concentration 32.8 g/dL (32.0-36.0); Mean Corpuscular Hemoglobin 27.8 pg (27.0-33.0); Mean Corpuscular Volume 84.8 fL (80-95); Mean Platelet Volume 9.5 fL (8.0-11.0); Monocytes % 5.3; Neutrophils % 59.3; Platelet Count 233 x1000/uL (130-400); RBC 4.46 m/cumm (4.00-5.20); RBC Distribution Width 12.9 % (11.7-14.6); White Blood Cell Count 7.86 k/cumm (4.4-10.8)
--- NOTE | 2019-05-28 20:09 | DI.VRAD_ITS ---
PROCEDURE INFORMATION: Exam: CT Head Without Contrast Exam date and time: 05/28/2019 7:29 PM Age: 34 years old Clinical indication: Injury or trauma; Initial encounter; Blunt trauma (contusions or hematomas); Consciousness not specified; Injury date: 05/28/19; Injury details: Fall with lacerations on right side under eye and on R side of head; Prior surgery; Surgery date: 6+ months; Surgery type: Craniotomy, brain surgeries, most recent July 2018; Patient HX: HX of brain tumor TECHNIQUE: Imaging protocol: Computed tomography of the head without contrast. Radiation optimization: All CT scans at this facility use at least one of these dose optimization techniques: automated exposure control; mA and/or kV adjustment per patient size (includes targeted exams where dose is matched to clinical indication); or iterative reconstruction. COMPARISON: No relevant prior studies available. FINDINGS: Brain: Previous right temporal lobe partial resection. Parafalcine meningioma suggested series 8, image 39 to left of midline. This is a small calcified 3 cm lesion. No evidence of acute intracranial hemorrhage. There is a large amount of edema suggested in the right centrum semiovale. A persistent mass cannot be excluded. An MRI of this region would be helpful for a complete evaluation. Ventricles: Fatty focus within the region of the superior 4th ventricle and aqueduct of Sylvius. This could represent a lipoma in the subarachnoid space. Recommend clinical correlation. Bones/joints: Previous right temporal craniectomy. Sinuses: Visualized sinuses are unremarkable. No fluid levels. Mastoid air cells: Visualized mastoid air cells are well aerated. Soft tissues: See Brain Finding. Other findings: Multiple dural calcifications are suggested along the tentorium bilaterally. IMPRESSION: 1. Previous right temporal craniectomy. 2. Previous right temporal lobe resection. No acute intracranial hemorrhage or acute skull fracture. Please see above report for additional findings. 3. Prominent area of low signal throughout the right centrum semiovale. Cannot exclude edema surrounding a mass. This could represent chronic change. No prior films for comparison. MRI may be helpful for further evaluation for a persistent underlying parenchymal abnormality. PROCEDURE INFORMATION: Exam: CT Cervical Spine Without Contrast Exam date and time: 05/28/2019 7:29 PM Age: 34 years old Clinical indication: Injury or trauma; Initial encounter; Blunt trauma (contusions or hematomas); Consciousness not specified; Injury date: 05/28/19; Injury details: Fall with lacerations on right side under eye and on R side of head; Prior surgery; Surgery date: 6+ months; Surgery type: Craniotomy, brain surgeries, most recent July 2018; Patient HX: HX of brain tumor TECHNIQUE: Imaging protocol: Computed tomography images of the cervical spine without contrast. Radiation optimization: All CT scans at this facility use at least one of these dose optimization techniques: automated exposure control; mA and/or kV adjustment per patient size (includes targeted exams where dose is matched to clinical indication); or iterative reconstruction. COMPARISON: No relevant prior studies available. FINDINGS: Vertebrae: No fracture or dislocation. Discs/Spinal canal/Neural foramina: Degenerative cervical spine changes. No fracture. No suspicious focal bone lesions. No malalignment evident. Multilevel laminectomies at C5, C6, C7, and T1. No CT evidence of significant disc bulge or herniation. There appears to be expansion of multiple neural foramina within the cervical spine which could represent tumors of a neurogenic origin. Recommend clinical correlation with known history. This patient has had previous surgery and laminectomies. These could represent neuromas. These could represent schwannomas. These could be neurogenic cysts. This is difficult to determine on a noncontrast CT. Soft tissues: Soft tissues of the left thoracic apex region show partially calcified 2.7 x 2.2 cm lesion. Significance is uncertain. This could represent a vascular focus such as an aneurysm. This could be a calcified lymph node or other process. This does appear to be extrapleural in the apex of the hemithorax. Recommend correlation in comparison with previous studies. This is appreciated on series 5, image 279 and series 6, image 23. Also seen on sagittal series 7, image 38. Possibly is similar process similar to that which is expanding the multi neural foramina. Lungs: Lung apices are normal. IMPRESSION: 1. No fracture or dislocation. 2. Multilevel laminectomies. 3. Degenerative cervical spine disease. 4. Multilevel foraminal expansion suggesting chronic neurogenic tumors or cysts. This is difficult to determine by noncontrast CT. Please correlate with patient's previous history and comparison with old studies. 5. Right apical hemithorax extrapleural soft tissue nodule as detailed above. Uncertain significance. Dictated and Authenticated by: Fernie Beltran MD. Ordering:MONO Santos MD
[2019-05-28 20:29] LABS: ALT 25 U/L (14-59); AST 12 U/L (15-37); Albumin 3.6 g/dL (3.4-5.0); Alkaline Phosphatase 109 U/L (46-116); Anion Gap 7.6 mmol/L (3-11); BUN 17 mg/dL (7-18); Bilirubin, Total 0.2 mg/dL (0.2-1.0); CO2 29.4 mmol/L (21.0-32.0); CREATININE 0.67 mg/dL (0.55-1.02); Calcium 9.1 mg/dL (8.5-10.1); Chloride 107 mmol/L (98-107); Glucose 100 mg/dL (74-106); Potassium 4.1 mmol/L (3.5-5.1); Sodium 144 mmol/L (136-145); TSH (W/Ref FT4) 1.41 uIU/mL (0.36-3.74); Total Protein 7.3 g/dL (6.4-8.2)
[2019-05-28 20:51] LABS: Bilirubin Negative (Negative); Blood Negative (Negative); Clarity Clear (Clear); Glucose Negative (Negative); Ketones Negative (Negative); Leukocyte Esterase Large (Negative); Nitrite Negative (Negative); Specific Gravity >= 1.030 (1.005-1.025); Urobilinogen 0.2 EU/dL (Up TO 0.2); pH 5.5 (5-8)
[2019-05-28 21:00] LABS: Bacteria Many HPF (Negative); C & S Indicated? No/Sq. Contamination; Casts Negative LPF (Negative); Crystals Negative HPF (Negative); Epithelial Cells Many HPF (Negative); Mucus Negative (Negative); RBC Negative HPF (0-2); WBC >50 HPF (0-5)
[2019-05-28 22:21] VITALS: O2SAT 98
[2019-05-28 22:25] VITALS: BP 100/66; PULSE 83; RESP 16; TEMP 36.6; O2SAT 98
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
[2019-05-28] MEDS: Dexamethasone 4 MG/ML VIAL IVP (22:48)
[2019-05-28 23:47] VITALS: BP 116/77; PULSE 80; RESP 17; TEMP 36.4; O2SAT 99
[2019-05-29 00:05] LABS: Magnesium 2.2 mg/dL (1.8-2.4)
[2019-05-29] MEDS: clonazePAM 1 MG TAB PO ×2 (00:49→23:04)
[2019-05-29] MEDS: Melatonin 3 MG TAB PO ×2 (00:49→23:03)
[2019-05-29] MEDS: levETIRAcetam 500 MG TAB 1500 MG PO ×3 (00:49→20:44)
[2019-05-29 03:58] VITALS: BP 116/74; PULSE 73; RESP 16; TEMP 37; O2SAT 96
[2019-05-29] MEDS: Levothyroxine 88 MCG TAB PO (06:33)
[2019-05-29 07:28] VITALS: BP 100/67; PULSE 83; RESP 16; TEMP 37; O2SAT 96
[2019-05-29 07:53] LABS: HCT 36.7 % (36.0-46.0); HGB 12.3 g/dL (12.0-15.5); Mean Corp. HGB Concentration 33.5 g/dL (32.0-36.0); Mean Corpuscular Volume 83.6 fL (80-95); Mean Platelet Volume 9.8 fL (8.0-11.0); Platelet Count 243 x1000/uL (130-400); RBC 4.39 m/cumm (4.00-5.20); RBC Distribution Width 12.8 % (11.7-14.6)
--- NOTE | 2019-05-29 08:00 | DI.MRI_ITS ---
EXAM: MR BRAIN WO/W CLINICAL HISTORY: TRANSIENT LEFT LEG WEAKNESS WITH KNOWN MENINGIOMA. TECHNIQUE: Multiplanar multisequence MRI was performed. MR examination of the brain was performed a ccording to the usual protocol with additional post contrast T1 weighted axial and coronal imaging. COMPARISON: MR BRAIN / IAC W/WO CONTRAST from 11/25/2017 MRI BRAIN WWO from 02/07/2019 MRI BRAIN WWO from 02/07/2019 FINDINGS: Examination is compared with most recent prior MRI from [facility] of 02/07/2019. The patie nt reportedly has a history of neurofibromatosis. Note is again made of multiple lobulated enhancing lesions, anterior and posterior falcine lesions, r ight internal auditory canal, left temporal fossa lesion, large multi compartment right temporal/cave rnous/orbital, and right IAC region previously fat signal quadrigeminal cistern lesion also noted, pr esumed dermoid. Note is also again made of markedly abnormal signal in harper radiata on the right. These findings all appear essentially unchanged in comparison with the previous study, with the excep tion of increased size right posterior fossa lesion, which measured about 8 x 12 millimeters on trans axial imaging on the prior study and measures about 11 x 15 millimeters in diameter on the current st udy. No gross interval change in appearance of the ventricular system to suggest increasing deformit y or mass effect. No evidence of new matched diffusion restriction to suggest acute infarction. Susceptibility weighte d imaging shows no convincing swanson to suggest acute hemorrhage. IMPRESSION: Mild increase in size right posterior fossa extraaxial lesion since prior study. Otherwisestable appearance of numerous intracranial lesions as described above since outside study of 02/07/2019. DATA REPOSITORY:
[2019-05-29 08:09] LABS: ALT 22 U/L (14-59); AST 14 U/L (15-37); Albumin 3.3 g/dL (3.4-5.0); Alkaline Phosphatase 98 U/L (46-116); Anion Gap 7.5 mmol/L (3-11); BUN 14 mg/dL (7-18); Bilirubin, Total 0.2 mg/dL (0.2-1.0); CO2 27.5 mmol/L (21.0-32.0); CREATININE 0.64 mg/dL (0.55-1.02); Calcium 9.1 mg/dL (8.5-10.1); Chloride 106 mmol/L (98-107); Glucose 146 mg/dL (74-106); Potassium 4.1 mmol/L (3.5-5.1); Sodium 141 mmol/L (136-145); Total Protein 6.9 g/dL (6.4-8.2)
--- NOTE | 2019-05-29 08:13 | PDOC.CMIN ---
- If Service Date Differs Date of service: 05/29/19 Time of Service: 08:13 Care Management Initial Assess REASON FOR HOSPITALIZATION:: Head injury, TIA, seizure disorder PAST MEDICAL HISTORY/PAST SURGICAL HISTORY:: Medical: disability due to neurological disorder, vision loss R eye, meningioma-recurrent of brain, neurofibromatosis II, H/O sarcoma, asthma, quadriparesis (muscle wealness), seizure disorder, hypothyroidism, GERD, erysipelas (acute), benign schwannoma. Surgical: s/p craniotomy PREVIOUS FUNCTIONAL STATUS/SOCIAL/FAMILY SUPPORTS:: She is 33 yo woman who lives alone in an apt at the [facility] in [place]. Her primary family support is her mother Margie Barnett. She is and has complex medical history. At baseline she is able to live independently with support services and a handicap apartment at the [facility]. 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 Has services from [facility] and [facility]. CURRENT FUNCTIONAL STATUS:: Katherine is alert and engaged with CM. She talks about her fall and her recent history of increased seizures. She states that she has recently seen her neurologist at [facility] and has an appointment to return for additional MRI's. Katherine describes a good support system between friends and family and feels that she can return home and continue to have that support. CM will coordinate home services for PT and nursing she has several wounds on her face and forehead that shoul be monitored. Katherine agrees with the plan. ADVANCE DIRECTIVES:: None on file patient states that she has completed one in the past. Has patient been provided with information about the portal?: Yes Did the patient sign up for the portal?: No CODE STATUS:: Full Code INSURANCE COVERAGE / FINANCIAL ISSUES:: Medicare and Medicaid CURRENT HOME/COMMUNITY SERVICES/EQUIPMENT:: [facility], [facility], She has handicap apt with grab bars, tub seat, HH shower, and indepednently and 4WW PRIMARY CARE PHYSICIAN:: Anupama Black NP POTENTIAL DISCHARGE NEEDS:: Follow up appointment with primary care provider scheduled prior to discharge. [facility] PT recomended PATIENT/FAMILY EDUCATION NEEDS:: Discharge education, limitations and follow up plan of care including ask me three and self management. ANTICIPATED BARRIERS TO DISCHARGE:: None TRANSPORTATION:: Mom will transport home when medically ready for discharge coordinated by CM. PLAN:: Katherine is having an MRI today, provider to contact her neurologist at [facility]. Anticipate she will be discharged home when medically ready. She is currently obeservation anticipate she will be discharged home within the 48 hours, CM completed the MCCLURE with patient.
[2019-05-29] MEDS: Sertraline 25 MG TAB PO (09:13)
[2019-05-29] MEDS: Omeprazole 20 MG CAPCR PO (09:14)
[2019-05-29] MEDS: Ferrous Gluconate 324 MG TAB PO (09:14)
[2019-05-29] MEDS: Ascorbic Acid 500 MG TAB PO (09:14)
--- NOTE | 2019-05-29 09:58 | IN_ITS ---
Date of service: 05/29/19 Time of Service: 09:58 PT Notes Visit Reasons: HEAD INJURY,TIA,SEIZURE DISORDER WITH RECURRENT ME Physical Therapy Inpatient Initial Evaluation Date: 05/29/2019 Referring Doctor: Constanza Proctor N.P. PT Orders: PT CONSULT: gait and balance Precautions: Fall. Standard. Activity as tolerated. 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 Patient was seen in the ED on 05/28/2019 for a head injury following a fall when her left leg gave out. No reports of loss of consciousness. CT of the head showed parafalcine mass in the anterior cranial fossa. Admitted to the hospital for a head injury and transient left leg weakness. PMHX: Medical History (Updated 05/28/19 @ 22:31 by Luis Triplett) Amenorrhea, unspecified (Acute) Asthma (Chronic) Benign schwannoma (Resolved ~07/2018) Cancer of spinal column (Acute) Disability due to neurological disorder (Chronic) GERD (gastroesophageal reflux disease) (Chronic) 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 Hypothyroidism (Chronic) Meningioma, recurrent of brain (Chronic ~2015) Neurofibromatosis II (Chronic) Quadriparesis (muscle weakness) (Chronic ~2003) Seizure disorder (Chronic) Vision loss, right eye (Chronic) Surgical History S/P craniotomy (Chronic) Social History/Home Situation: Pt lives alone in her apartment at [facility]. Her apartment is handicap-accessible. Equipment Owned/DME: four-wheeled walker Subjective: Pt reports that she is tired. Started on Klonopin 6 days ago at [facility] and notes that she took her first dose on Tuesday and felt ?off.? Her boyfriend reports that she was wobbly all weekend with walking. Notes that she fell yesterday when she felt her left leg give out. She reports that she has not had any other falls since her last admission at this hospital. Objective: General Observation: Telemonitor in place. Long sitting in bed with the head of the bed at approximately 30 degrees. Trunk leaning to the right with R UE propped on pillow. Abrasions on right scalp over temporal bone, below right eye, and right crease of the mouth. Ptosis of the right eyelid. IV open on the R UE. Mental Status: alert and oriented x 4 Pain: 0/10 ROM: Right Upper Extremity: Shoulder Flexion unable to move due to paresis. Shoulder abduction unable to move due to paresis. Elbow flexion WFL. Wrist flexion WFL. Opening and closing of hand WFL. Left Upper Extremity: Shoulder Flexion WFL. Shoulder abduction WFL. Elbow flexion WFL. Wrist flexion WFL. Opening and closing of hand WFL. Right Lower Extremity: Hip flexion WFL. Hip abduction WFL. Knee flexion WFL. Ankle dorsiflexion WFL. Ankle plantarflexion WFL. Left Lower Extremity: Hip flexion WFL. Hip abduction WFL. Knee flexion WFL. Ankle dorsiflexion WFL. Ankle plantarflexion WFL. Strength: Right Upper Extremity: Shoulder flexors 1/5. Shoulder abductors 1/5. Elbow flexors 3-/5. Elbow extensors 3-/5. Tube Pusher functional. Left Upper Extremity: Shoulder flexors 3-/5. Shoulder abductors 3-/5. Elbow flexors 3+/5. Elbow extensors 3+/5. Tube Pusher functional. Right Lower Extremity: Hip flexors 3+/5. Hip abductors 3+/5. Knee flexors 4-/5. Knee extensors 4-/5. Ankle dorsiflexors 3-/5. Ankle plantarflexors 4-/5. Left Lower Extremity: Hip flexors 4/5. Hip abductors 4/5. Knee flexors 4/5. Knee extensors 4+/5. Ankle dorsiflexors 3+/5. Ankle plantarflexors 4-/5. Sensation: Intact as to pain and pressure on bilateral lower extremities. Bed Mobility/Transfers: Rolling Min A with HOB 30 degrees Supine to sit Min A with HOB 30 degrees Sit to supine Min A with HOB 30 degrees Sit to stand Min A Stand to sit Min A Bed to chair Min A Chair to bed Min A Gait: Pt was able to ambulate 5 feet + 5 feet, full weight bearing, using a front-wheeled walker. CGA provided by PT and PT student. Step to gait pattern with decreased step height and length. No heel strike bilaterally. Balance: Static Sitting: Fair Dynamic Sitting: Fair Static Standing: Fair Dynamic Standing: Fair Special Tests: Mobility Limitations Standardized Measure [facility] 6 clicks Basic Mobility Inpatient Short Form: Raw Score: 18 CMS Score: 47% deficit Informed Consent/Education: Patient instructed in purpose of PT consult and plan of care. Assessment: Pt is a 34-year-old female that was seen in the ER on 05/28/2019 for a head injury following a fall when her left leg gave out. No reports of loss of consciousness. CT of the head showed parafalcine mass in the anterior cranial fossa. Admitted to the hospital for a head injury and transient left leg weakness. Pt presents with impairment level findings and functional limitations as listed below. She demonstrates decreased lower extremity and upper extremity strength bilaterally, greater on the right. Presents as an increased fall risk due to recent fall, decreased strength, increased dependence with transfers, and use of an assistive device for ambulation. She would continue to benefit from skilled physical therapy at this time. Patient presents with clinical signs and symptoms consistent with current/admitting diagnoses that have resulted to mobility limitations, gait instability, generalized weakness, and impairment of motor control as demonstrated by the following impairment level findings: 1. Decreased strength to B LE and UE major muscle groups 2. Impaired sitting/standing balance 3. Impaired activity tolerance Impairments are contributing to the following functional limitations: 1. Dependent bed mobility skills 2. Increased dependence with transfers 3. Inability to safely ambulate without assistive device and physical assistance 4. Increase completion time for mobility ADL performance 5. Increased fall risk 6. Inability to negotiate steps alone safely Patient is assessed as a 93518 moderate complexity based on the following: History: Pt presents with impairment level findings and functional limitations as listed above. AM-PAC raw score of 18 with 47% deficit. Examination: Demonstrable impairment in strength, balance, and range of motion with underlying impairments and functional limitations as documented above Presentation: Evolving Decision Makin moderate complexity Goals: Goals X1 week 1. Supine-Sit independent 2. Sit-Supine independent 3. Sit-Stand independent 4. Stand-Sit independent 5. Bed-Chair independent 6. Chair-Bed independent 7. Independent gait on level surface with 4WW for at least [address] without [address] rt of pain nor dyspnea 8. Independent with home exercise program 9. Good static and dynamic standing balance/tolerance Plan of Care/Treatment Plan: 1-2x/day, 7 days/week x 1 week. Plan of care has been reviewed with the HOME HEALTH CARE PROVIDER providing the service under Physical Therapy direction. Initiate Physical Therapy intervention for strengthening, bed mobility, transfers, gait, stairs, balance training, use of assistive device. DISCHARGE RECOMMENDATIONS: Discharge pt to home with home health vs [facility] facility placement for continued skilled physical therapy services in order to progress mobility level, strength, and balance in preparation for a safe discharge to home. No equipment recommendations at this time. TREATMENT CODE/TIME: 00748 x 30 minutes, 50793 x 11 minutes beginning at 9:58 A.M. Thank you very much for this referral. Hoda Pierre, SPT Doctor of Physical Therapy Student [facility] Supervision provided by Myrna Kendrick PT, DPT, CLT [facility] [place], [place]
[2019-05-29] MEDS: Gadoterate meglumine 20 ML VIAL 12 ML IVP (10:49)
[2019-05-29 11:55] VITALS: BP 99/67; PULSE 72; RESP 18; TEMP 36.9; O2SAT 99
--- NOTE | 2019-05-29 12:38 | W.NUTCONSULT ---
Date of service: 05/29/19 Time of Service: 12:39 Nutritional Consult ASSESSMENT: 34 year old female admitted with weakness and head injury. PMH: history of brain tumore, craniotomy, quadriparesis. No dysphagia noted in medical chart. Following regular diet with adequate intake. Not considered at nutritional risk at this itme. MONITORING AND EVALUATION: po intake, labs, weight Time Spent in Nutritional Counseling and Treatment: 5 min spent face to face
[2019-05-29 15:40] VITALS: BP 100/62; PULSE 85; RESP 16; TEMP 37.2; O2SAT 97
--- NOTE | 2019-05-29 16:02 | NT_ITS ---
Date of service: 05/29/19 Time of Service: 16:02 PT Notes Visit Reasons: HEAD INJURY,TIA,SEIZURE DISORDER WITH RECURRENT ME 05/29/2019 Pt stating she is too tired for PT this afternoon. Will resume in the AM. Norma Yip, FUSING FURNACE LOADER
--- NOTE | 2019-05-29 16:54 | PGE_ITS ---
Date of Service Date of service: 05/29/19 Time of Service: 16:55 Assessment and Plan Assessment and plan (1) Head injury without concussion or intracranial hemorrhage: Status: Acute Assessment and plan: spoke with neurosurgery, Dr Rojas who recommends dexamethasone 10 mg IV push followed by 4 mg po q6 with a 2 week taper cut in / q3days Qualifiers: Encounter type: initial encounter Qualified Code(s): S09.90XA - Unspecified injury of head, initial encounter Subjective Subjective Interval history since last seen: no new c/o other than fatigue, feels back to baseline with mild weakness left which is chronic Exam Const General: cooperative Nutritional Appearance: average body habitus Orientation: alert, awake and oriented x3 HENMT Head: signs of trauma (swelling to right side of face/eye consistent with trauma. 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, no hand pad extraction tender) Right lower extremity: normal to inspection and full ROM; no edema Left lower extremity: normal to inspection and full ROM; no edema Objective Objective Clinical Data: Abnormal lab results 05/28/19 05/28/19 05/29/19 Range/Units 20:00 20:35 07:36 Glucose 146 H (74-106) mg/dL AST 12 L 14 L (15-37) U/L Albumin 3.3 L (3.4-5.0) g/dL Ur Specific [place] >= 1.030 H (1.005-1.025) Ur Leukocyte Esterase Large H (Negative) Urine WBC >50 H (0-5) HPF Vital Signs Temperature 36.9 C 05/29/19 11:55 Temperature Source Tympanic 05/29/19 11:55 Pulse 72 05/29/19 11:55 Pulse Rhythm Regular 05/28/19 23:47 Respiratory Rate 18 05/29/19 11:55 Respiratory Effort Non-Labored 05/28/19 23:47 Respiratory Depth Normal 05/28/19 23:47 Respiratory Pattern Normal 05/28/19 23:47 Blood Pressure 99/67 L 05/29/19 11:55 Blood Pressure Mean 83 05/28/19 18:26 Pulse Oximetry 99 05/29/19 11:55 Oxygen Delivery Method Room Air 05/29/19 11:55 Oxygen Flow Rate 0 05/29/19 11:55 Pain Level 0 05/29/19 07:28 Intake & Output 05/28/19 05/29/19 05/29/19 23:59 11:59 23:59 Intake Total 1010 / 1010 480 / 720 240 / 720 Output Total 800 / 800 Balance 1010 / 1010 -320 / -80 240 / -80 Weight 64 kg 65.7 kg Intake: IV 1010 / 1010 Oral 480 / 720 240 / 720 Output: Urine 800 / 800 Other: Urine Color Pale Yellow Urine Appearance Clear Clear Urine Odor Strong Comment missed hat Voiding Methods Bedside Commode Laboratory Results WBC 6.10 k/cumm (4.4-10.8) 05/29/19 07:36 RBC 4.39 m/cumm (4.00-5.20) 05/29/19 07:36 Hgb 12.3 g/dL (12.0-15.5) 05/29/19 07:36 Hct 36.7 % (36.0-46.0) 05/29/19 07:36 MCV 83.6 fL (80-95) 05/29/19 07:36 MCH 28.0 pg (27.0-33.0) 05/29/19 07:36 MCHC 33.5 g/dL (32.0-36.0) 05/29/19 07:36 RDW 12.8 % (11.7-14.6) 05/29/19 07:36 Plt Count 243 x1000/uL (130-400) 05/29/19 07:36 MPV 9.8 fL (8.0-11.0) 05/29/19 07:36 Immature Gran % 0.1 % 05/28/19 20:00 Neutrophils % 59.3 05/28/19 20:00 Lymphocytes % 32.7 05/28/19 20:00 Monocytes % 5.3 05/28/19 20:00 Eosinophils % 2.3 05/28/19 20:00 Basophils % 0.3 05/28/19 20:00 Absolute Neutrophils 4.66 k/cumm (1.2-6.7) 05/28/19 20:00 Absolute Lymphocytes 2.57 k/cumm (1.2-3.4) 05/28/19 20:00 Absolute Monocytes 0.42 k/cumm (0.11-0.7) 05/28/19 20:00 Absolute Eosinophils 0.18 k/cumm (0.0-0.7) 05/28/19 20:00 Absolute Basophils 0.02 k/cumm (0.0-0.2) 05/28/19 20:00 Sodium 141 mmol/L (136-145) 05/29/19 07:36 Potassium 4.1 mmol/L (3.5-5.1) 05/29/19 07:36 Chloride 106 mmol/L (98-107) 05/29/19 07:36 Carbon Dioxide 27.5 mmol/L (21.0-32.0) 05/29/19 07:36 Anion Gap 7.5 mmol/L (3-11) 05/29/19 07:36 BUN 14 mg/dL (7-18) 05/29/19 07:36 Creatinine 0.64 mg/dL (0.55-1.02) 05/29/19 07:36 Estimated GFR/1.73 m2 >= 60.00 (mL/min/1.73m2) 05/29/19 07:36 Glucose 146 mg/dL (74-106) H 05/29/19 07:36 Calcium 9.1 mg/dL (8.5-10.1) 05/29/19 07:36 Magnesium 2.2 mg/dL (1.8-2.4) 05/28/19 20:00 Total Bilirubin 0.2 mg/dL (0.2-1.0) 05/29/19 07:36 AST 14 U/L (15-37) L 05/29/19 07:36 ALT 22 U/L (14-59) 05/29/19 07:36 Alkaline Phosphatase 98 U/L (46-116) 05/29/19 07:36 Total Protein 6.9 g/dL (6.4-8.2) 05/29/19 07:36 Albumin 3.3 g/dL (3.4-5.0) L 05/29/19 07:36 TSH 1.41 uIU/mL (0.36-3.74) 05/28/19 20:00 Urine Color Yellow (Yellow) 05/28/19:35 Urine Clarity Clear (Clear) 05/28/19:35 Urine pH 5.5 (5-8) 05/28/19 20:35 Ur Specific [place] >= 1.030 (1.005-1.025) H 05/28/19:35 Urine Protein Negative mg/dL (Negative) 05/28/1935 Urine Ketones Negative mg/dL (Negative) 05/28/19:35 Urine Blood Negative (Negative) 05/28/19: Urine Nitrite Negative (Negative) 05/28/19 Urine Bilirubin Negative (Negative) 05/28/1935 Urine Urobilinogen 0.2 EU/dL (Up TO 0.2) 05/28/19 20:35 Ur Leukocyte Esterase Large (Negative) H 05/28/19 20:35 Urine RBC Negative HPF (0-2) 05/28/19:35 Urine WBC >50 HPF (0-5) H 05/28/19 20:35 Ur Epithelial Cells Many HPF (Negative) 05/28/19 20:35 Urine Crystals Negative HPF (Negative) 05/28/19:35 Urine Bacteria Many HPF (Negative) 05/28/19:35 Urine Casts Negative LPF (Negative) 05/28/19 20:35 Urine Mucus Negative (Negative) 05/28/19 20:35 Ur Culture Indicated? No/sq. contamination 05/28/19:35 Urine Glucose Negative mg/dL (Negative) 05/28/19:35
[2019-05-29] MEDS: Normal Saline Flush 10 ML SYR (17:20)
[2019-05-29] MEDS: Dexamethasone 10 MG/ML VIAL IVP (17:20)
[2019-05-29 19:55] VITALS: BP 111/73; PULSE 84; RESP 18; TEMP 37.1; O2SAT 96
[2019-05-29] MEDS: Dexamethasone 4 MG TAB PO (23:03)
[2019-05-29 23:05] VITALS: BP 111/73; PULSE 94; RESP 18; TEMP 36.7; O2SAT 97
[2019-05-30 03:45] VITALS: BP 106/64; PULSE 88; RESP 18; TEMP 37; O2SAT 96
[2019-05-30] MEDS: Levothyroxine 88 MCG TAB PO (06:40)
[2019-05-30] MEDS: Dexamethasone 4 MG TAB PO ×2 (06:40→11:36)
[2019-05-30 07:25] VITALS: BP 103/69; PULSE 69; RESP 16; TEMP 36.8; O2SAT 96
[2019-05-30] MEDS: levETIRAcetam 500 MG TAB 1500 MG PO (09:20)
[2019-05-30] MEDS: Ferrous Gluconate 324 MG TAB PO (09:20)
[2019-05-30] MEDS: Sertraline 25 MG TAB PO (09:21)
[2019-05-30] MEDS: Ascorbic Acid 500 MG TAB PO (09:21)
[2019-05-30] MEDS: Omeprazole 20 MG CAPCR PO (09:21)
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
--- NOTE | 2019-05-30 11:17 | PTTR_ITS ---
Date of service: 05/30/19 Time of Service: 11:17 PT Notes Visit Reasons: HEAD INJURY,TIA,SEIZURE DISORDER WITH RECURRENT ME 05/30/2019 SUBJECTIVE: Pt stating she feels much better today. She is less tired. OBJECTIVE: Supine in bed. Agreeable to PT treatment. TRANSFERS Supine to sit: Min A Sit to supine: SBA Sit to stand: CGA Stand to sit: CGA GAIT Device: 4WW Weight bearing: Full Assist: CGA Distance: 100'x2 Deviation: 1 sit rest break ASSESSMENT: Pt progressed well with her gait distance compared to yesterday. She has good safety awareness with the walker breaks when turning to sit. No LOB or path deviations noted during gait. PLAN: Pt to be discharged home today. See discharge summary for details. 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
--- NOTE | 2019-05-30 11:44 | PDOC.HHF2F ---
Home Health Certification Home Health Certification: 1. Encounter Date and Reason I certify that DHAVAL NAGY was seen by Constanza Proctor on 05/30/19 and that I had a [id number] encounter with this patient that meets the physician face to face encounter requirements. 2. Clinical Findings Supporting Skilled Need and Homebound Status I certify that home health services are medically necessary, include either intermittent snf and/or physical/speech therapy, and that this patient is homebound in that absences from the home require considerable and taxing effort and are infrequent or of short duration, or are attributable to the need to receive medical care. [X] (a) Attached documentation from encounter provides clinical findings supporting skilled need and homebound status (including what assistance patient requires to leave the home). The encounter with the patient was in whole, or in part, for the following medical condition, which is the primary reason for home health care: HEAD INJURY,TIA,SEIZURE DISORDER WITH RECURRENT ME Nursing Home: routine nursing to monitor high risk falls patient following a head injury from a fall. medication oversight d/t medication changes at discharge. symptoms evaluation Physical Therapy: increase strength and endurance and help restore ability to ambulate safely. fall reduction program Homebound: patient is unable to safely leave home unassisted d/t unsteady gait, impaired transfers and negotiate stairs unassisted, patient is at risk for seizures. 3. Certification and Authentication I certify that I composed the above information based on my clinical judgement relating to this patient's medical condition and, if applicable, clinical findings communicated to me by the NPP or inpatient physician who performed the Home Health Referral. All further orders will be obtained through (Community Based Physician - PCP)
[2019-05-30 12:59] VITALS: PULSE 101
[2019-05-30 14:36] LABS: Levetiracetam <2.0 mcg/mL
--- NOTE | 2019-05-30 16:35 | INDS_ITS ---
Date of service: 05/30/19 Time of Service: 16:35 PT Notes Visit Reasons: HEAD INJURY,TIA,SEIZURE DISORDER WITH RECURRENT ME Physical therapy Inpatient Discharge Summary Date: 05/30/2019 Dates of Service: 05/29/2019 and 05/30/2019 This is a clinical summary of care provided on the duration of dates listed above. No charge was made in the completion of this documentation. Referring Doctor: Constanza Proctor N.P. PT Orders: PT CONSULT: gait and balance Precautions: Fall. Standard. Activity as tolerated. 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 Patient was seen in the ED on 05/28/2019 for a head injury following a fall when her left leg gave out. No reports of loss of consciousness. CT of the head showed parafalcine mass in the anterior cranial fossa. Admitted to the hospital for a head injury and transient left leg weakness. PMHX: Medical History (Updated 05/28/19 @ 22:31 by Luis Triplett) Amenorrhea, unspecified (Acute) Asthma (Chronic) Benign schwannoma (Resolved ~07/2018) Cancer of spinal column (Acute) Disability due to neurological disorder (Chronic) GERD (gastroesophageal reflux disease) (Chronic) 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 Hypothyroidism (Chronic) Meningioma, recurrent of brain (Chronic ~2015) Neurofibromatosis II (Chronic) Quadriparesis (muscle weakness) (Chronic ~2003) Seizure disorder (Chronic) Vision loss, right eye (Chronic) Surgical History S/P craniotomy (Chronic) Social History/Home Situation: Pt lives alone in her apartment at [facility] in [place]. Her apartment is handicap-accessible. Equipment Owned/DME: four-wheeled walker Subjective: NT Objective: General Observation: NT Mental Status: NT Pain: NT ROM: Right Upper Extremity: Shoulder Flexion unable to move due to paresis. Shoulder abduction unable to move due to paresis. Elbow flexion WFL. Wrist flexion WFL. Opening and closing of hand WFL. Left Upper Extremity: Shoulder Flexion WFL. Shoulder abduction WFL. Elbow flexion WFL. Wrist flexion WFL. Opening and closing of hand WFL. Right Lower Extremity: Hip flexion WFL. Hip abduction WFL. Knee flexion WFL. A nkle dorsiflexion WFL. Ankle plantarflexion WFL. Left Lower Extremity: Hip flexion WFL. Hip abduction WFL. Knee flexion WFL. Ankle dorsiflexion WFL. Ankle plantarflexion WFL. Strength: Right Upper Extremity: Shoulder flexors 1/5. Shoulder abductors 1/5. Elbow flexors 3-/5. Elbow extensors 3-/5. Management Tech functional. Left Upper Extremity: Shoulder flexors 3-/5. Shoulder abductors 3-/5. Elbow flexors 3+/5. Elbow extensors 3+/5. Management Tech functional. Right Lower Extremity: Hip flexors 3+/5. Hip abductors 3+/5. Knee flexors 4-/5. Knee extensors 4-/5. Ankle dorsiflexors 3-/5. Ankle plantarflexors 4-/5. Left Lower Extremity: Hip flexors 4/5. Hip abductors 4/5. Knee flexors 4/5. Knee extensors 4+/5. Ankle dorsiflexors 3+/5. Ankle plantarflexors 4-/5. Sensation: Intact as to pain and pressure on bilateral lower extremities. Bed Mobility/Transfers: Rolling Min A with HOB 30 degrees Supine to sit Min A with HOB 30 degrees Sit to supine Min A with HOB 30 degrees Sit to stand CGA Stand to sit CGA Bed to chair CGA Chair to bed CGA Gait: Pt was able to ambulate 100 feet x 2 full weight bearing, using a front- wheeled walker with CGA. Balance: Static Sitting: Fair Dynamic Sitting: Fair Static Standing: Fair Dynamic Standing: Fair Assessment: Pt is a 34-year-old female that was seen in the ER on 05/28/2019 for a head injury following a fall when her left leg gave out. No reports of loss of consciousness. CT of the head showed parafalcine mass in the anterior cranial fossa. Admitted to the hospital for a head injury and transient left leg weakness. Pt presents with impairment level findings and functional limitations as listed below. She demonstrates decreased lower extremity and upper extremity strength bilaterally, greater on the right. Presents as an increased fall risk due to recent fall, decreased strength, increased dependence with transfers, and use of an assistive device for ambulation. She would continue to benefit from skilled physical therapy at this time. Goals: Goals X1 week 1. Supine-Sit independent NOT MET 2. Sit-Supine independent NOT MET 3. Sit-Stand independent NOT MET 4. Stand-Sit independent NOT MET 5. Bed-Chair independent NOT MET 6. Chair-Bed independent NOT MET 7. Independent gait on level surface with 4WW for at least 300 feet without report of pain nor dyspnea NOT MET 8. Independent with home exercise program NOT MET 9. Good static and dynamic standing balance/tolerance NOT MET DISCHARGE RECOMMENDATIONS: Discharge pt to home with home health for continued skilled physical therapy services in order to progress mobility level, strength, and balance in preparation for a safe discharge to home. No equipment recommendations at this time. TREATMENT CODE/TIME: NC. Thank you very much for this referral. Myrna Kendrick PT, DPT, CLT [facility] [place], [place]
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
== END 2019-05-30 14:00 | disposition home health service (06) ==
LOC: ER 21:53 → MS 23:34
PROVIDERS: Admitting Provider Family Medicine; Emergency Provider Physician Assistant; PCP Nurse Practitioner; Visit Provider Family Medicine
DX: S09.90XA Unspecified injury of head, initial encounter (principal); S00.81XA Abrasion of other part of head, initial encounter; W01.198A Fall on same level from slipping, tripping and stumbling with subsequent striking against other object, initial encounter; M62.81 Muscle weakness (generalized); G40.909 Epilepsy, unspecified, not intractable, without status epilepticus; D32.0 Benign neoplasm of cerebral meninges; Q85.02 Neurofibromatosis, type 2; G45.8 Other transient cerebral ischemic attacks and related syndromes; R29.818 Other symptoms and signs involving the nervous system; Z60.2 Problems related to living alone; Z87.898 Personal history of other specified conditions; Z98.890 Other specified postprocedural states
CPT/HCPCS: 36415; 70553; 80053; 81025; 85027; 96361; 96374; 97162; 97530; 99217; 99220; 99225; 99285; 70450; 72125; 80177; 81003; 81015; 83735; 84443; 85025; G0378; J1100; J8540

== ENCOUNTER 2019-06-28 10:09 | Emergency (ER) | payer MEDICARE, SELFPAY ==
[2019-06-28] VITALS (30 sets, daily range): BP systolic 115–131; BP diastolic 77–104; PULSE 91–122; RESP 14–23; TEMP 36.4–37.2; O2SAT 75–99
--- NOTE | 2019-06-28 10:15 | DI.RAD_ITS ---
EXAM: XR HIP LT COMPLETE AP PELVIS CLINICAL HISTORY: Fall, pain. TECHNIQUE: 2D digital imaging was performed. COMPARISON: XR hip LT complete AP pelvis from 11/07/2018 FINDINGS: BONES: No acute fracture is present. JOINTS: No dislocation present. SOFT TISSUE: Normal. Note is made of an intrauterine device. IMPRESSION: No acute fracture or dislocation. DATA REPOSITORY: RADIATION DOSE DELIVERED:
--- NOTE | 2019-06-28 10:15 | DI.CT_ITS ---
EXAM: CT HEAD WO CLINICAL HISTORY: Seizure, head injury, Hx of craniotomy,. TECHNIQUE: Imaging Protocol: Axial computed tomography images with coronal and sagittal reformatted images were created and reviewed COMPARISON: CT HEAD CERVICAL SPINE WO from 05/28/2019 MR BRAIN WO/W from 05/29/2019 FINDINGS: Ventricles and Extra axial spaces: Unchanged compared to the prior examination. Hemorrhage: None. Cerebral parenchyma: Unchanged compared to the prior examination. There are again seen several areas of decreased attenuation in the white matter predominantly involving the right cerebral hemisphere. Note is again made of multiple intracranial meningioma causing mass effect on the surrounding struct ures. They appear stable. Midline shift: The mass effect due to the multiple intracranial meningiomas appears stable. Brainstem/Cerebellum: Normal. Calvarium: There is a prior right craniotomy. No acute calvarial fracture. Visualized Paranasal sinuses/Mastoids: Stable opacification of the right sphenoid sinus and posterior right ethmoid air cells. Soft Tissues: Unremarkable. IMPRESSION: 1. No acute intracranial process. 2. Stable sequelae of multiple intracranial meningiomas. 3. The findings were discussed with the emergency department on the date of the examination RADIATION DOSE DELIVERED: DATA REPOSITORY: All CT scans at this facility are submitted to the National Radiology Data Registry (NRDR) Dose Index Registry (DIR) with the [employer] ([employer]). RADIATION OPTIMIZATION: All CT scans at this facility use at least one of these dose optimization te chniques: automated exposure control; mA and/or kV adjustment per patient size (includes targeted exa ms where dose is matched to clinical indication); or iterative reconstruction.
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
[2019-06-28 11:16] LABS: Abs Immature Grans 0.02 k/cumm (0.0-0.09); Absolute Basophil Count 0.01 k/cumm (0.0-0.2); Absolute Eosinophil Count 0.08 k/cumm (0.0-0.7); Absolute Lymphocyte Count 1.42 k/cumm (1.2-3.4); Absolute Monocyte Count 0.41 k/cumm (0.11-0.7); Absolute Neutrophil Count 7.66 k/cumm (1.2-6.7); Basophils % 0.1; Eosinophils % 0.8; HCT 36.9 % (36.0-46.0); HGB 12.4 g/dL (12.0-15.5); Immature Grans % 0.2 %; Lymphocytes % 14.8; Mean Corp. HGB Concentration 33.6 g/dL (32.0-36.0); Mean Corpuscular Hemoglobin 28.4 pg (27.0-33.0); Mean Corpuscular Volume 84.6 fL (80-95); Mean Platelet Volume 9.2 fL (8.0-11.0); Monocytes % 4.3; Neutrophils % 79.8; Platelet Count 262 x1000/uL (130-400); RBC 4.36 m/cumm (4.00-5.20); RBC Distribution Width 13.2 % (11.7-14.6)
[2019-06-28] MEDS: Normal Saline Flush 10 ML SYR IVP (11:20)
[2019-06-28] MEDS: Normal Saline 1,000 ML 150 ML IV (11:28)
[2019-06-28] MEDS: Ondansetron 4 MG/2 ML VIAL IVP (11:29)
[2019-06-28 11:33] LABS: ALT 48 U/L (14-59); AST 23 U/L (15-37); Albumin 3.2 g/dL (3.4-5.0); Alkaline Phosphatase 108 U/L (46-116); Anion Gap 8.6 mmol/L (3-11); BUN 17 mg/dL (7-18); Bilirubin, Total 0.3 mg/dL (0.2-1.0); CO2 28.4 mmol/L (21.0-32.0); CREATININE 0.71 mg/dL (0.55-1.02); Calcium 9.1 mg/dL (8.5-10.1); Chloride 107 mmol/L (98-107); Glucose 122 mg/dL (74-106); Magnesium 1.9 mg/dL (1.8-2.4); Potassium 3.8 mmol/L (3.5-5.1); Sodium 144 mmol/L (136-145); Total Protein 7.1 g/dL (6.4-8.2)
[2019-06-28 11:34] LABS: Creatine Kinase 50 U/L (26-192)
[2019-06-28] MEDS: LORazepam 2 MG/ML VIAL 0.5 MG IVP (11:35)
[2019-06-28] MEDS: Ibuprofen 400 MG TAB PO (12:40)
--- NOTE | 2019-06-28 12:41 | NUR.NOTE ---
waiting for mother to return call Nursing Note:
[2019-06-28 12:42] LABS: Bilirubin Negative (Negative); Blood Trace-intact (Negative); Clarity Clear (Clear); Glucose Negative (Negative); Ketones Negative (Negative); Leukocyte Esterase Negative (Negative); Nitrite Negative (Negative); Specific Gravity 1.025 (1.005-1.025); Urobilinogen 0.2 EU/dL (Up TO 0.2)
[2019-06-28 13:00] LABS: Bacteria Negative HPF (Negative); C & S Indicated? No; Casts Negative LPF (Negative); Crystals Negative HPF (Negative); Epithelial Cells Few HPF (Negative); Mucus Trace (Negative); WBC 0-2 HPF (0-5)
== END 2019-06-28 13:57 | disposition home or self-care (01) ==
LOC: ER 13:00
PROVIDERS: Emergency Provider Registered Nurse Emergency; PCP Nurse Practitioner
DX: S09.8XXA Other specified injuries of head, initial encounter (principal); M25.552 Pain in left hip; W06.XXXA Fall from bed, initial encounter; G40.909 Epilepsy, unspecified, not intractable, without status epilepticus; R51 Headache; R11.2 Nausea with vomiting, unspecified
CPT/HCPCS: 36415; 80053; 82550; 93005; 96361; 96374; 96375; 99285; 70450; 73502; 81003; 81015; 83735; 85025; 93010; J2060; J2405

== ENCOUNTER 2019-06-30 12:44 | Emergency (ER) | payer MEDICARE, SELFPAY ==
[2019-06-30] VITALS (40 sets, daily range): BP systolic 87–124; BP diastolic 64–91; PULSE 85–109; RESP 12–24; TEMP 36.9–37; O2SAT 95–98
--- NOTE | 2019-06-30 13:15 | DI.CT_ITS ---
EXAM: CT PELVIC WO CLINICAL HISTORY: s/p fall, r/o acute fracture TECHNIQUE: COMPARISON: No exams were available for comparison FINDINGS: CT examination of pelvis was performed without contrast administration. No fracture identified invol ving pelvis, hips, or lower spine. No gross soft tissue hematoma seen. No abdominal wall hernia seen. No focal bowel pathology. IUD n oted in place in the uterus. Urinary bladder unremarkable by noncontrast criteria. IMPRESSION: No evidence of acute pelvic fracture.
--- NOTE | 2019-06-30 13:15 | DI.CT_ITS ---
EXAM: CT THORACIC LUMBAR SPINE WO CLINICAL HISTORY: s/p fall, r/o acute fracture TECHNIQUE: The exam was performed without contrast. COMPARISON: No exams were available for comparison FINDINGS: CT examination of the thoracic spine and the lumbar spine was performed utilizing multi slice acquisi tion and multiplanar reconstruction. A soft tissue radiodensity is noted right anterior perispinal a t T1-2 measuring up to about 3 cm in diameter, patient has a history of neurofibromatosis and this i s presumably a neurofibromatosis related lesion. There is no evidence of acute thoracic spine fractu re. There is no evidence of acute lumbar spine fracture. There are areas of atelectasis at the right lung base posteriorly, consolidation not excluded, please correlate clinically. IMPRESSION: No acute fracture identified. Right lung base atelectasis versus consolidation, please correlate clinically.
--- NOTE | 2019-06-30 13:15 | DI.CT_ITS ---
EXAM: CT CERVICAL SPINE WO CLINICAL HISTORY: s/p fall, r/o acute fracture TECHNIQUE: COMPARISON: CT HEAD CERVICAL SPINE WO from 05/28/2019 FINDINGS: CT examination cervical spine was performed utilizing multi slice acquisition multiplanar reconstruct ion. Visualized tracheo laryngeal structures appear intact. There is prior cervical laminectomy fro m C5-T1. There are mild hypertrophic degenerative changes of vertebral endplates and facet joints wi thout evidence of acute fracture or dislocation. Incidental note is made of an incompletely imaged 1 cm fat attenuation lesion the quadrigeminal ciste rn as noted on prior CT of May 30, the patient has a history of neurofibromatosis. IMPRESSION: No evidence of acute cervical spine injury.
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
[2019-06-30] MEDS: Normal Saline 1,000 ML 1000 ML IV ×3 (14:15→18:13)
[2019-06-30] MEDS: Ketorolac 30 MG/ML VIAL IVP (14:15)
[2019-06-30 14:17] LABS: Abs Immature Grans 0.03 k/cumm (0.0-0.09); Absolute Eosinophil Count 0.07 k/cumm (0.0-0.7); Absolute Lymphocyte Count 2.49 k/cumm (1.2-3.4); Absolute Monocyte Count 0.66 k/cumm (0.11-0.7); Absolute Neutrophil Count 4.92 k/cumm (1.2-6.7); Eosinophils % 0.9; HCT 38.4 % (36.0-46.0); Immature Grans % 0.4 %; Lymphocytes % 30.5; Mean Corp. HGB Concentration 33.9 g/dL (32.0-36.0); Mean Corpuscular Hemoglobin 28.4 pg (27.0-33.0); Mean Platelet Volume 9.3 fL (8.0-11.0); Monocytes % 8.1; Neutrophils % 60.1; Platelet Count 336 x1000/uL (130-400); RBC 4.57 m/cumm (4.00-5.20); RBC Distribution Width 12.8 % (11.7-14.6); White Blood Cell Count 8.17 k/cumm (4.4-10.8)
[2019-06-30 14:19] LABS: Bilirubin Negative (Negative); Blood Small (Negative); Clarity Clear (Clear); Glucose Negative (Negative); Ketones Negative (Negative); Leukocyte Esterase Trace (Negative); Nitrite Negative (Negative); Specific Gravity >= 1.030 (1.005-1.025); Urobilinogen 0.2 EU/dL (Up TO 0.2)
[2019-06-30 14:33] LABS: RBC 0-2 HPF (0-2)
[2019-06-30 14:34] LABS: Bacteria Moderate HPF (Negative); Other Cells Negative (Negative)
[2019-06-30 14:35] LABS: ALT 36 U/L (14-59); AST 22 U/L (15-37); Albumin 3.4 g/dL (3.4-5.0); Alkaline Phosphatase 96 U/L (46-116); Anion Gap -0.2 mmol/L (3-11); BUN 14 mg/dL (7-18); Bilirubin, Total 0.5 mg/dL (0.2-1.0); CO2 30.2 mmol/L (21.0-32.0); CREATININE 0.69 mg/dL (0.55-1.02); Calcium 9.4 mg/dL (8.5-10.1); Casts Negative LPF (Negative); Chloride 103 mmol/L (98-107); Crystals Negative HPF (Negative); Glucose 96 mg/dL (74-106); Mucus Negative (Negative); Potassium 3.8 mmol/L (3.5-5.1); Sodium 133 mmol/L (136-145); Total Protein 7.7 g/dL (6.4-8.2)
--- NOTE | 2019-06-30 14:51 | DI.VRAD_ITS ---
PROCEDURE INFORMATION: Exam: CT Cervical Spine Without Contrast Exam date and time: 06/30/2019 2:21 PM Age: 34 years old Clinical indication: Neck pain; Patient HX: Fall TECHNIQUE: Imaging protocol: Computed tomography images of the cervical spine without contrast. Radiation optimization: All CT scans at this facility use at least one of these dose optimization techniques: automated exposure control; mA and/or kV adjustment per patient size (includes targeted exams where dose is matched to clinical indication); or iterative reconstruction. COMPARISON: No relevant prior studies available. FINDINGS: Vertebrae: Vertebral body heights are intact. There is a mild dextroscoliotic curvature versus positional change. Alignment is otherwise maintained. There has been laminectomy at C5, C6, C7 and T1. No acute fracture is identified. Multilevel findings: There is multilevel spondylosis with variable osteophytic encroachment of several neural foramina. CT is not optimal for the evaluation of the discs, neural foramina or spinal canal or cord. No significant spinal stenosis is evident. 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 Vasculature: Atherosclerotic vascular calcifications are noted. Lungs: Minimally included without acute abnormality. Pleural space: No apical pneumothorax is identified. IMPRESSION: 1. No acute fracture or dislocation identified. 2. Postoperative changes and spondylosis as described. The discs and integrity of the cord could be better evaluated by means of MRI as clinically appropriate. 3. 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 Dictated and Authenticated by: John Wisnton MD. Ordering:MONO Santos MD
--- NOTE | 2019-06-30 14:55 | DI.VRAD_ITS ---
PROCEDURE INFORMATION: Exam: CT Pelvis Without Contrast; Skeletal Exam date and time: 06/30/2019 1:24 PM Age: 34 years old Clinical indication: Pelvic pain; Patient HX: Fall TECHNIQUE: Imaging protocol: Computed tomography images of the pelvis without contrast. Exam focused on the skeletal structures. Radiation optimization: All CT scans at this facility use at least one of these dose optimization techniques: automated exposure control; mA and/or kV adjustment per patient size (includes targeted exams where dose is matched to clinical indication); or iterative reconstruction. COMPARISON: No relevant prior studies available. FINDINGS: Appendix: The appendix appears normal. Reproductive: An intrauterine device is noted. No gross adnexal abnormality is apparent, but ultrasound would be more appropriate in this regard. Vasculature: Atherosclerotic vascular calcifications are noted. Bones/joints: No acute fracture or dislocation is identified. The femoral head articular contours are maintained, and the femoral heads appears to be of normal density. Soft tissues: There is no significant soft tissue hematoma. IMPRESSION: No acute fracture or dislocation identified. Dictated and Authenticated by: John Winston MD. Ordering:MONO Santos MD
--- NOTE | 2019-06-30 15:07 | DI.VRAD_ITS ---
PROCEDURE INFORMATION: Exam: CT Thoracic Spine Without Contrast Exam date and time: 06/30/2019 2:31 PM Age: 34 years old Clinical indication: Low back pain; Pain in thoracic spine; Other: Not specified; Patient HX: Fall TECHNIQUE: Imaging protocol: Computed tomography images of the thoracic spine without contrast. Radiation optimization: All CT scans at this facility use at least one of these dose optimization techniques: automated exposure control; mA and/or kV adjustment per patient size (includes targeted exams where dose is matched to clinical indication); or iterative reconstruction. COMPARISON: CR XR thoracic spine complete 11/07/2018 1:40 PM (report not provided) FINDINGS: Vertebrae: There is again a slight S-shaped scoliosis. Alignment is otherwise maintained. Vertebral body heights are intact. There has been laminectomy extending from the cervical spine to the T1 level. Spinal cord: There are small, indeterminate calcifications along the spinal canal. Multilevel findings: There is multilevel facet arthrosis, disc space narrowing and marginal osteophyte formation. CT is not optimal for the evaluation of the discs, neural foramina or spinal canal or cord. No significant spinal stenosis is evident. Other bones/joints: No acute fracture is identified. Lungs: The right lung demonstrates atelectasis and possibly consolidation posteriorly. There is also mild scarring at the apices. Soft tissues: There is a partially calcified, but predominantly fluid density right anterior paraspinal lesion at the T1-2 level, nonspecific. This measures approximately 2.2 x 2.9 x 2.0 cm. Vasculature: Atherosclerotic vascular calcifications are noted. IMPRESSION: 1. No acute fracture or dislocation identified. 2. 2.9 cm partially calcified, predominantly fluid density right anterior paraspinal lesion at the T1-2 level,, further evaluation and/or followup to be determined at time of final read depending on availability of prior imaging and as per institutional protocol. 3. Spondylosis without significant spinal stenosis evident. PROCEDURE INFORMATION: Exam: CT Lumbar Spine Without Contrast Exam date and time: 06/30/2019 2:31 PM Age: 34 years old Clinical indication: Low back pain; Pain in thoracic spine; Other: Not specified; Patient HX: Fall TECHNIQUE: Imaging protocol: Computed tomography images of the lumbar spine without contrast. Radiation optimization: All CT scans at this facility use at least one of these dose optimization techniques: automated exposure control; mA and/or kV adjustment per patient size (includes targeted exams where dose is matched to clinical indication); or iterative reconstruction. COMPARISON: None provided. FINDINGS: Vertebrae: Vertebral body heights are intact. Alignment is maintained. No pars defect is identified. No acute fracture is identified. Multilevel findings: There is multilevel disc space narrowing, facet arthrosis and marginal osteophyte formation with variable narrowing of several neural foramina. CT is not optimal for the evaluation of the discs, neural foramina or spinal canal or cord. There appears to be spinal stenosis at L5-S1. Vasculature: Atherosclerotic vascular calcifications are noted. Soft tissues: There is no significant paraspinal hematoma. The visualized abdominal structures appear grossly acutely unremarkable. IMPRESSION: 1. No acute fracture or dislocation identified. 2. Spondylosis with apparent spinal stenosis at L5-S1. The discs, neural foramina and spinal canal could be better evaluated by means of MRI as clinically appropriate. Dictated and Authenticated by: John Winston MD. Ordering:MONO Santos MD
[2019-06-30 15:25] LABS: Creatine Kinase 109 U/L (26-192)
[2019-06-30 15:34] LABS: Epithelial Cells Many HPF (Negative)
[2019-06-30] MEDS: HYDROmorphone 2 MG/ML VIAL 1 MG IVP (15:35)
[2019-06-30 15:36] LABS: C & S Indicated? No/Sq. Contamination
[2019-06-30 15:42] LABS: TSH (W/Ref FT4) 2.73 uIU/mL (0.36-3.74)
[2019-06-30] MEDS: Cephalexin 500 MG CAP, 2 CAPS/BTL PO (19:22)
[2019-06-30] MEDS: Cephalexin 500 MG CAP PO (19:22)
--- NOTE | 2019-06-30 20:01 | NUR.NOTE ---
Nursing Note:referal copied to caremanagement
--- NOTE | 2019-07-02 11:19 | PDOC.ERCMPRO ---
- If Service Date Differs Date of service: 07/02/19 Time of Service: 11:19 Care Management Progress Note CM is asked by ED provider to send a referral to [facility]. A telephone discussion with Jovany at [facility] reveals that Katherine is already receiving Home Health RN, PT and OT services and was last seen on 06/27/2019.
== END 2019-06-30 21:00 | disposition home or self-care (01) ==
PROVIDERS: Emergency Provider Physician Assistant; PCP Nurse Practitioner
DX: N39.0 Urinary tract infection, site not specified (principal); R53.1 Weakness; W06.XXXA Fall from bed, initial encounter; G40.909 Epilepsy, unspecified, not intractable, without status epilepticus
CPT/HCPCS: 36415; 80053; 81025; 82550; 96361; 96365; 96375; 99284; 72125; 72128; 72131; 72192; 81003; 81015; 84443; 85025; 87086; 99285; J1885; J1953

== ENCOUNTER 2019-08-14 14:41 | Outpatient (CLI) | payer MEDICARE, SELFPAY ==
--- NOTE | 2019-08-14 | DI.MRI_ITS ---
EXAM: MR BRAIN WO/W CLINICAL HISTORY: F/U MULT. INTRACRANIAL TUMORS, S/P RESECTION OF MANY. TECHNIQUE: Multiplanar multisequence MRI was performed. COMPARISON: MR MR BRAIN WO/W from 05/29/2019 FINDINGS: MR of the brain was performed according to the usual protocol with additional post contrast axial and coronal T1 weighted imaging. Examination is compared with most recent prior study of 05/29/2019. T he patient has known multiple neural tumors with a history of neurofibromatosis. Note is again made of multiple lobulated enhancing lesions including anterior and posterior falcine l esions, lesions of right internal auditory canal, left temporal fossa, right IAC region, and a large multi component right temporal/cavernous/orbital lesion. Quadrigeminal cistern lesion is also again noted. In comparison with the prior study there has been little interval change in appearance of these lesio ns. Slight interval increase in size of quadrigeminal cistern lesion by 1-2 millimeters is noted. S light interval increase in size of right cerebellopontine angle lesion by 1-2 millimeters is also not ed. No overall change in cerebral deformity, post surgical changes again noted predominantly right f rontal. IMPRESSION: No gross interval change in appearance of numerous intracranial lesions as described above. Slight i nterval increase in size of quadrigeminal cistern lesion and right cerebellopontine angle lesion, by 1-2 millimeters. DATA REPOSITORY:
[2019-08-14 16:05] LABS: Absolute Basophil Count 0.01 k/cumm (0.0-0.2); Absolute Eosinophil Count 0.25 k/cumm (0.0-0.7); Absolute Lymphocyte Count 1.91 k/cumm (1.2-3.4); Absolute Monocyte Count 0.33 k/cumm (0.11-0.7); Absolute Neutrophil Count 4.08 k/cumm (1.2-6.7); Basophils % 0.2; Eosinophils % 3.8; HCT 36.3 % (36.0-46.0); HGB 12.5 g/dL (12.0-15.5); Mean Corp. HGB Concentration 34.4 g/dL (32.0-36.0); Mean Corpuscular Hemoglobin 28.7 pg (27.0-33.0); Mean Corpuscular Volume 83.4 fL (80-95); Mean Platelet Volume 9.4 fL (8.0-11.0); Platelet Count 218 x1000/uL (130-400); RBC 4.35 m/cumm (4.00-5.20); RBC Distribution Width 13.7 % (11.7-14.6); White Blood Cell Count 6.58 k/cumm (4.4-10.8)
[2019-08-14 16:14] LABS: ALT 37 U/L (14-59); AST 18 U/L (15-37); Albumin 3.6 g/dL (3.4-5.0); Alkaline Phosphatase 127 U/L (46-116); BUN 15 mg/dL (7-18); Bilirubin, Total 0.3 mg/dL (0.2-1.0); CREATININE 0.77 mg/dL (0.55-1.02); Calcium 8.9 mg/dL (8.5-10.1); Chloride 103 mmol/L (98-107); Glucose 99 mg/dL (74-106); Potassium 3.9 mmol/L (3.5-5.1); Sodium 139 mmol/L (136-145); TROPONIN-I 9.6 ug/mL (4.0-12.0); TSH 1.38 uIU/mL (0.36-3.74); Total Protein 7.1 g/dL (6.4-8.2)
[2019-08-14] MEDS: Normal Saline Flush 10 ML SYR IVP (16:49)
[2019-08-14] MEDS: Gadoterate meglumine 20 ML VIAL 12 ML IVP (16:50)
== END 2019-08-14 15:01 ==
PROVIDERS: Psychiatry & Neurology Neurocritical Care; PCP Family Medicine; Visit Provider Neurological Surgery
DX: G40.209 Localization-related (focal) (partial) symptomatic epilepsy and epileptic syndromes with complex partial seizures, not intractable, without status epilepticus (principal); Z51.81 Encounter for therapeutic drug level monitoring; Z79.899 Other long term (current) drug therapy; D32.0 Benign neoplasm of cerebral meninges; R90.89 Other abnormal findings on diagnostic imaging of central nervous system; D50.9 Iron deficiency anemia, unspecified; K21.9 Gastro-esophageal reflux disease without esophagitis
CPT/HCPCS: 36415; 70553; 80053; 80156; 80177; 84443; 85025

== ENCOUNTER 2019-09-22 13:48 | Emergency (ER) | payer MEDICARE, MEDICAID, SELFPAY ==
[2019-09-22 13:50] VITALS: BP 103/66; PULSE 108; RESP 20; TEMP 36.8; O2SAT 96
[2019-09-22 14:55] LABS: Bilirubin Negative (Negative); Blood Negative (Negative); Clarity Clear (Clear); Glucose Negative (Negative); Ketones Negative (Negative); Leukocyte Esterase Negative (Negative); Nitrite Negative (Negative); Specific Gravity 1.015 (1.005-1.025); Urobilinogen 0.2 EU/dL (Up TO 0.2)
[2019-09-22 15:48] LABS: HCT 39.8 % (36.0-46.0); HGB 13.8 g/dL (12.0-15.5); Mean Corp. HGB Concentration 34.7 g/dL (32.0-36.0); Mean Corpuscular Hemoglobin 28.8 pg (27.0-33.0); Mean Corpuscular Volume 82.9 fL (80-95); Mean Platelet Volume 9.3 fL (8.0-11.0); Platelet Count 227 x1000/uL (130-400); RBC Distribution Width 12.8 % (11.7-14.6); White Blood Cell Count 8.25 k/cumm (4.4-10.8)
[2019-09-22 16:05] LABS: ALT 46 U/L (14-59); AST 24 U/L (15-37); Albumin 3.7 g/dL (3.4-5.0); Alkaline Phosphatase 135 U/L (46-116); Anion Gap 8.3 mmol/L (3-11); BUN 14 mg/dL (7-18); Bilirubin, Total 0.3 mg/dL (0.2-1.0); CO2 28.7 mmol/L (21.0-32.0); CREATININE 0.88 mg/dL (0.55-1.02); Calcium 9.3 mg/dL (8.5-10.1); Chloride 102 mmol/L (98-107); Glucose 102 mg/dL (74-106); Sodium 139 mmol/L (136-145); Total Protein 7.1 g/dL (6.4-8.2)
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
[2019-09-22 17:29] VITALS: BP 100/68; PULSE 89; RESP 18; TEMP 36.6; O2SAT 99
== END 2019-09-22 17:30 | disposition home or self-care (01) ==
PROVIDERS: Emergency Provider Student in an Organized Health Care Education/Training Program; PCP Family Medicine
DX: R35.0 Frequency of micturition (principal); G40.909 Epilepsy, unspecified, not intractable, without status epilepticus
CPT/HCPCS: 36415; 51701; 80053; 85027; 99283; 81003

== ENCOUNTER 2019-09-28 12:25 | Outpatient (REF) | payer MEDICARE, SELFPAY ==
[2019-09-29 17:21] LABS: COVID-19 RT-PCR Result Not Detected ((See Note))
== END 2019-09-28 12:45 ==
LOC: LBN 12:25
PROVIDERS: PCP Family Medicine; Visit Provider Family Medicine
DX: Z03.818 Encounter for observation for suspected exposure to other biological agents ruled out (principal)
CPT/HCPCS: U0003

== ENCOUNTER 2019-10-15 13:59 | Inpatient (IN) | payer MEDICARE, MEDICAID, SELFPAY ==
[2019-10-15] VITALS (7 sets, daily range): BP systolic 97–113; BP diastolic 50–97; PULSE 78–98; RESP 14–18; TEMP 36.3–37.2; O2SAT 98–100
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
--- NOTE | 2019-10-15 14:45 | DI.CT_ITS ---
EXAM: CT ABDOMEN PELVIS W CLINICAL HISTORY: lower abd pain/lower back pain TECHNIQUE: COMPARISON: CR XR thoracic spine complete from 11/07/[address] PELVIC WO from 06/30/2019 FINDINGS: CT examination of the abdomen and pelvis was performed with bolus infusion of 100 cc of Omnipaque 350 . Initial images did not include the entire liver due to marked elevation of the diaphragm the right . And additional scan was obtained to include the entire liver. Marked diaphragm elevation noted on the right, probably unchanged from prior radiographs September 2018. There is mild atelectasis at the right lung base. The liver and spleen are unremarkable in appearanc e. Gallbladder and bile ducts are CT. Pancreas is unremarkable. Adrenals appear normal bilaterally . Kidneys are unremarkable with no urinary tract calcification or obstruction. Abdominal aorta is of normal diameter. 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 Left renal artery unremarkable except for some mild atheromatous calcification. Remainde r of the major visceral branches are unremarkable. No significant abdominal wall hernia seen. Appendix is normal. No evidence of diverticulitis or bow el obstruction. No abdominal or pelvic adenopathy. There is an IUD in place. Probable nabothian cysts noted. No gross ovarian pathology as visualized. No free fluid in the pelvis. IMPRESSION: No evidence of acute intra-abdominal process.
[2019-10-15] MEDS: Ketorolac 30 MG/ML VIAL IVP (15:00)
[2019-10-15] MEDS: Normal Saline 1,000 ML 1000 ML IV ×2 (15:00→17:21)
[2019-10-15 15:36] LABS: Abs Immature Grans 0.01 k/cumm (0.0-0.09); Absolute Basophil Count 0.01 k/cumm (0.0-0.2); Absolute Lymphocyte Count 2.04 k/cumm (1.2-3.4); Absolute Monocyte Count 0.34 k/cumm (0.11-0.7); Absolute Neutrophil Count 3.14 k/cumm (1.2-6.7); Basophils % 0.2; Eosinophils % 1.8; HCT 36.4 % (36.0-46.0); HGB 12.6 g/dL (12.0-15.5); Immature Grans % 0.2 %; Lymphocytes % 36.2; Mean Corp. HGB Concentration 34.6 g/dL (32.0-36.0); Mean Corpuscular Hemoglobin 29.2 pg (27.0-33.0); Mean Corpuscular Volume 84.3 fL (80-95); Mean Platelet Volume 9.5 fL (8.0-11.0); Neutrophils % 55.6; Platelet Count 214 x1000/uL (130-400); RBC 4.32 m/cumm (4.00-5.20); RBC Distribution Width 12.4 % (11.7-14.6); White Blood Cell Count 5.64 k/cumm (4.4-10.8)
[2019-10-15 15:47] LABS: ALT 37 U/L (14-59); AST 22 U/L (15-37); Albumin 3.3 g/dL (3.4-5.0); Alkaline Phosphatase 114 U/L (46-116); Anion Gap 5.8 mmol/L (3-11); BUN 11 mg/dL (7-18); Bilirubin, Total 0.2 mg/dL (0.2-1.0); CO2 29.2 mmol/L (21.0-32.0); Calcium 8.7 mg/dL (8.5-10.1); Chloride 105 mmol/L (98-107); Glucose 95 mg/dL (74-106); Potassium 4.5 mmol/L (3.5-5.1); Sodium 140 mmol/L (136-145); Total Protein 6.2 g/dL (6.4-8.2)
[2019-10-15 16:27] LABS: PTT Activated 22.6 sec (21.0-31.4); Prothrombin Time 10.2 sec (9.3-11.0)
[2019-10-15] MEDS: Normal Saline - Diluent 50 ML VIAL IV (16:59)
[2019-10-15] MEDS: Normal Saline Flush 10 ML SYR IVP (17:00)
[2019-10-15] MEDS: Omnipaque 350 MG/ML 100 ML BTL IJ (17:00)
[2019-10-15 17:48] LABS: Bilirubin Negative (Negative); Blood Small (Negative); Clarity Clear (Clear); Glucose Negative (Negative); Ketones Negative (Negative); Leukocyte Esterase Trace (Negative); Nitrite Negative (Negative); Urobilinogen 0.2 EU/dL (Up TO 0.2); pH 6.5 (5-8)
--- NOTE | 2019-10-15 17:48 | DI.VRAD_ITS ---
Addendum created by Jelani King MD on 10/15/2019 6:36:06 PM EDT Addendum: Additional images were transmitted. Only the the liver was reviewed as there is no order for CT chest. No mass in the liver. There are opacities in the right lower lobe which may represent atelectasis or pneumonia. Small right pleural effusion. Initial report created on 10/15/2019 5:47:31 PM EDT PROCEDURE INFORMATION: Exam: CT Abdomen And Pelvis With Contrast Exam date and time: 10/15/2019 5:00 PM Age: 34 years old Clinical indication: Localized; Patient HX: Lower abdominal pain / lower back pain TECHNIQUE: Imaging protocol: Computed tomography of the abdomen and pelvis with intravenous contrast. COMPARISON: CT PELVIC WO 06/30/2019 2:23 PM FINDINGS: Pleural space: Small left pleural effusion Liver: A large portion of the liver is not visualized due to the fact that it is under the right hemidiaphragm. Gallbladder and bile ducts: Normal. No calcified stones. No ductal dilation. Pancreas: Normal. No ductal dilation. Spleen: Normal. No splenomegaly. Adrenals: Normal. No mass. Kidneys and ureters: Normal. No hydronephrosis. Stomach and bowel: Rectum is distended 6 cm with fecal material consistent with constipation. Bowel wall thickening in the right colon may represent colitis in the appropriate clinical setting. . Appendix: Normal appendix Intraperitoneal space: Unremarkable. No free air. No significant fluid collection. Vasculature: Unremarkable. No abdominal aortic aneurysm. Lymph nodes: Unremarkable. No enlarged lymph nodes. Bladder: Unremarkable as visualized. Reproductive: 2.4 cm Cystic structures in the cervix. Series 4, image 71. Differential includes nabothian cysts and infection. IUD in the uterus Bones/joints: Unremarkable. No acute fracture. Soft tissues: Unremarkable. Other findings: Elevated right hemidiaphragm. IMPRESSION: 1. A large portion of the liver is not visualized due to the fact that it is under the right hemidiaphragm. 2. 2.4 cm Cystic structures in the cervix. Series 4, image 71. Differential includes nabothian cysts and infection. 3. Bowel wall thickening in the right colon may represent colitis in the appropriate clinical setting. . Dictated and Authenticated by: Jelani King MD. Ordering:MONO Santos MD
[2019-10-15 18:00] LABS: Bacteria Rare HPF (Negative); C & S Indicated? Yes; Crystals Negative HPF (Negative); Epithelial Cells Moderate HPF (Negative); Mucus Negative (Negative); RBC 0-2 HPF (0-2); WBC 0-2 HPF (0-5)
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
[2019-10-15] MEDS: clonazePAM 1 MG TAB PO (23:32)
[2019-10-15] MEDS: Ferrous Gluconate 324 MG TAB PO (23:33)
[2019-10-15] MEDS: Ascorbic Acid 500 MG TAB PO (23:33)
[2019-10-16 04:00] VITALS: BP 92/62; PULSE 85; RESP 17; TEMP 37.1; O2SAT 96
[2019-10-16] MEDS: Levothyroxine 88 MCG TAB PO (06:39)
[2019-10-16 08:28] VITALS: BP 90/61; PULSE 90; RESP 17; TEMP 36.4; O2SAT 98
[2019-10-16] MEDS: Multivitamin w/Minerals TAB 2 TAB PO (08:36)
[2019-10-16] MEDS: levETIRAcetam 500 MG TAB 1500 MG PO (08:36)
[2019-10-16] MEDS: Ferrous Gluconate 324 MG TAB PO ×2 (08:37→19:50)
[2019-10-16] MEDS: Ascorbic Acid 500 MG TAB PO ×2 (08:37→19:50)
[2019-10-16] MEDS: Docusate Sodium 100 MG CAP PO (08:37)
[2019-10-16] MEDS: carBAMazepine 200 MG TAB PO ×2 (08:37→19:50)
--- NOTE | 2019-10-16 08:53 | INITIAL_ITS ---
- If Service Date Differs Date of service: 10/16/19 Time of Service: 08:53 Care Management Initial Assess REASON FOR HOSPITALIZATION:: Inability to care for self PAST MEDICAL HISTORY/PAST SURGICAL HISTORY:: Medical: disability due to neurological disorder, vision loss R eye, meningioma-recurrent of brain, neurofibromatosis II, H/O sarcoma, asthma, quadriparesis (muscle wealness), seizure disorder, hypothyroidism, GERD, erysipelas (acute), benign schwannoma. Surgical: s/p craniotomy PREVIOUS FUNCTIONAL STATUS/SOCIAL/FAMILY SUPPORTS:: She is 33 yo woman who lives alone in an apt at the [facility] in [place]. Her primary family support is her mother Margie Barnett. She is and has complex medical history. At baseline she is able to live independently with support services and a handicap apartment at the [facility]. 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 Has services from [facility] and [facility]. CURRENT FUNCTIONAL STATUS:: Katherine is lying in bed with the lights off she states she has been feeling pretty tired. Katherine states she cannot stay at her friends home anymore and that his mom cannot take care of her. She does still have the apartment at [facility] and feels that if she was able to have rehab may be able to return there. She states she has been a two assist for all care since her fall in June. Katherine does not have bed bug exterminator medicaid however she does have community medicaid and may qualify for bed bug exterminator at this point. She has agreed to referrals to the [facility]. ADVANCE DIRECTIVES:: None on file forms offered and assistance with completion. Has patient been provided with info about the portal/API?: Yes Did the patient sign up for the portal?: No CODE STATUS:: Full Code INSURANCE COVERAGE / FINANCIAL ISSUES:: Medicare and Medicaid CURRENT HOME/COMMUNITY SERVICES/EQUIPMENT:: [facility], She has handicap apt with grab bars, tub seat, HH shower, and indepednently and 4WW. Home health nursing and PT PRIMARY CARE PHYSICIAN:: Anupama Black NP POTENTIAL DISCHARGE NEEDS:: Referral and placement at a short term rehab facility PATIENT/FAMILY EDUCATION NEEDS:: Discharge education, limitations and follow up plan of care including ask me three and self management. [facility] review nursing homes in [place] and offer options. Katherine has chose the local two the [facility]. ANTICIPATED BARRIERS TO DISCHARGE:: Referral to [facility] and the [facility] accepting facility and bed bug exterminator medicaid would be her barriers for bed bug exterminator placement. Her goal is to have short term and return to her apartment. TRANSPORTATION:: Pending disposition PLAN:: Katherine will be discharged to accepting facility once a bed offer has been made and she is medically clear. CM to continue to assess for ongoing discharge needs and support disposition.
[2019-10-16] MEDS: Docusate Sodium 100 MG/10 ML CUP PO (09:19)
--- NOTE | 2019-10-16 10:05 | IN_ITS ---
Date of service: 10/16/19 Time of Service: 10:05 PT Notes Visit Reasons: INABILITY TO CARE FOR SELF Physical Therapy Inpatient Initial Evaluation Date: 10/20/2019 Referring Doctor: Luis Olvera MD PT Orders: PT CONSULT: Eval/treat Precautions: Fall. Standard. Activity as tolerated. Seizure-prone. 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 They have had a ramp built at the entrance of the house where they wheel her in and out as needed using a wheelchair. She states that since her fall in the same month, she has had significant difficulty with moving about in the house. She was receiving home health PT services at home. It was the ELECTRONIC SECURITY TECHNICIAN who was working with her at home who urged her to call her primary doctor as her blood pressure dipped down significantly which resulted to this most recent admission. Katherine reports that she has not been walking for the past 3-1/2 months and that 2 people have been helping her stand up and transfer onto the commode or to a bedside chair. Equipment Owned/DME: 4 wheeled walker, bedside commode, wheelchair Subjective: Katherine reports 5-6/10 pain in her left hip. She goes on to explain that she stayed on the floor after having a seizure in June of this year which caused her to roll off the bed and hit her head against the lamp before falling between the bed and the wall. She explains that she broke that hip before and has been hurting her and limiting her ability to move since then. She continues to report being weak and is not at all confident about standing up and walking without adequate assistance for this consult. She was wondering when her next dose of Keppra will be as her last one was last night which Nurses Yesenia and Malcom were made aware about. Objective: General Observation: Dressing over her right frontal parietal area. IV access open in the right UE. Right ptosis. Mildly lethargic. Increased tendency to lean on the left side. Mental Status: Alert and oriented x4 Pain: Reports 5?6/10 in the right hip at rest and and movement ROM: Right Upper Extremity: Shoulder Flexion about 10 to 15 degrees. Shoulder abduction about 10 to 15 degrees. Elbow flexion WFL. Wrist flexion about 10 degrees. Opening limited but is able to assume a functional grasp. Left Upper Extremity: Shoulder Flexion WFL. Shoulder abduction WFL. Elbow flexion WFL. Wrist flexion WFL. Opening and closing of hand WFL. Right Lower Extremity: Hip flexion allows 30 degrees. Hip abduction allows 20 degrees. Knee flexion allows 30 degrees. Knee extension -30 degrees. Ankle dorsiflexion allows up to neutral only. Ankle plantarflexion 20 degrees. Left Lower Extremity: Hip flexion allows 30 degrees. Hip abduction allows about 20 degrees. Knee flexion allows 30 degrees. Knee extension -30 degrees ankle dorsiflexion 20 degrees from a fully plantarflexed position. Ankle plantarflexion 20 degrees. Strength: Right Upper Extremity: Shoulder flexors 2-/5. Shoulder abductors 2-/5. Elbow flexors 3/5. Elbow extensors 3+/5. Learning Disabilities Teacher weak but functional. Left Upper Extremity: Shoulder flexors 4/5. Shoulder abductors 4/5. Elbow flexors 4/5. Elbow extensors 4/5. Learning Disabilities Teacher strong. Right Lower Extremity: Hip flexors 3-/5. Hip abductors 3-/5. Knee flexors 3-/5. Knee extensors 3-/5. Ankle dorsiflexors 3-/5. Ankle plantarflexors 3-/5. Left Lower Extremity:Hip flexors 3-/5. Hip abductors3-/5. Knee flexors 3-/5. Knee extensors 3-/5. Ankle dorsiflexors 3-/5. Ankle plantarflexors 3-/5. Sensation: Intact as to pain and pressure on bilateral lower extremities. Bed Mobility/Transfers: Rolling minimal assist of 2 Supine to sit moderate assist of 2 with moderate verbal cueing for correct technique and safety Sit to stand moderate assist of 2 and minimal assist of another with moderate verbal cueing for correct technique and safety Stand to sit moderate assist of 2 and minimal assist of another with moderate verbal cueing for correct technique and safety Bed to chair moderate assist of 2 and minimal assist of another with moderate verbal cueing for correct technique and safety Gait: Patient only tolerates 2 sidesteps +2 step backs from bed to the bedside commode and then another 2 sidesteps and to step backs from the bedside commode to the bedside recliner chair. She requires moderate assist of 2 and minimal assist of a third person to set up equipment and for safety with verbal cues provided to extend both hips and trunk and tactile cues given to maximize the walking of both knees for safety. Balance: Static Sitting: Fair Dynamic Sitting: Poor Static Standing: Poor Dynamic Standing: Poor Special Tests: Mobility Limitations Standardized Measure [facility] 6 clicks Basic Mobility Inpatient Short Form: Raw Score: 9 CMS Score: 81% Informed Consent/Education: Patient instructed in purpose of PT consult and plan of care. Assessment: Harmony demonstrates significant functional mobility decline requiring extensive assistance with bed mobility and transfer task performance. She has not ambulated for over 3 months now and will require [facility] facility placement in order to work on gradually progressing mobility level to increase safety and reduce fall risk. She has residual BUE/LE weakness with the right more affected than the left. She has ongoing perceptual deficit resulting in limited ability to estimate distance (dysmetria) which will require assistance with all transfer performance. Patient is seizure-prone and has been on chronic anti-seizure medication. Patient presents with clinical signs and symptoms consistent with current/admitting diagnoses that have resulted to mobility limitations, gait instability, generalized weakness, and impairment of motor control as demonstrated by the following impairment level findings: 1. Decreased strength to B UEs/LE major muscle groups with the R >> L 2. Impaired sitting/standing balance 3. Impaired activity tolerance 4. Limitation of joint range of motion in multiple B UE/LE joints Impairments are contributing to the following functional limitations: 1. Dependent bed mobility skills 2. Increased dependence with transfers 3. Inability to safely ambulate without assistive device and physical assistan ce 4. Increase completion time for mobility ADL performance 5. Increased fall risk 6. Inability to negotiate steps alone safely Patient is assessed as a 10168 high complexity based on the following: History: 34-year-old female with impairment level findings, functional limitations, and past medical history as indicated above Examination: Demonstrable impairment in strength, balance, and mobility level with underlying impairments and functional limitations as documented above Presentation: Evolving Decision Makin high complexity Goals: Goals X1 week 1. Supine-Sit minimal assist of 2 2. Sit-Supine minimal assist of 2 3. Sit-Stand minimal assist of 2 4. Stand-Sit minimal assist of 2 5. Bed-Chair minimal assist of 2 6. Chair-Bed minimal assist of 2 7. Moderate assist of to gait on level surface with use of least restrictive device for at least 5 feet without report of pain nor dyspnea 8. Fair static and dynamic standing balance/tolerance Plan of Care/Treatment Plan: 1-2x/day, 7 days/week x 1 week. Plan of care has been reviewed with the ELECTRONIC SECURITY TECHNICIAN providing the service under Physical Therapy direction. Initiate Physical Therapy intervention for strengthening, bed mobility, transfers, gait, stairs, balance training, use of assistive device. DISCHARGE RECOMMENDATIONS: Patient will benefit from [facility] facility placement for continued skilled physical therapy services in order to progress mobility level, strength, and balance in preparation for a safe discharge to home. TREATMENT CODE/TIME: 02594 x 28 minutes beginning at 10:05 AM. Thank you for the opportunity to participate in the care of this patient. Myrna Kendrick PT, DPT, CLT [facility] [place], [place]
--- NOTE | 2019-10-16 11:55 | PT.INTREAT ---
Date of service: 10/16/19 Time of Service: 11:55 PT Notes Visit Reasons: INABILITY TO CARE FOR SELF Physical Therapy Inpatient Treatment Note Date: 10/16/2019 Referring Doctor: Luis Olvera MD PT Orders: PT CONSULT: Eval/treat Precautions: Fall. Standard. Activity as tolerated. Seizure-prone. Subjective: Agreeable to a second session today to assist with bed>bedside commode>bedside chair transfers. Objective: General Observation: Dressing over her right frontal parietal area. IV access open in the right UE. Right ptosis. Mildly lethargic. Increased tendency to lean on the left side. Mental Status: Alert and oriented x4 Pain: Reports 5?6/10 in the right hip at rest and and movement Bed Mobility/Transfers: Rolling minimal assist of 2 Supine to sit moderate assist of 2 with moderate verbal cueing for correct technique and safety Sit to stand moderate assist of 2 and minimal assist of another with moderate verbal cueing for correct technique and safety Stand to sit moderate assist of 2 and minimal assist of another with moderate verbal cueing for correct technique and safety Bed to chair moderate assist of 2 and minimal assist of another with moderate verbal cueing for correct technique and safety Gait: Patient only tolerates 2 sidesteps +2 step backs from bed to the bedside commode and then another 2 sidesteps and to step backs from the bedside commode to the bedside recliner chair. She requires moderate assist of 2 and minimal assist of a third person to set up equipment and for safety with verbal cues provided to extend both hips and trunk and tactile cues given to maximize the walking of both knees for safety. Assessment: Harmony was evalauted this morning and demonstrates significant functional mobility decline requiring extensive assistance with bed mobility and transfer task performance. She has not ambulated for over 3 months now and will require halfway facility placement in order to work on gradually progressing mobility level to increase safety and reduce fall risk. She has residual BUE/LE weakness with the right more affected than the left. She has ongoing perceptual deficit resulting in limited ability to estimate distance (dysmetria) which will require assistance with all transfer performance. Patient is seizure-prone and has been on chronic anti-seizure medication. Plan of Care/Treatment Plan: 1-2x/day, 7 days/week x 1 week. Plan of care has been reviewed with the FOOD AND NUTRITION SUPERVISOR providing the service under Physical Therapy direction. Initiate Physical Therapy intervention for strengthening, bed mobility, transfers, gait, stairs, balance training, use of assistive device. DISCHARGE RECOMMENDATIONS: Patient will benefit from halfway facility placement for continued skilled physical therapy services in order to progress mobility level, strength, and balance in preparation for a safe discharge to home. TREATMENT CODE/TIME: 28359 x 25 minutes beginning at 11:55 AM.
[2019-10-16] MEDS: levETIRAcetam Oral Solution 100 MG/ML 1500 MG PO ×2 (12:12→19:50)
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
[2019-10-16 14:27] LABS: COVID-19 RT-PCR UVMMC Result Negative (Negative)
--- NOTE | 2019-10-16 14:44 | W.PM.PROGNOT ---
Date of Service Date of service: 10/16/19 Time of Service: 14:44 Assessment and Plan Assessment and plan (1) Bedbound: Status: Chronic Assessment and plan: chronic and deteriorating slowly. continue PT palliative care consult case management following. (2) Hypothyroidism: Status: Chronic Assessment and plan: TSH 1.38 in August 2019. continue home dosing (3) GERD (gastroesophageal reflux disease): Status: Chronic Assessment and plan: stable, continue omeprazole (4) Seizure disorder: Status: Chronic Assessment and plan: no evidence of seizures, continue monitor and home medications case discussed with Dr Amanda who is in agreement. Subjective Subjective Patient reports: no new complaints, tolerating liquids well, tolerating a regular diet, voiding w/o difficulty and afebrile Exam Const General: cooperative, comfortable, frail appearing and ill appearing chronically Nutritional Appearance: thin Orientation: alert, awake and oriented x3 HENMT Head: scalp lesion (bandaid right forehead) Resp Effort & Inspection: normal respiratory effort Auscultation: clear to auscultation bilaterally and diminished lung sounds (bases) bilaterally Cardio Rate: regular rate Rhythm: regular rhythm GI Inspection: normal to inspection Palpation: soft Auscultation: normal bowel sounds Neuro General: patient alert, patient awake and patient oriented x3 Extrem General: normal to inspection and full ROM Objective Objective Clinical Data: Abnormal lab results 10/15/19 10/15/19 Range/Units 15:25 17:33 Total Protein 6.2 L (6.4-8.2) g/dL Albumin 3.3 L (3.4-5.0) g/dL Urine Blood Small H (Negative) Ur Leukocyte Esterase Trace H (Negative) Vital Signs Temperature 36.4 C L 10/16/19 08:28 Temperature Source Tympanic 10/16/19 08:28 Pulse 90 10/16/19 08:28 Pulse Rhythm Regular 10/16/19 09:06 Respiratory Rate 17 10/16/19 08:28 Respiratory Effort 10/16/19 09:06 Respiratory Depth Normal 10/16/19 09:06 Respiratory Pattern Normal 10/16/19 09:06 Blood Pressure 90/61 L 10/16/19 08:28 Blood Pressure Position Supine 10/15/19 14:00 Pulse Oximetry 98 10/16/19 08:28 Oxygen Delivery Method Room Air 10/16/19 08:28 Oxygen Flow Rate 0 10/16/19 08:28 Pain Level 0 10/16/19 12:10 Comment 10/16/19 12:10 Intake & Output 10/15/19 10/16/19 10/16/19 23:59 11:59 23:59 Intake Total 1999 240 / 240 Output Total 300 / 500 200 / 500 Balance 1999 -60 / -260 -200 / -260 Weight 66.678 kg Intake: IV 1999 Oral 240 / 240 Output: Urine 300 / 500 200 / 500 Other: Urine Color Yellow Yellow Urine Appearance Clear Clear Urine Odor Normal None Comment Void x1 in the bedside commode. Briefs were changed. One void in brief Stool Size Moderate Stool Characteristics Hard Brown Green Voiding Methods Bedside Commode Incontinent Laboratory Results WBC 5.64 k/cumm (4.4-10.8) 10/15/19 15:25 RBC 4.32 m/cumm (4.00-5.20) 10/15/19 15:25 Hgb 12.6 g/dL (12.0-15.5) 10/15/19 15:25 Hct 36.4 % (36.0-46.0) 10/15/19 15:25 MCV 84.3 fL (80-95) 10/15/19 15:25 MCH 29.2 pg (27.0-33.0) 10/15/19 15:25 MCHC 34.6 g/dL (32.0-36.0) 10/15/19 15:25 RDW 12.4 % (11.7-14.6) 10/15/19 15:25 Plt Count 214 x1000/uL (130-400) 10/15/19 15:25 MPV 9.5 fL (8.0-11.0) 10/15/19 15:25 Immature Gran % 0.2 % 10/15/19 15:25 Neutrophils % 55.6 10/15/19 15:25 Lymphocytes % 36.2 10/15/19 15:25 Monocytes % 6.0 10/15/19 15:25 Eosinophils % 1.8 10/15/19 15:25 Basophils % 0.2 10/15/19 15:25 Absolute Neutrophils 3.14 k/cumm (1.2-6.7) 10/15/19 15:25 Absolute Lymphocytes 2.04 k/cumm (1.2-3.4) 10/15/19 15:25 Absolute Monocytes 0.34 k/cumm (0.11-0.7) 10/15/19 15:25 Absolute Eosinophils 0.10 k/cumm (0.0-0.7) 10/15/19 15:25 Absolute Basophils 0.01 k/cumm (0.0-0.2) 10/15/19 15:25 PT 10.2 sec (9.3-11.0) 10/15/19 15:50 INR 1.0 (0.9-1.1) 10/15/19 15:50 APTT 22.6 sec (21.0-31.4) 10/15/19 15:50 Sodium 140 mmol/L (136-145) 10/15/19 15:25 Potassium 4.5 mmol/L (3.5-5.1) 10/15/19 15:25 Chloride 105 mmol/L (98-107) 10/15/19 15:25 Carbon Dioxide 29.2 mmol/L (21.0-32.0) 10/15/19 15:25 Anion Gap 5.8 mmol/L (3-11) 10/15/19 15:25 BUN 11 mg/dL (7-18) 10/15/19 15:25 Creatinine 0.60 mg/dL (0.55-1.02) 10/15/19 15:25 Estimated GFR/1.73 m2 >= 60.00 (mL/min/1.73m2) 10/15/19 15:25 Glucose 95 mg/dL (74-106) 10/15/19 15:25 Calcium 8.7 mg/dL (8.5-10.1) 10/15/19 15:25 Total Bilirubin 0.2 mg/dL (0.2-1.0) 10/15/19 15:25 AST 22 U/L (15-37) 10/15/19 15:25 ALT 37 U/L (14-59) 10/15/19 15:25 Alkaline Phosphatase 114 U/L (46-116) 10/15/19 15:25 Total Protein 6.2 g/dL (6.4-8.2) L 10/15/19 15:25 Albumin 3.3 g/dL (3.4-5.0) L 10/15/19 15:25 Urine Color Yellow (Yellow) 10/15/19 17:33 Urine Clarity Clear (Clear) 10/15/19 17:33 Urine pH 6.5 (5-8) 10/15/19 17:33 Ur Specific [place] 1.010 (1.005-1.025) 10/15/19 17:33 Urine Protein Negative mg/dL (Negative) 10/15/19 17:33 Urine Ketones Negative mg/dL (Negative) 10/15/19 17:33 Urine Blood Small (Negative) H 10/15/19 17:33 Urine Nitrite Negative (Negative) 10/15/19 17: Urine Bilirubin Negative (Negative) 10/15/19 17:33 Urine Urobilinogen 0.2 EU/dL (Up TO 0.2) 10/15/19 17:33 Ur Leukocyte Esterase Trace (Negative) H 10/15/19 17:33 Urine RBC 0-2 HPF (0-2) 10/15/19 17:33 Urine WBC 0-2 HPF (0-5) 10/15/19 17:33 Ur Epithelial Cells Moderate HPF (Negative) 10/15/19 17:33 Urine Crystals Negative HPF (Negative) 10/15/19 17:33 Urine Bacteria Rare HPF (Negative) 10/15/19 17:33 Urine Mucus Negative (Negative) 10/15/19 17:33 Ur Culture Indicated? Yes 10/15/19 17:33 Urine Glucose Negative mg/dL (Negative) 10/15/19 17:33 COVID-19 PCR Negative (Negative) 10/15/19 21:55 Nasopharyn COVID-19 PCR Not Applicable 10/15/19 21:55 Ref Test Perform Site [facility] lab 10/15/19 21:55 Patient ABO/Rh B Positive 10/15/19 15:50 Antibody Screen Negative 10/15/19 15:50
--- NOTE | 2019-10-16 15:42 | PHA.REVIEW ---
Pharmacy Admission Review - Admission Clinical Review (Last Reviewed 10/15/19 @ 19:35 by Luis Olvera MD) Palliative care patient (Acute) History of craniotomy (Acute) tetanus toxoid, adsorbed Allergy (Severe, Verified 10/15/19 14:07) Swelling/Edema morphine Allergy (Mild, Verified 10/15/19 14:07) Skin Rash vecuronium Allergy (Mild, Verified 10/15/19 14:07) Skin Rash vancomycin Adverse Reaction (Intermediate, Verified 10/15/19 14:07) Entire body itch acetaminophen [From Percocet] Adverse Reaction (Mild, Verified 10/15/19 14:07) vomiting adhesive tape Adverse Reaction (Mild, Verified 10/15/19 14:07) oxycodone [From Percocet] Adverse Reaction (Mild, Verified 10/15/19 14:07) vomiting Height 5 ft 4 in Weight 66.678 kg - Renal Dosing Renal Dosing: BUN 11 mg/dL (7-18) 10/15/19 15:25 Creatinine 0.60 mg/dL (0.55-1.02) 10/15/19 15:25 Medications needing adjustments: Reviewed (Crcl ~85.56 mL/min current meds okay) - Anticoagulation Anticoagulation: Hgb 12.6 g/dL (12.0-15.5) 10/15/19 15:25 Hct 36.4 % (36.0-46.0) 10/15/19 15:25 Plt Count 214 x1000/uL (130-400) 10/15/19 15:25 INR 1.0 (0.9-1.1) 10/15/19 15:50 Creatinine 0.60 mg/dL (0.55-1.02) 10/15/19 15:25 DVT Prohphylaxis: N/A Therapeutic Anticoagulation: N/A - Opiate Usage Evaluate Pain Scale/Pains Meds: N/A - Relevant Labs Sodium 140 mmol/L (136-145) 10/15/19 15:25 Potassium 4.5 mmol/L (3.5-5.1) 10/15/19 15:25 Chloride 105 mmol/L (98-107) 10/15/19 15:25 Electrolytes, C-Reactive P, ESR: Reviewed - DM Control DM Control: Glucose 95 mg/dL (74-106) 10/15/19 15:25 Insulin Dosing: N/A - Heart Failure/DE EF%, GLO's, B-Blockers, Diuretics: N/A - BP Control BP Control: Blood Pressure 90/61 Blood Pressure 92/62 If elevated: N/A (hypotensive) - Qtc Review If Elevated: N/A - IV to PO Switch IV Medications: N/A - Home Meds Home Med List reviewed: Reviewed (Carbamazepine may increase the metabolism of clonazepam and ondansetron; consider alternative meds. Sertraline may enhance the antiplatelet effect of ibuprofen; ibuprofen may diminish the therapeutic effect of sertaline. Consider alternatives to NSAIDs in pts taking SSRIs; monitor for evidence of bleeding and diminished antidepressant effects. Separate admin of levothyroxine from ferrous gluconate and multivitamin.) Relevent Home Meds Not ordered & why?: omeprazole and sertraline (no mention of why not ordered, will ask provider) - Current meds Current Medication Order Review: Intervened (discontinued DI meds, and adjusted ibuprofen and zofran so PRN in scheduled and frequency) - Comments Comments/Follow Ups: watch BP and for med changes (addition of 2 home meds)
[2019-10-16 15:50] VITALS: BP 99/66; PULSE 85; RESP 17; TEMP 36.1; O2SAT 96
[2019-10-16] MEDS: Ibuprofen 600 MG TAB PO (17:09)
[2019-10-16 19:36] VITALS: BP 94/65; PULSE 97; RESP 18; TEMP 36.7; O2SAT 98
[2019-10-16] MEDS: Melatonin 3 MG TAB PO (21:40)
[2019-10-16] MEDS: clonazePAM 1 MG TAB PO (21:40)
[2019-10-17 03:25] VITALS: BP 83/55; PULSE 90; RESP 17; TEMP 37.1; O2SAT 96
[2019-10-17] MEDS: Normal Saline Flush 10 ML SYR IVP (04:19)
[2019-10-17] MEDS: Levothyroxine 88 MCG TAB PO (06:05)
[2019-10-17 08:23] VITALS: BP 94/55; PULSE 70; TEMP 37; O2SAT 95
[2019-10-17] MEDS: Docusate Sodium 100 MG/10 ML CUP PO (08:38)
[2019-10-17] MEDS: levETIRAcetam Oral Solution 100 MG/ML 1500 MG PO ×2 (08:39→19:50)
[2019-10-17] MEDS: Omeprazole 20 MG CAPCR PO (08:41)
[2019-10-17] MEDS: Multivitamin w/Minerals TAB 2 TAB PO (08:41)
[2019-10-17] MEDS: carBAMazepine 200 MG TAB PO ×2 (08:41→19:51)
[2019-10-17] MEDS: Ascorbic Acid 500 MG TAB PO ×2 (08:41→19:51)
[2019-10-17] MEDS: Ferrous Gluconate 324 MG TAB PO ×2 (08:41→19:51)
[2019-10-17] MEDS: Sertraline 25 MG TAB PO (08:41)
--- NOTE | 2019-10-17 09:17 | W.PM.PROGNOT ---
Date of Service Date of service: 10/17/19 Time of Service: 09:17 Assessment and Plan Assessment and plan (1) Bedbound: Status: Chronic Assessment and plan: chronic and deteriorating slowly. continue PT palliative care consult case management following. (2) Hypothyroidism: Status: Chronic Assessment and plan: TSH 1.38 in August 2019. continue home dosing (3) GERD (gastroesophageal reflux disease): Status: Chronic Assessment and plan: stable, continue omeprazole (4) Seizure disorder: Status: Chronic Assessment and plan: no evidence of seizures, continue monitor and home medications (5) Discharge planning issues: Status: Inactive Assessment and plan: case management following, referrals placed to LTC. case discussed with Dr Amanda who is in agreement. Subjective Subjective Patient reports: no new complaints and afebrile Interval history since last seen: states she fatigued, otherwise no c/o. eating and drinking. hemodynamically stable with chronically soft blood pressures. Exam Const General: cooperative, comfortable, frail appearing and ill appearing chronically Nutritional Appearance: thin Orientation: alert, awake and oriented x3 [place] Head: scalp lesion (bandaid right forehead) Resp Effort & Inspection: normal respiratory effort Auscultation: clear to auscultation bilaterally and diminished lung sounds (bases) bilaterally Cardio Rate: regular rate Rhythm: regular rhythm GI Inspection: normal to inspection Palpation: soft Auscultation: normal bowel sounds Neuro General: patient alert, patient awake and patient oriented x3 Extrem General: normal to inspection and full ROM Objective Objective Clinical Data: Vital Signs Temperature 37.0 C 10/17/19 08:23 Temperature Source Tympanic 10/17/19 08:23 Pulse 70 10/17/19 08:23 Pulse Rhythm Regular 10/17/19 08:58 Respiratory Rate 17 10/17/19 03:25 Respiratory Effort 10/17/19 08:58 Respiratory Depth Normal 10/17/19 08:58 Respiratory Pattern Normal 10/17/19 08:58 Blood Pressure 94/55 L 10/17/19 08:23 Blood Pressure Position Supine 10/15/19 14:00 Pulse Oximetry 95 10/17/19 08:23 Oxygen Delivery Method Room Air 10/17/19 08:23 Oxygen Flow Rate 0 10/17/19 08:23 Pain Level 0 10/17/19 07:25 Comment 10/17/19 07:25 Intake & Output 07/10/16/19 10/17/19 11:59 23:59 11:59 Intake Total 240 / 360 120 / 360 Output Total 300 / 800 500 / 800 200 / 200 Balance -60 / -440 -380 / -440 -200 / -200 Intake: Oral 240 / 360 120 / 360 Output: Urine 300 / 800 500 / 800 200 / 200 Other: Urine Color Yellow Yellow Straw Urine Appearance Clear Clear Clear Urine Odor Normal Normal Normal Comment Void x1 in the bedside commode. Briefs were changed. inct Void x1 in the bedpan. Menstrual blood noted in the briefs. Briefs were changed. Voiding Methods Bedside Commode Incontinent Bedpan Laboratory Results WBC 5.64 k/cumm (4.4-10.8) 10/15/19 15: RBC 4.32 m/cumm (4.00-5.20) 10/15/19 15:25 Hgb 12.6 g/dL (12.0-15.5) 10/15/19 15: Hct 36.4 % (36.0-46.0) 10/15/19 15: MCV 84.3 fL (80-95) 10/15/19 15:25 MCH 29.2 pg (27.0-33.0) 10/15/19 15: MCHC 34.6 g/dL (32.0-36.0) 10/15/19 15:25 RDW 12.4 % (11.7-14.6) 10/15/19 15:25 Plt Count 214 x1000/uL (130-400) 10/15/19 15:25 MPV 9.5 fL (8.0-11.0) 10/15/19 15:25 Immature Gran % 0.2 % 10/15/19 15:25 Neutrophils % 55.6 10/15/19 15:25 Lymphocytes % 36.2 10/15/19 15:25 Monocytes % 6.0 10/15/19 15:25 Eosinophils % 1.8 10/15/19 15:25 Basophils % 0.2 10/15/19 15:25 Absolute Neutrophils 3.14 k/cumm (1.2-6.7) 10/15/19 15: Absolute Lymphocytes 2.04 k/cumm (1.2-3.4) 10/15/19 15:25 Absolute Monocytes 0.34 k/cumm (0.11-0.7) 10/15/19 15:25 Absolute Eosinophils 0.10 k/cumm (0.0-0.7) 10/15/19 15:25 Absolute Basophils 0.01 k/cumm (0.0-0.2) 10/15/19 15:25 PT 10.2 sec (9.3-11.0) 10/15/19 15:50 INR 1.0 (0.9-1.1) 10/15/19 15:50 APTT 22.6 sec (21.0-31.4) 10/15/19 15:50 Sodium 140 mmol/L (136-145) 10/15/19 15:25 Potassium 4.5 mmol/L (3.5-5.1) 10/15/19 15:25 Chloride 105 mmol/L (98-107) 10/15/19 15:25 Carbon Dioxide 29.2 mmol/L (21.0-32.0) 10/15/19 15:25 Anion Gap 5.8 mmol/L (3-11) 10/15/19 15:25 BUN 11 mg/dL (7-18) 10/15/19 15:25 Creatinine 0.60 mg/dL (0.55-1.02) 10/15/19 15:25 Estimated GFR/1.73 m2 >= 60.00 (mL/min/1.73m2) 10/15/19 15:25 Glucose 95 mg/dL (74-106) 10/15/19 15:25 Calcium 8.7 mg/dL (8.5-10.1) 10/15/19 15:25 Total Bilirubin 0.2 mg/dL (0.2-1.0) 10/15/19 15:25 AST 22 U/L (15-37) 10/15/19 15:25 ALT 37 U/L (14-59) 10/15/19 15:25 Alkaline Phosphatase 114 U/L (46-116) 10/15/19 15:25 Total Protein 6.2 g/dL (6.4-8.2) L 10/15/19 15:25 Albumin 3.3 g/dL (3.4-5.0) L 10/15/19 15:25 Urine Color Yellow (Yellow) 10/15/19 17:33 Urine Clarity Clear (Clear) 10/15/19 17:33 Urine pH 6.5 (5-8) 10/15/19 17:33 Ur Specific [place] 1.010 (1.005-1.025) 10/15/19 17:33 Urine Protein Negative mg/dL (Negative) 10/15/19 17:33 Urine Ketones Negative mg/dL (Negative) 10/15/19 17:33 Urine Blood Small (Negative) H 10/15/19 17:33 Urine Nitrite Negative (Negative) 10/15/19 17:33 Urine Bilirubin Negative (Negative) 10/15/19 17:33 Urine Urobilinogen 0.2 EU/dL (Up TO 0.2) 10/15/19 17:33 Ur Leukocyte Esterase Trace (Negative) H 10/15/19 17:33 Urine RBC 0-2 HPF (0-2) 10/15/19 17:33 Urine WBC 0-2 HPF (0-5) 10/15/19 17:33 Ur Epithelial Cells Moderate HPF (Negative) 10/15/19 17:33 Urine Crystals Negative HPF (Negative) 10/15/19 17:33 Urine Bacteria Rare HPF (Negative) 10/15/19 17:33 Urine Mucus Negative (Negative) 10/15/19 17:33 Ur Culture Indicated? Yes 10/15/19 17:33 Urine Glucose Negative mg/dL (Negative) 10/15/19 17:33 COVID-19 PCR Negative (Negative) 10/15/19 21:55 Nasopharyn COVID-19 PCR Not Applicable 10/15/19 21:55 Ref Test Perform [facility] 10/15/19 21:55 Patient ABO/Rh B Positive 10/15/19 15:50 Antibody Screen Negative 10/15/19 15:50
--- NOTE | 2019-10-17 11:08 | PDOC.CMPRO ---
- If Service Date Differs Date of service: 10/17/19 Time of Service: 11:08 Care Management Progress Note S/O: CM left a voicemail for admissions at [facility] to review possibility for admission today. Awaiting a bed offer. She continues to need PT and OT and has a palliative care consult. A: Katherine is a 34 year old female admitted with inability to care of herself. P:Katherine will be discharged to accepting facility once a bed offer has been made and she is medically clear. CM to continue to assess for ongoing discharge needs and support disposition.
--- NOTE | 2019-10-17 11:51 | NUR.NOTE ---
Nursing Note: 10/17/2019, 11:51 Nurse performed a rectal exam as discussed and proposed in morning meeting this morning in response to identified bleeding in patient's briefs. The nurse did not note any blood during rectal examination. Pt reported to nurse that she has been spotting since 2017 but has not had a menstrual period since 2013 following a dilation and curettage procedure.
--- NOTE | 2019-10-17 12:08 | PT.INTREAT ---
Date of service: 10/17/19 Time of Service: 12:09 PT Notes Visit Reasons: INABILITY TO CARE FOR SELF Inpatient Physical Therapy Treatment Note [facility] Date: 10/17/19 PRECAUTIONS: Fall, Seizure, Activity as Tolerated SUBJECTIVE: Katherine states that she does not like to use the STEDY lift, but is agreeable to trying it. She would like to get out of bed and transfer to the chair. OBJECTIVE: PAIN: No c/o pain BED MOBILITY/TRANSFERS Rolling L/R: Min A in a.m.; Mod A in p.m. Supine-sit: Mod A x2 Sit-supine: Min A x2 Sit-stand: Mod A x2 Stand-sit: Mod A x2 in a.m.; Max A x2 in p.m. Bed-Chair: STEDY in a.m. Chair-bed: STEDY in p.m. GAIT Assistive Device: STEDY in a.m.; FWW in p.m. Weight bearing: Full Assist: CGA in a.m.; Mod A + Max A in p.m. Distance: Stood in STEDY x3 minutes with CGA in a.m.; 8 steps in p.m. Deviation: Assist with hand placement required with STEDY in a.m.; assist with hand placement required with FWW and assist with L foot advancement required in p.m.. THEREX: Patient completed cervical flexion and extension x5 each and LAQ x10 each. ASSESSMENT: Patient tolerated session with c/o increased fatigue following activity. She continues to require extensive assist with gait training, for hand placement and L foot advancement. Patient would benefit from continued global strengthening for improved mobility. PLAN: Continue with PT's POC TREATMENT CODE/TIME: Session 1: 30 minutes; [id number] x2 Session 2: 10 minutes; [id number]
--- NOTE | 2019-10-17 12:59 | NUR.NOTE ---
Nursing Note: 10/17/2019,12:59 Pt transferred from bed to bedside commode with a rolling walker and 3-assist. When patient returned to bed she was tearful and reported that she wished she was back to normal and acknowledged not liking to need so much assistance to move. Nurses reassured pt and set up lunch tray for pt.
[2019-10-17 15:51] VITALS: BP 105/72; PULSE 88; RESP 14; TEMP 36.6; O2SAT 99
[2019-10-17] MEDS: Acetaminophen 325 MG TAB 650 MG PO (21:32)
[2019-10-17] MEDS: Melatonin 3 MG TAB PO (21:39)
[2019-10-17] MEDS: clonazePAM 1 MG TAB PO (21:39)
[2019-10-17 23:54] VITALS: BP 91/56; PULSE 87; RESP 17; TEMP 36.6; O2SAT 96
[2019-10-18 03:10] VITALS: BP 96/62; PULSE 79; RESP 17; TEMP 36.6; O2SAT 97
[2019-10-18 07:45] VITALS: BP 103/70; PULSE 77; RESP 18; TEMP 36.8; O2SAT 98
[2019-10-18] MEDS: Levothyroxine 88 MCG TAB PO (07:45)
[2019-10-18] MEDS: Docusate Sodium 100 MG/10 ML CUP PO (09:39)
[2019-10-18] MEDS: Sertraline 25 MG TAB PO (09:40)
[2019-10-18] MEDS: Ascorbic Acid 500 MG TAB PO ×2 (09:40→21:10)
[2019-10-18] MEDS: Ferrous Gluconate 324 MG TAB PO ×2 (09:40→21:10)
[2019-10-18] MEDS: carBAMazepine 200 MG TAB PO ×2 (09:40→21:10)
[2019-10-18] MEDS: Multivitamin w/Minerals TAB 2 TAB PO (09:40)
[2019-10-18] MEDS: Omeprazole 20 MG CAPCR PO (09:40)
[2019-10-18] MEDS: levETIRAcetam Oral Solution 100 MG/ML 1500 MG PO ×2 (09:40→21:10)
[2019-10-18] MEDS: Normal Saline Flush 10 ML SYR IVP (09:41)
--- NOTE | 2019-10-18 13:18 | W.PM.PROGNOT ---
Date of Service Date of service: 10/18/19 Time of Service: Assessment and Plan Assessment and plan (1) Bedbound: Start date: 10/18/19 Start time: 13: Status: Chronic Assessment and plan: chronic and deteriorating slowly. continue PT palliative care consult case management following. Transition to H/R when bed opening (2) Hypothyroidism: Start date: 10/18/19 Start time: 13:28 Status: Chronic Assessment and plan: TSH 1.38 in August 2019. continue home dosing (3) GERD (gastroesophageal reflux disease): Start date: 10/18/19 Start time: 13:28 Status: Chronic Assessment and plan: stable, continue omeprazole (4) Seizure disorder: Start date: 10/18/19 Start time: : Status: Chronic Assessment and plan: no evidence of seizures, continue monitor and home medications (5) Discharge planning issues: Start date: 10/18/19 Start time: : Status: Inactive Assessment and plan: case management following, referrals placed to LTC. case discussed with Dr Amanda who is in agreement. Subjective Subjective Patient reports: other Interval history since last seen: feeling tired. Looks fatigued and depressed. States she hasnt been sleeping. Will order trazadone and trial for sleep, She denies CP, SOB, N/V/D. Exam Const General: cooperative, comfortable, no acute distress, frail appearing and ill appearing chronically Nutritional Appearance: thin Orientation: alert, awake and oriented x3 [facility] Head: abrasion, scalp lesion (bandaid right forehead) and other (scar) Ears: hearing grossly normal bilaterally General nose exam: external nose normal Eyes EOM: EOM intact bilaterally Neck Neck: normal visual inspection and No submandibular swelling Lymphatic: no lymphadenopathy noted Chest Chest: normal inspection of the chest and no tenderness Resp Effort & Inspection: normal respiratory effort and able to speak in complete sentences Auscultation: clear to auscultation bilaterally and diminished lung sounds (bases) bilaterally Cardio Rate: regular rate Rhythm: regular rhythm GI Inspection: normal to inspection Palpation: soft, not firm, not rigid and nontender Auscultation: normal bowel sounds Skin General skin exam: no rashes or lesions noted Neuro General: patient alert, patient awake and patient oriented x3 Cognition: normal cognition Speech: speech normal Motor: muscle tone normal throughout Sensory Exam: no sensory deficits noted Extrem General: normal to inspection, full ROM, capillary refill normal, no calf tenderness bilaterally and no edema Psych Appearance: grossly normal Mental Status: mental status grossly normal Speech and Movement: speech and movement normal Affect: normal affect Objective Objective Clinical Data: Vital Signs Temperature 36.8 C 10/18/19 07:45 Temperature Source Temporal Artery Scan 10/18/19 07:45 Pulse 77 10/18/19 07:45 Pulse Rhythm Regular 10/18/19 10:37 Respiratory Rate 18 10/18/19 07:45 Respiratory Effort 10/18/19 10:37 Respiratory Depth Normal 10/18/19 10:37 Respiratory Pattern Normal 10/18/19 10:37 Blood Pressure 103/70 10/18/19 07:45 Blood Pressure Position Supine 10/15/19 14:00 Pulse Oximetry 98 10/18/19 07:45 Oxygen Delivery Method Room Air 10/18/19 07:45 Oxygen Flow Rate 0 10/18/19 07:45 Pain Level 0 10/18/19 07:45 Comment 10/17/19 15:42 Intake & Output 10/17/19 10/18/19 10/18/19 23:59 11:59 23:59 Intake Total 550 / 600 500 / 500 Output Total 700 / 900 300 / 300 Balance -150 / -300 200 / 200 Intake: IV Oral 540 / 590 490 / 490 Output: Urine 700 / 900 300 / 300 Other: Urine Color Yellow Pale Urine Appearance Clear Clear Urine Odor Normal None Comment Void x1 in the bedside commode. Pt voided in bed bernardo Stool Size Smear Stool Characteristics Brown Voiding Methods Bedpan Bedpan Diaper Incontinent Laboratory Results WBC 5.64 k/cumm (4.4-10.8) 10/15/19 15:25 RBC 4.32 m/cumm (4.00-5.20) 10/15/19 15:25 Hgb 12.6 g/dL (12.0-15.5) 10/15/19 15:25 Hct 36.4 % (36.0-46.0) 10/15/19 15:25 MCV 84.3 fL (80-95) 10/15/19 15:25 MCH 29.2 pg (27.0-33.0) 10/15/19 15:25 MCHC 34.6 g/dL (32.0-36.0) 10/15/19 15:25 RDW 12.4 % (11.7-14.6) 10/15/19 15:25 Plt Count 214 x1000/uL (130-400) 10/15/19 15:25 MPV 9.5 fL (8.0-11.0) 10/15/19 15:25 Immature Gran % 0.2 % 10/15/19 15:25 Neutrophils % 55.6 10/15/19 15:25 Lymphocytes % 36.2 10/15/19 15:25 Monocytes % 6.0 10/15/19 15:25 Eosinophils % 1.8 10/15/19 15:25 Basophils % 0.2 10/15/19 15:25 Absolute Neutrophils 3.14 k/cumm (1.2-6.7) 10/15/19 15:25 Absolute Lymphocytes 2.04 k/cumm (1.2-3.4) 10/15/19 15:25 Absolute Monocytes 0.34 k/cumm (0.11-0.7) 10/15/19 15:25 Absolute Eosinophils 0.10 k/cumm (0.0-0.7) 10/15/19 15:25 Absolute Basophils 0.01 k/cumm (0.0-0.2) 10/15/19 15:25 PT 10.2 sec (9.3-11.0) 10/15/19 15:50 INR 1.0 (0.9-1.1) 10/15/19 15:50 APTT 22.6 sec (21.0-31.4) 10/15/19 15:50 Sodium 140 mmol/L (136-145) 10/15/19 15:25 Potassium 4.5 mmol/L (3.5-5.1) 10/15/19 15:25 Chloride 105 mmol/L (98-107) 10/15/19 15:25 Carbon Dioxide 29.2 mmol/L (21.0-32.0) 10/15/19 15:25 Anion Gap 5.8 mmol/L (3-11) 10/15/19 15:25 BUN 11 mg/dL (7-18) 10/15/19 15:25 Creatinine 0.60 mg/dL (0.55-1.02) 10/15/19 15:25 Estimated GFR/1.73 m2 >= 60.00 (mL/min/1.73m2) 10/15/19 15:25 Glucose 95 mg/dL (74-106) 10/15/19 15:25 Calcium 8.7 mg/dL (8.5-10.1) 10/15/19 15:25 Total Bilirubin 0.2 mg/dL (0.2-1.0) 10/15/19 15:25 AST 22 U/L (15-37) 10/15/19 15:25 ALT 37 U/L (14-59) 10/15/19 15:25 Alkaline Phosphatase 114 U/L (46-116) 10/15/19 15:25 Total Protein 6.2 g/dL (6.4-8.2) L 10/15/19 15:25 Albumin 3.3 g/dL (3.4-5.0) L 10/15/19 15:25 Urine Color Yellow (Yellow) 10/15/19 17:33 Urine Clarity Clear (Clear) 10/15/19 17:33 Urine pH 6.5 (5-8) 10/15/19 17:33 Ur Specific [place] 1.010 (1.005-1.025) 10/15/19 17:33 Urine Protein Negative mg/dL (Negative) 10/15/19 17:33 Urine Ketones Negative mg/dL (Negative) 10/15/19 17:33 Urine Blood Small (Negative) H 10/15/19 17:33 Urine Nitrite Negative (Negative) 10/15/19 17: Urine Bilirubin Negative (Negative) 10/15/19 17:33 Urine Urobilinogen 0.2 EU/dL (Up TO 0.2) 10/15/19 17:33 Ur Leukocyte Esterase Trace (Negative) H 10/15/19 17:33 Urine RBC 0-2 HPF (0-2) 10/15/19 17:33 Urine WBC 0-2 HPF (0-5) 10/15/19 17:33 Ur Epithelial Cells Moderate HPF (Negative) 10/15/19 17:33 Urine Crystals Negative HPF (Negative) 10/15/19 17:33 Urine Bacteria Rare HPF (Negative) 10/15/19 17:33 Urine Mucus Negative (Negative) 10/15/19 17:33 Ur Culture Indicated? Yes 10/15/19 17:33 Urine Glucose Negative mg/dL (Negative) 10/15/19 17:33 COVID-19 PCR Negative (Negative) 10/15/19 21:55 Nasopharyn COVID-19 PCR Not Applicable 10/15/19 21:55 Ref Test Perform Site [facility] lab 10/15/19 21:55 Patient ABO/Rh B Positive 10/15/19 15:50 Antibody Screen Negative 10/15/19 15:50
--- NOTE | 2019-10-18 15:21 | NUR.NOTE ---
10/18/2019, 15:21 Nursing Note: Nurse answered call from pt's boyfriend, who identified himself as John. John has some of Katherine's belongings and was wondering where to bring them. John reported Katherine was trying to call him while he was on the phone with the nurse. Nurse instructed John that belongings will need to be quarantined for 24 hrs at [facility] once they arrive. Nurse informed John that if there were items of immediate need per patient, they could be brought to [facility].
[2019-10-18 15:40] VITALS: BP 101/70; PULSE 78; RESP 17; TEMP 36.5; O2SAT 99
--- NOTE | 2019-10-18 15:41 | PDOC.CMPRO ---
- If Service Date Differs Date of service: 10/18/19 Time of Service: 15:41 Care Management Progress Note S/O: Katherine is alert she is sitting up in the chair when CM arrives. She complains about the medications burning her throat when she takes the liquid and her upper chest. Provider in with her and is going to adjust her medications to attempt to relieve the symptoms. Katherine remains agreeable to [facility]. She will be retested for COVID today and CM faxed screening tool. Pending test results time to be determined of transfer. 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 Katherine is a palliative care patient. P:Katherine has been [facility] pending repeat COVID results. She will transport via wheelchair van via [facility]. CM to continue to assess for ongoing discharge needs and support disposition.
--- NOTE | 2019-10-18 18:00 | PT.INDS ---
Date of service: 10/22/19 PT Notes Visit Reasons: INABILITY TO CARE FOR SELF Inpatient Physical Therapy Discharge Summary Dates: 10/18/2019 Dates of Service: 10/16/2019 through 10/18/2019 Referring Doctor: Luis Olvera MD PT Orders: PT CONSULT: Eval/treat Precautions: Fall. Standard. Activity as tolerated. Seizure-prone. 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 They have had a ramp built at the entrance of the house where they wheel her in and out as needed using a wheelchair. She states that since her fall in the same month, she has had significant difficulty with moving about in the house. She was receiving home health PT services at home. It was the TELEPHONE APPOINTMENT CLERK who was working with her at home who urged her to call her primary doctor as her blood pressure dipped down significantly which resulted to this most recent admission. Katherine reports that she has not been walking for the past 3-1/2 months and that 2 people have been helping her stand up and transfer onto the commode or to a bedside chair. Equipment Owned/DME: 4 wheeled walker, bedside commode, wheelchair Subjective: Katherine is agreeable to transferring to the H and R for continued rehabilitation. Continues to be limited by pain and fatigue. States that mixing her Keppra with Gatorade has really considerably minimized burning sensation in her throat. Objective: General Observation: Wound dressing over her right frontal parietal area. IV access open in the right UE. Right ptosis. Mildly lethargic. Increased tendency to lean on the left side. Mental Status: Alert and oriented x4 Pain: Reports 5?6/10 in the right hip at rest and and movement ROM: Right Upper Extremity: Shoulder Flexion about 10 to 15 degrees. Shoulder abduction about 10 to 15 degrees. Elbow flexion WFL. Wrist flexion about 10 degrees. Opening limited but is able to assume a functional grasp. Left Upper Extremity: Shoulder Flexion WFL. Shoulder abduction WFL. Elbow flexion WFL. Wrist flexion WFL. Opening and closing of hand WFL. Right Lower Extremity: Hip flexion allows 30 degrees. Hip abduction allows 20 degrees. Knee flexion allows 30 degrees. Knee extension -30 degrees. Ankle dorsiflexion allows up to neutral only. Ankle plantarflexion 20 degrees. Left Lower Extremity: Hip flexion allows 30 degrees. Hip abduction allows about 20 degrees. Knee flexion allows 30 degrees. Knee extension -30 degrees ankle dorsiflexion 20 degrees from a fully plantarflexed position. Ankle plantarflexion 20 degrees. Strength: Right Upper Extremity: Shoulder flexors 2-/5. Shoulder abductors 2-/5. Elbow flexors 3/5. Elbow extensors 3+/5. School Examiner weak but functional. Left Upper Extremity: Shoulder flexors 4/5. Shoulder abductors 4/5. Elbow flexors 4/5. Elbow extensors 4/5. School Examiner strong. Right Lower Extremity: Hip flexors 3-/5. Hip abductors 3-/5. Knee flexors 3-/5. Knee extensors 3-/5. Ankle dorsiflexors 3-/5. Ankle plantarflexors 3-/5. Left Lower Extremity:Hip flexors 3-/5. Hip abductors3-/5. Knee flexors 3-/5. Knee extensors 3-/5. Ankle dorsiflexors 3-/5. Ankle plantarflexors 3-/5. Sensation: Intact as to pain and pressure on bilateral lower extremities. Bed Mobility/Transfers: Rolling minimal assist of 2 Supine to sit moderate assist of 2 with moderate verbal cueing for correct technique and safety Sit to stand moderate assist of 2 and minimal assist of another with moderate verbal cueing for correct technique and safety Stand to sit moderate assist of 2 and minimal assist of another with moderate verbal cueing for correct technique and safety Bed to chair moderate assist of 2 and minimal assist of another with moderate verbal cueing for correct technique and safety Gait: Patient only tolerates 2 sidesteps +2 step backs from bed to the bedside commode and then another 2 sidesteps and to step backs from the bedside commode to the bedside recliner chair. She requires moderate assist of 2 and minimal assist of a third person to set up equipment and for safety with verbal cues provided to extend both hips and trunk and tactile cues given to maximize the walking of both knees for safety. Balance: Static Sitting: Fair Dynamic Sitting: Poor Static Standing: Poor Dynamic Standing: Poor Assessment: Harmony continues to demonstrate significant functional mobility decline requiring extensive assistance with bed mobility and transfer task performance. She has not ambulated for over 3 months now and will require usp facility placement in order to work on gradually progressing mobility level to increase safety and reduce fall risk. She has residual BUE/LE weakness with the right more affected than the left. She has ongoing perceptual deficit resulting in limited ability to estimate distance (dysmetria) which will require assistance with all transfer performance. Patient is seizure-prone and has been on chronic anti-seizure medication. Patient continues to present with clinical signs and symptoms consistent with current/admitting diagnoses that have resulted to mobility limitations, gait instability, generalized weakness, and impairment of motor control as demonstrated by the following impairment level findings: 1. Decreased strength to B UEs/LE major muscle groups with the R >> L 2. Impaired sitting/standing balance 3. Impaired activity tolerance 4. Limitation of joint range of motion in multiple B UE/LE joints Impairments are c continuing to contribute to the following functional limitations: 1. Dependent bed mobility skills 2. Increased dependence with transfers 3. Inability to safely ambulate without assistive device and physical assistance 4. Increase completion time for mobility ADL performance 5. Increased fall risk 6. Inability to negotiate steps alone safely Patient is assessed as a 32999 high complexity based on the following: History: 34-year-old female with impairment level findings, functional limitations, and past medical history as indicated above Examination: Demonstrable impairment in strength, balance, and mobility level with underlying impairments and functional limitations as documented above Presentation: Evolving Decision Makin high complexity Goals: Goals X1 week 1. Supine-Sit minimal assist of 2 NOT MET 2. Sit-Supine minimal assist of 2 NOT MET 3. Sit-Stand minimal assist of 2 NOT MET 4. Stand-Sit minimal assist of 2 NOT MET 5. Bed-Chair minimal assist of 2 NOT MET 6. Chair-Bed minimal assist of 2 NOT MET 7. Moderate assist of to gait on level surface with use of least restrictive device for at least 5 feet without report of pain nor dyspnea NOT MET 8. Fair static and dynamic standing balance/tolerance NOT MET DISCHARGE RECOMMENDATIONS: Patient will benefit from usp facility placement for continued skilled physical therapy services in order to progress mobility level, strength, and balance in preparation for a safe discharge to home. TREATMENT CODE/TIME: 19520 x 20 minutes beginning at 10:15 AM. Thank you for the opportunity to participate in the care of this patient. Myrna Kendrick PT, DPT, CLT [facility] [place], [place]
[2019-10-18 21:15] VITALS: BP 116/69; PULSE 91; RESP 18; TEMP 36.6; O2SAT 94
[2019-10-18] MEDS: traZODone 50 MG TAB PO (22:14)
[2019-10-18] MEDS: Melatonin 3 MG TAB PO (22:14)
[2019-10-18] MEDS: clonazePAM 1 MG TAB PO (22:14)
[2019-10-19] MEDS: Levothyroxine 88 MCG TAB PO (06:29)
[2019-10-19 06:32] VITALS: BP 93/71; PULSE 78; RESP 18; TEMP 36; O2SAT 92
[2019-10-19 08:29] LABS: COVID-19 RT-PCR UVMMC Result Negative (Negative)
[2019-10-19] MEDS: Omeprazole 20 MG CAPCR PO (09:00)
[2019-10-19] MEDS: carBAMazepine 200 MG TAB PO (09:00)
[2019-10-19] MEDS: Ascorbic Acid 500 MG TAB PO (09:00)
[2019-10-19] MEDS: Ferrous Gluconate 324 MG TAB PO (09:00)
[2019-10-19] MEDS: levETIRAcetam Oral Solution 100 MG/ML 1500 MG PO (09:00)
[2019-10-19] MEDS: Sertraline 25 MG TAB PO (09:00)
[2019-10-19] MEDS: Lidocaine 2% Viscous 15 ML CUP PO (09:03)
[2019-10-19] MEDS: Normal Saline Flush 10 ML SYR IVP (09:03)
--- NOTE | 2019-10-19 10:19 | PDOC.CMDIS ---
- If Service Date Differs Date of service: 10/19/19 Time of Service: 10:19 LACE Index Scoring Tool - Questions: Length of Stay (in days): 3 Acuity (Admit via E.D.?): Yes Comorbidities: Any Tumor E.D. Visits: 9 - Answers: Total Score: 12 Risk of Readmission: High Risk Care Management Discharge Reason for Hospitalization: Inability to care for self Discharge Plan: Katherine will be discharged to health and rehab today. Via wheelchair van. VERNON left a voicemail for her Mom and requested she bring in some of her clothing to the rehab. Katherine will be transported to the Rehab via wheelchair van. Patient/Family Education Needs: Discharge education, limitations and follow up plan of care. Services Needed at Discharge: Long-Term Facility, Transportation
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
== END 2019-10-19 12:47 | disposition skilled nursing facility (03) | DRG 53 ==
LOC: ER 21:04 → MS 10-16 08:24
PROVIDERS: Internal Medicine; Admitting Provider General Practice; Emergency Provider Physician Assistant; PCP Family Medicine; Visit Provider General Practice
DX: G82.50 Quadriplegia, unspecified (principal); N93.8 Other specified abnormal uterine and vaginal bleeding; R26.2 Difficulty in walking, not elsewhere classified; Z74.01 Bed confinement status; Q85.00 Neurofibromatosis, unspecified; I95.9 Hypotension, unspecified; E03.9 Hypothyroidism, unspecified; J45.909 Unspecified asthma, uncomplicated; K21.9 Gastro-esophageal reflux disease without esophagitis; Z85.830 Personal history of malignant neoplasm of bone; Z11.59 Encounter for screening for other viral diseases; H54.61 Unqualified visual loss, right eye, normal vision left eye; N88.8 Other specified noninflammatory disorders of cervix uteri; Z85.841 Personal history of malignant neoplasm of brain
CPT/HCPCS: 36415; 80053; 81025; 86850; 86900; 86901; 96361; 96374; 97163; 97530; 99221; 99233; 99239; 99255; 99285; U0003; 74177; 81003; 81015; 85025; 85610; 85730; 87086; 99218; G0378; J1885; J3490

== ENCOUNTER 2019-10-24 17:29 | Outpatient (REF) | payer MEDICARE, MEDICAID, SELFPAY ==
[2019-10-25 17:48] LABS: COVID-19 RT-PCR Result Not Detected ((See Note))
== END 2019-10-24 17:49 ==
LOC: LBN 17:29
PROVIDERS: PCP Family Medicine; Visit Provider Nurse Practitioner Adult Health
DX: Z03.818 Encounter for observation for suspected exposure to other biological agents ruled out (principal)
CPT/HCPCS: U0003

== ENCOUNTER 2019-10-31 11:02 | Outpatient (REF) | payer MEDICARE, MEDICAID, SELFPAY ==
[2019-11-01 17:48] LABS: COVID-19 RT-PCR Result Not Detected ((See Note))
== END 2019-10-31 11:22 ==
LOC: LBN 11:02
PROVIDERS: PCP Family Medicine; Visit Provider Nurse Practitioner Adult Health
DX: Z03.818 Encounter for observation for suspected exposure to other biological agents ruled out (principal)
CPT/HCPCS: U0003

== ENCOUNTER 2019-11-08 12:45 | Outpatient (REF) | payer SELFPAY ==
[2019-11-08 17:53] LABS: Anion Gap 5.7 mmol/L (3-11); BUN 15 mg/dL (7-18); CO2 30.3 mmol/L (21.0-32.0); CREATININE 0.56 mg/dL (0.55-1.02); Chloride 107 mmol/L (98-107); Glucose 97 mg/dL (74-106); Potassium 3.8 mmol/L (3.5-5.1); Sodium 143 mmol/L (136-145)
[2019-11-08 17:59] LABS: Absolute Basophil Count 0.02 10^3/uL (0.0-0.2); Absolute Eosinophil Count 0.11 10^3/uL (0.0-0.7); Absolute Lymphocyte Count 2.07 10^3/uL (1.2-3.4); Absolute Monocyte Count 0.34 10^3/uL (0.1-0.8); Absolute Neutrophil Count 2.97 10^3/uL (1.2-6.7); Basophils % 0.4; HGB 12.9 g/dL (11.2-15.7); Lymphocytes % 37.6; MCH 29.5 pg (27.0-33.0); MCHC 33.9 % (32.0-36.0); MCV 86.8 fL (80-95); MPV 10.1 fL (8.0-11.0); Monocytes % 6.2; Neutrophils % 53.8; Nucleated RBC 0 %; Platelet Count 215 10^3/uL (130-400); RBC 4.38 10^6/uL (3.93-5.22); RDW 12.2 % (11.7-14.6); RDW-SD 39.4 fL; WBC 5.51 10^3/uL (4.4-10.8)
[2019-11-09 18:27] LABS: COVID-19 RT-PCR Result Not Detected ((See Note))
== END 2019-11-08 13:05 ==
LOC: LBN 12:45
PROVIDERS: PCP Family Medicine; Visit Provider Nurse Practitioner Adult Health
DX: R50.9 Fever, unspecified (principal)
CPT/HCPCS: 80048; U0003; 85025

== ENCOUNTER 2019-11-09 00:05 | Outpatient (REF) | payer MEDICARE, MEDICAID, SELFPAY ==
[2019-11-09 00:28] LABS: Bilirubin Negative (Negative); Blood Trace-intact (Negative); Glucose Negative (Negative); Ketones Negative (Negative); Leukocyte Esterase Small (Negative); Nitrite Negative (Negative); Specific Gravity >= 1.030 (1.005-1.025)
[2019-11-09 00:30] LABS: Bacteria Many HPF (Negative); C & S Indicated? Yes; Casts Negative LPF (Negative); Clarity Sl Cloudy (Clear); Crystals Negative HPF (Negative); Epithelial Cells Rare HPF (Negative); Mucus Negative (Negative)
== END 2019-11-09 00:25 ==
LOC: LBO 00:05
PROVIDERS: PCP Family Medicine; Visit Provider Nurse Practitioner Adult Health
DX: R50.9 Fever, unspecified (principal)
CPT/HCPCS: 87077; 81003; 81015; 87086; 87186

== ENCOUNTER 2019-12-05 02:41 | Outpatient (CLI) | payer MEDICARE, MEDICAID, SELFPAY ==
--- NOTE | 2019-12-05 | DI.MRI_ITS ---
EXAM: MR BRAIN WO/W CLINICAL HISTORY: MENINGIOMA, D32.9. TECHNIQUE: Multiplanar multisequence MRI of the brain was performed. CONTRAST MATERIAL: IV Contrast: 12 ML of Dotarem contrast administered. COMPARISON: MR MR BRAIN WO/W from 08/14/2019 FINDINGS: There are again seen multiple intracranial enhancing masses. No new masses are seen with compared to the examination from 08/14/2019. The masses appear stable with only 1-2 mm increase or decrease in s ize of a few of the lesions when compared to the prior examination. There is unchanged left for orquidea ation of the midline. There is again seen hyperintense signal in the white matter diffusely on the F LAIR and T2 weighted images. Trigger size appears stable with an enlarged right temporal horn. No e vidence restricted diffusion is seen to suggest an acute infarct. Old right craniotomy defect is not ed. IMPRESSION: Overall stable appearance of the numerous intracranial lesions. DATA REPOSITORY:
[2019-12-05] MEDS: Normal Saline Flush 10 ML SYR IVP (14:44)
[2019-12-05] MEDS: Gadoterate meglumine 20 ML VIAL 12 ML IVP (14:45)
== END 2019-12-05 03:01 ==
PROVIDERS: PCP Family Medicine; Visit Provider Neurological Surgery
DX: D32.9 Benign neoplasm of meninges, unspecified (principal)
CPT/HCPCS: 70553

== ENCOUNTER 2019-12-11 21:47 | Observation (INO) | payer MEDICARE, MEDICAID, SELFPAY ==
[2019-12-11] VITALS (23 sets, daily range): BP systolic 94–116; BP diastolic 61–81; PULSE 92–107; RESP 14–24; TEMP 37.2–37.7; O2SAT 92–99
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
--- NOTE | 2019-12-11 21:45 | DI.RAD_ITS ---
EXAM: XR PORTABLE CHEST AP CLINICAL HISTORY: cough TECHNIQUE: 2D digital imaging was performed. COMPARISON: CR XR ribs LT w PA lat chest from 11/07/[address] ABDOMEN PELVIS W from 10/15/2019 FINDINGS: LUNGS: Clear. No pleural abnormality seen. HEART: Normal. MEDIASTINUM: Normal. OTHER FINDINGS: Stable elevation of the right diaphragm. IMPRESSION: No acute pulmonary findings. DATA REPOSITORY: RADIATION DOSE DELIVERED:
[2019-12-11 22:15] LABS: Abs Immature Grans 0.03 10^3/uL (0.0-0.06); Absolute Basophil Count 0.02 10^3/uL (0.0-0.2); Absolute Eosinophil Count 0.03 10^3/uL (0.0-0.7); Absolute Monocyte Count 0.63 10^3/uL (0.1-0.8); Absolute Neutrophil Count 6.58 10^3/uL (1.2-6.7); Basophils % 0.2; Eosinophils % 0.3; HCT 36.7 % (36.0-46.0); HGB 12.6 g/dL (11.2-15.7); Immature Grans % 0.3; MCH 29.8 pg (27.0-33.0); MCHC 34.3 % (32.0-36.0); MCV 86.8 fL (80-95); MPV 9.8 fL (8.0-11.0); Monocytes % 6.3; Neutrophils % 65.9; Nucleated RBC 0 %; Platelet Count 229 10^3/uL (130-400); RBC 4.23 10^6/uL (3.93-5.22); RDW 11.9 % (11.7-14.6); RDW-SD 37.7 fL; WBC 9.99 10^3/uL (4.4-10.8)
[2019-12-11] MEDS: Normal Saline 1,000 ML 1000 ML IV ×2 (22:26→23:29)
[2019-12-11 22:28] LABS: ALT 49 U/L (14-59); AST 21 U/L (15-37); Albumin 3.5 g/dL (3.4-5.0); Alkaline Phosphatase 130 U/L (46-116); Anion Gap 6.9 mmol/L (3-11); BUN 17 mg/dL (7-18); Bilirubin, Total 0.4 mg/dL (0.2-1.0); CO2 29.1 mmol/L (21.0-32.0); Calcium 9.4 mg/dL (8.5-10.1); Chloride 104 mmol/L (98-107); Glucose 108 mg/dL (74-106); Potassium 3.7 mmol/L (3.5-5.1); Sodium 140 mmol/L (136-145); Total Protein 6.8 g/dL (6.4-8.2)
[2019-12-11] MEDS: diphenhydrAMINE 50 MG/ML VIAL 25 MG IVP (22:40)
[2019-12-11] MEDS: methylPREDNISolone SUCC 125 MG VIAL IVP (22:40)
[2019-12-11] MEDS: FAMOTIDINE 20 MG/50 ML BAG 200 MG IVPB (22:47)
--- NOTE | 2019-12-11 22:47 | DI.VRAD_ITS ---
PROCEDURE INFORMATION: Exam: XR Chest, 1 View Exam date and time: 12/11/2019 10:29 PM Age: 34 years old Clinical indication: Other: Cough; Additional info: Cough, fever HX of CA TECHNIQUE: Imaging protocol: XR of the chest Views: 1 view. COMPARISON: No relevant prior studies available. FINDINGS: Lungs: No lung infiltrates or consolidation. Pleural space: No pleural effusions. Heart/Mediastinum: Normal heart size and contour. Diaphragm: Elevation of the right hemidiaphragm of moderate severity. This is nonspecific. Bones/joints: Degenerative thoracic spine disease. IMPRESSION: 1. No lung infiltrates or edema. 2. No pleural effusions. 3. Degenerative thoracic spine disease. Dictated and Authenticated by: Fernie Beltran MD. Ordering:ANNY Buenrostro MD
[2019-12-11] MEDS: PIPERACILLIN/TAZO 4.5 GM in Normal Saline 100 ML IVPB (22:54)
[2019-12-11] MEDS: ACETAMINOPHEN 1,000 MG/100 ML BTL 400 MG IVPB (23:00)
[2019-12-11 23:12] LABS: Procalcitonin < 0.1 ng/mL
[2019-12-11 23:26] LABS: Bilirubin Negative (Negative); Blood Negative (Negative); Clarity Clear (Clear); Glucose Negative (Negative); Ketones Negative (Negative); Leukocyte Esterase Negative (Negative); Nitrite Negative (Negative); Specific Gravity >= 1.030 (1.005-1.025); Urobilinogen 0.2 EU/dL (Up TO 0.2)
[2019-12-11] MEDS: AZITHROMYCIN 500 MG in Normal Saline 250 ML 250 MG IVPB (23:26)
[2019-12-11 23:29] LABS: Bacteria Negative HPF (Negative); C & S Indicated? C&S Done As Ordered; Casts Negative LPF (Negative); Crystals Negative HPF (Negative); Epithelial Cells Negative HPF (Negative); Mucus Negative (Negative); RBC Negative HPF (0-2); WBC Negative HPF (0-5)
[2019-12-11] MEDS: Oseltamivir 6 MG/ML 60 ML BTL 75 MG PO (23:54)
[2019-12-12] VITALS (71 sets, daily range): BP systolic 90–133; BP diastolic 55–89; PULSE 68–109; RESP 13–32; TEMP 36.9–37.2; O2SAT 94–98
[2019-12-12] MEDS: VANCOMYCIN 1,300 MG in Normal Saline 500 ML 333.3333 MG IVPB (00:06)
[2019-12-12] MEDS: Ondansetron 4 MG/2 ML VIAL IVP (00:11)
--- NOTE | 2019-12-12 03:44 | NUR.NOTE ---
repositioned q 2 hrs as ordereds. coccyx slightly reddened on arrival. .
[2019-12-12 07:10] LABS: Abs Immature Grans 0.03 10^3/uL (0.0-0.06); Absolute Lymphocyte Count 0.93 10^3/uL (1.2-3.4); Absolute Monocyte Count 0.11 10^3/uL (0.1-0.8); Absolute Neutrophil Count 4.48 10^3/uL (1.2-6.7); HGB 10.6 g/dL (11.2-15.7); Immature Grans % 0.5; Lymphocytes % 16.8; MCH 29.2 pg (27.0-33.0); MCHC 33.1 % (32.0-36.0); MCV 88.2 fL (80-95); MPV 10.2 fL (8.0-11.0); Neutrophils % 80.7; Nucleated RBC 0 %; Platelet Count 165 10^3/uL (130-400); RBC 3.63 10^6/uL (3.93-5.22); RDW 11.9 % (11.7-14.6); RDW-SD 38.5 fL; WBC 5.55 10^3/uL (4.4-10.8)
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
[2019-12-12 07:32] LABS: Anion Gap 4.8 mmol/L (3-11); BUN 11 mg/dL (7-18); CO2 25.2 mmol/L (21.0-32.0); CREATININE 0.53 mg/dL (0.55-1.02); Calcium 7.7 mg/dL (8.5-10.1); Chloride 109 mmol/L (98-107); Glucose 144 mg/dL (74-106); Magnesium 1.7 mg/dL (1.8-2.4); Potassium 3.8 mmol/L (3.5-5.1); Sodium 139 mmol/L (136-145)
[2019-12-12 07:37] LABS: TROPONIN-I 7.2 ug/mL (4.0-12.0)
--- NOTE | 2019-12-12 07:57 | NT_ITS ---
Date of service: 12/12/19 Time of Service: 07:10 Occupational Therapy Notes 12/12/19 OT consult received and pt's chart was reviewed. OT attempted to see pt who is still waiting for her covid-19 test results per RN. Due to this, OT will plan to hold on pts consult until results come in. Mary Ellen Garland, OTR/[facility]
[2019-12-12] MEDS: Sertraline 25 MG TAB PO (08:30)
[2019-12-12] MEDS: Multivitamin w/Minerals TAB 2 TAB PO (08:30)
[2019-12-12] MEDS: Acetaminophen 325 MG TAB 650 MG PO (08:30)
[2019-12-12] MEDS: Docusate Sodium 100 MG/10 ML CUP PO (08:30)
[2019-12-12] MEDS: Oseltamivir 75 MG CAP PO (08:30)
[2019-12-12] MEDS: Levothyroxine 88 MCG TAB PO (08:32)
[2019-12-12] MEDS: Omeprazole 20 MG CAPCR PO ×2 (08:32→11:43)
[2019-12-12] MEDS: Ferrous Gluconate 324 MG TAB PO (08:32)
[2019-12-12] MEDS: levETIRAcetam Oral Solution 100 MG/ML 1500 MG PO ×2 (08:33→19:30)
[2019-12-12] MEDS: carBAMazepine 200 MG TAB PO ×3 (08:37→19:20)
[2019-12-12] MEDS: Normal Saline 1,000 ML 1000 ML IV (08:45)
--- NOTE | 2019-12-12 09:00 | PT.INNT ---
Date of service: 12/12/19 Time of Service: 09:00 PT Notes Visit Reasons: INFLUENZA B Will await COVID-19 test result prior to administering PT evaluation. Dr. Can was consulted and is in agreement of plan. Thank you for the opportunity to participate in the care of this patient. Myrna Kendrick PT, DPT, CLT [facility] [place], [place]
--- NOTE | 2019-12-12 09:33 | PDOC.CMIN ---
- If Service Date Differs Date of service: 12/12/19 Time of Service: 09:34 Care Management Initial Assess REASON FOR HOSPITALIZATION:: Influenza B PAST MEDICAL HISTORY/PAST SURGICAL HISTORY:: Medical History (Updated 12/12/19 @ 07:51 by Sissy Zayas MD). Amenorrhea, unspecified (Acute). Asthma (Chronic). Bedbound (Chronic). since June 2019. not OOB independently. Benign schwannoma (Resolved ~07/2018). Cancer of spinal column (Acute). MPN ST s/p chemo/craniosacral radiation. Depression (Chronic). Disability due to neurological disorder (Chronic). Discharge planning issues (Inactive). Facial cellulitis (Resolved). GERD (gastroesophageal reflux disease) (Chronic). 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 Hypothyroidism (Chronic). Impaired mobility and ADLs (Chronic). Meningioma, recurrent of brain (Chronic ~2015). Neurofibromatosis II (Chronic). Non-healing wound (Chronic). right frontal scalp. senior living resident (Acute). Palliative care patient (Acute). Quadriparesis (muscle weakness) (Chronic ~2003). Right hand weakness (Acute). Seizure disorder (Chronic). Severe muscle deconditioning (Chronic). Vision loss, right eye (Chronic). Surgical History . S/P craniotomy (Chronic) PREVIOUS FUNCTIONAL STATUS/SOCIAL/FAMILY SUPPORTS:: She is 33 yo woman who previously lived alone in an apt at the [facility] in [place]. She is now a half-way resident at [facility]. Her primary family support is her mother Margie Barnett. She is and has complex medical history. 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 Has services from [facility] and [facility]. CURRENT FUNCTIONAL STATUS:: Katherine was unable to be seen today because her Covid test was pending. Later, after her test came back negative, CM attempted to visit with her, and she was asleep. Per RN, her mother and boyfriend have both called and expressed concerned about her being at [facility]. CM offered to speak to the family if they have additional/ongoing concerns. CM will continue to follow. ADVANCE DIRECTIVES:: None on file. Has patient been provided with info about the portal/API?: Yes Did the patient sign up for the portal?: No CODE STATUS:: Full Code INSURANCE COVERAGE / FINANCIAL ISSUES:: [employer] CURRENT HOME/COMMUNITY SERVICES/EQUIPMENT:: Katherine lives at [facility], who assists her with her ADL's and equipment needs. PRIMARY CARE PHYSICIAN:: Anupama Joya NP POTENTIAL DISCHARGE NEEDS:: Follow up appointments, coordination to return to [facility] PATIENT/FAMILY EDUCATION NEEDS:: Review discharge instructions regarding activity levels and medications, discussion of goals of care. ANTICIPATED BARRIERS TO DISCHARGE:: None identified at this time. TRANSPORTATION:: Via [facility] w[facility] van, coordinated by [facility]. PLAN:: Anticipate Katherine will return to [facility] when medically cleared. She will be transported by w/c van, coordinated by [facility]. CM will continue to follow and support discharge planning considerations.
[2019-12-12] MEDS: Normal Saline 1,000 ML 50 ML IV (10:49)
[2019-12-12] MEDS: ACETAMINOPHEN 1,000 MG/100 ML BTL 400 MG IVPB (11:46)
--- NOTE | 2019-12-12 11:49 | PHA.REVIEW ---
Pharmacy Admission Review - Admission Clinical Review (Last Updated 12/12/19 @ 07:30 by Sissy Zayas MD) Dehydration (Acute) Discharge planning issues (Acute) DVT prophylaxis (Acute) Sepsis (Acute) Influenza B (Acute) tetanus toxoid, adsorbed Allergy (Severe, Verified 12/11/19 21:58) Swelling/Edema morphine Allergy (Mild, Verified 12/11/19 21:58) Skin Rash vecuronium Allergy (Mild, Verified 12/11/19 21:58) Skin Rash vancomycin Adverse Reaction (Intermediate, Verified 12/11/19 21:58) Entire body itch acetaminophen [From Percocet] Adverse Reaction (Mild, Verified 10/15/19 14:07) vomiting adhesive tape Adverse Reaction (Mild, Verified 12/11/19 21:58) oxycodone [From Percocet] Adverse Reaction (Mild, Verified 12/11/19 21:58) vomiting Height 5 ft 4 in Weight 65.9 kg - Renal Dosing Renal Dosing: BUN 11 mg/dL (7-18) D 12/12/19 06:10 Creatinine 0.53 mg/dL (0.55-1.02) L 12/12/19 06:10 Medications needing adjustments: Reviewed - Anticoagulation Anticoagulation: Hgb 10.6 g/dL (11.2-15.7) L 12/12/19 06:10 Hct 32.0 % (36.0-46.0) L 12/12/19 06:10 Plt Count 165 10^3/uL (130-400) 12/12/19 06:10 Creatinine 0.53 mg/dL (0.55-1.02) L 12/12/19 06:10 DVT Prohphylaxis: N/A Therapeutic Anticoagulation: N/A - Opiate Usage Evaluate Pain Scale/Pains Meds: N/A Scheduled Bowel Reg ordered if on Opiates?: Yes - Relevant Labs Sodium 139 mmol/L (136-145) 12/12/19 06:10 Potassium 3.8 mmol/L (3.5-5.1) 12/12/19 06:10 Chloride 109 mmol/L (98-107) H 12/12/19 06:10 Magnesium 1.7 mg/dL (1.8-2.4) L 12/12/19 06:10 Electrolytes, C-Reactive P, ESR: Reviewed - DM Control DM Control: Glucose 144 mg/dL (74-106) H 12/12/19 06:10 Insulin Dosing: Reviewed - Heart Failure/IN EF%, GLO's, B-Blockers, Diuretics: N/A - BP Control BP Control: Blood Pressure [Right Arm] 97/61 Blood Pressure 123/76 Blood Pressure 130/61 Blood Pressure 90/59 Blood Pressure 90/58 Blood Pressure 91/62 Blood Pressure 92/58 Blood Pressure 91/62 Blood Pressure 93/63 Blood Pressure 94/63 Blood Pressure 96/64 Blood Pressure 90/55 Blood Pressure 97/61 Blood Pressure 98/62 Blood Pressure 98/62 Blood Pressure 97/63 Blood Pressure 97/64 Blood Pressure 96/58 Blood Pressure 99/60 Blood Pressure 96/63 Blood Pressure 97/61 Blood Pressure 98/62 Blood Pressure 97/61 Blood Pressure 97/61 Blood Pressure 99/60 Blood Pressure 94/71 Blood Pressure 97/61 Blood Pressure 94/65 Blood Pressure 114/69 Blood Pressure 114/69 If elevated: Reviewed (SBP normally runs <100) - Qtc Review If Elevated: N/A - IV to PO Switch IV Medications: Reviewed - Home Meds Home Med List reviewed: Intervened (Have been unsuccesful in getting ahold of the nurse who cares for Katherine at [facility] -- want to confirm dosage form of carbamazepine (ER tablet or capsule?) and dosage of sertraline -- looks like she may have recently been increased from 25mg to 50mg) - Current meds Current Medication Order Review: Intervened (Edited several orders to match hospital's admin policy/make sure they came across MAR properly)
[2019-12-12 12:49] LABS: COVID-19 RT-PCR UVMMC Result Negative (Negative)
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
[2019-12-12] MEDS: Oseltamivir 6 MG/ML 60 ML BTL 75 MG PO (19:26)
[2019-12-12] MEDS: clonazePAM 1 MG TAB PO (21:07)
[2019-12-12] MEDS: Melatonin 3 MG TAB PO (21:07)
[2019-12-12] MEDS: traZODone 50 MG TAB PO (21:07)
[2019-12-13] MEDS: ACETAMINOPHEN 1,000 MG/100 ML BTL 400 MG IVPB (06:35)
[2019-12-13] MEDS: Levothyroxine 88 MCG TAB PO (07:27)
[2019-12-13] MEDS: Sertraline 25 MG TAB PO (08:24)
[2019-12-13] MEDS: Omeprazole 20 MG CAPCR PO (08:24)
[2019-12-13] MEDS: levETIRAcetam Oral Solution 100 MG/ML 1500 MG PO (08:24)
[2019-12-13] MEDS: Multivitamin w/Minerals TAB 2 TAB PO (08:25)
[2019-12-13] MEDS: Ferrous Gluconate 324 MG TAB PO (08:25)
[2019-12-13] MEDS: carBAMazepine 200 MG TAB PO (08:25)
[2019-12-13] MEDS: Oseltamivir 6 MG/ML 60 ML BTL 75 MG PO (08:26)
[2019-12-13 08:30] VITALS: RESP 17; TEMP 37.1
[2019-12-13 08:44] VITALS: BP 109/79; PULSE 79; O2SAT 97
--- NOTE | 2019-12-13 09:20 | IN_ITS ---
Date of service: 12/13/19 Time of Service: 09:20 PT Notes Visit Reasons: INFLUENZA B Physical Therapy Inpatient Initial Evaluation Date: 12/13/2019 Referring Doctor: Sissy Zayas MD PT Orders: PT CONSULT: Limited ability Precautions: Fall. Standard. Chronic quadriparesis. Seizure-prone. Patient Profile/Admitting Diagnosis: Katherine is a 34-year-old female with past medical history significant for bilateral acoustic schwannomas, neurofibromatosis type II, malignant peripheral nerve sheath tumor, paresis, seizure disorder, and meningioma status post craniospinal radiation and chemotherapy with multiple meningiomas and meningioma resection who presented to the ED on 12/11/2019 with a chief complaint of sore throat, nausea, and feeling cold. Patient is diagnosed with influenza B, dehydration, and hypotension with referral made to therapy for limited ability. 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 Equipment Owned/DME: Wheelchair Subjective: Katherine is agreeable to PT and OT consult. She complains of a headache that she has had for 3 weeks now at 6/10 pain level. Nurse Tori is aware. Objective: General Observation: Telemetry monitoring in place. Well approximated wound on right parietal area. Unable to open R eye (chronic condition). Swelling to B UE with L hand more affected than R. Bilateral TEDS on. Dos Santos catheter in place. Mental Status: Alert and oriented x4 Pain: 6/10 headache ROM: Right Upper Extremity: Evaluation done concurrently with OT. Please see OT notes. Left Upper Extremity: Evaluation done concurrently with OT. Please see OT notes. Right Lower Extremity: Able to initiate the first 25% of movement for hip flexion and knee flexion. Hip abduction allows up to 10 degrees. Ankle dorsiflexion allows about 10 degrees. Ankle plantarflexion allows about 10 degrees. Left Lower Extremity: No active movement seen. Strength: Right Upper Extremity: Evaluation done concurrently with OT. Please see OT notes. Left Upper Extremity: Evaluation done concurrently with OT. Please see OT notes. Right Lower Extremity: Hip flexors 3-/5. Hip abductors 3-/5. Knee flexors 3-/5. Knee extensors 2-/5. Ankle dorsiflexors 3-/5. Ankle plantarflexors 3-/5. Left Lower Extremity: 1/5 for all hip and knee major muscle groups. 0/5 ankle and foot. Sensation: Intact as to pain and pressure on bilateral lower extremities. Bed Mobility/Transfers: Rolling requires assist of 2. Needs use of mechanical lift for all transfers. Gait: N/A. Non-ambulatory. Balance: Static Sitting: Poor Dynamic Sitting: Poor Static Standing: Unable Dynamic Standing: Unable Special Tests: Mobility Limitations Standardized Measure [facility] AM-PAC 6 clicks Basic Mobility Inpatient Short Form: Raw Score: 7 CMS Score: 92% deficit Informed Consent/Education: Patient instructed in purpose of PT consult and plan of care. Assessment: Harmony demonstrates independence with all mobility ADL performance due to chronic quadriparesis, need for mechanical lift for all transfers, and requires total assist with wheelchair mobility. With residual strength seen in the right UE, she may benefit from the use of a motorized wheelchair for independent facility navigation. Patient presents with clinical signs and symptoms consistent with current/admitting diagnoses that have resulted to mobility limitations, gait instability, generalized weakness, and impairment of motor control as demonstrated by the following impairment level findings: 1. Chronically decreased strength to B UE/LE major muscle groups 2. Impaired sitting/standing balance 3. Impaired activity tolerance 4. Limitation of joint range of motion in BUE/LE Impairments are contributing to the following functional limitations: 1. Dependent bed mobility skills 2. Increased dependence with transfers 3. Inability to safely ambulate without assistive device and physical assistance 4. Increase completion time for mobility ADL performance 5. Increased fall risk 6. Inability to negotiate steps alone safely Patient is assessed as a 38095 high complexity based on the following: History: 34-year-old female with impairment level findings, functional limitations, and past medical history as indicated above Examination: Demonstrable impairment in strength, balance, and mobility level with underlying impairments and functional limitations as documented above Presentation: Evolving Decision Makin high complexity Goals: After 1 more treatment session 1. Patient will be positioned safely and comfortably on wheelchair with reclining back and elevating leg rests prior to transport from hospital back to retirement facility this afternoon. Plan of Care/Treatment Plan: 1-2x/day for 1 day. Plan of care has been reviewed with the [employer]INTAINER providing the service under Physical Therapy direction. Initiate Physical Therapy intervention for strengthening, bed mobility, transfers, gait, stairs, balance training, use of assistive device. DISCHARGE RECOMMENDATIONS: Katherine will highly benefit from a motorized wheelchair in order to maximize indepedence with facility mobility, prevent skin breakdown, and improve quality of life. Patient is expected to return to retirement facility placement for continued skilled physical therapy services in order to progress mobility level, strength, and balance in preparation for a safe discharge to home. TREATMENT CODE/TIME: [id number] x 20 minutes beginning at 9:20 AM (with total time spent with OT divided in half). Thank you for the opportunity to participate in the care of this patient. Myrna Kendrick PT, DPT, CLT [facility] [place], [place]
--- NOTE | 2019-12-13 09:54 | OT.INIE ---
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 She was recently living at [facility] when she had a fever for multiple days in a row. She was jesus to the ED with chief c/o fever and sore throat with a clinical impression of sepsis and Influenze B. She was admitted into the ICU for a dx of dehydration, failure to thrive, hypotension, sepsis, Influenza B, servere muscle deconditioning, generalized weakness, GERD, seizure disorder and Asthma Past Medical History: Medical History (Updated 12/12/19 @ 07:51 by Sissy Zayas MD) Amenorrhea, unspecified (Acute) Asthma (Chronic) Bedbound (Chronic) since June 2019 not OOB independently Benign schwannoma (Resolved ~07/2018) Cancer of spinal column (Acute) MPN ST s/p chemo/craniosacral radiation Depression (Chronic) Disability due to neurological disorder (Chronic) Discharge planning issues (Inactive) Facial cellulitis (Resolved) GERD (gastroesophageal reflux disease) (Chronic) 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 Hypothyroidism (Chronic) Impaired mobility and ADLs (Chronic) Meningioma, recurrent of brain (Chronic ~2015) Neurofibromatosis II (Chronic) Non-healing wound (Chronic) right frontal scalp [facility] resident (Acute) Palliative care patient (Acute) Quadriparesis (muscle weakness) (Chronic ~2003) Right hand weakness (Acute) Seizure disorder (Chronic) Severe muscle deconditioning (Chronic) Vision loss, right eye (Chronic) Surgical History S/P craniotomy (Chronic) Social History/Home Situation: Pt lived previously alone in an apartment in [place] ([facility]). Since her last admission to [facility] she was living at [facility] which she reports that she has been signficantly weaker since arriving. She notes that she requires (A) with feeding, dressing and bathing. She has a roommate who she has a good relationship with. She notes that she participates in PT/OT at the [facility] and reports that PT has stopped working with her over the past couple weeks. She has a daughter and family who live locally. She is . Most of her family resides in [place] but she states that she has a lot of support in the area. Equipment owned/DME: [employer], She resides at [facility] and all of her DME needs are met there. SUBJECTIVE: Pt was sitting in bed when OT arrived. She was agreeable to OT consult and is able to make slight eye contact with conversation. She is emotional when she speaks about her time at [facility]. She states that she was working with PT which has recently stopped and that the OT was unsure as to what to do with her. She states that she does not like the darlene lift as when she was transferring it hit her in the head at one point which is also emotional for her. She has c/o her core strength, and that she was told by a PT at [facility] that she was too weak to walk. OBJECTIVE: General Observation: Pleasant, able to answer questions. She is emotional when speaking about her time at the &. She has a BP cuff on her (L) UE, IV in (B) UE, Dos Santos in place. Mental Status: A&Ox3 Pain: no c/o pain ROM: RUE Shoulder flexion actively to 10* and passively WNL, elbow WNL, hand/digits unable to fully extend digits which are in a contracted placement at IP joints of all digits, decreased thenar eminence d/t muscle wasting, no pain with passive mobilization hand sits in claw like formation d/t contractures. L UE Shoulder flexion actively to 30*, passively WNL, elbow WNL passively no ROM actively, hand/digits WNL no AROM STRENGTH: RUE Shoulder flexion modified 2/5, perl software engineer is weak LUE Shoulder flexion modified 3-/5, perl software engineer is weak but slightly stronger than her (R) UE Pt was (R) hand dominant prior to 2002 and now uses her (L) hand as her more dominant hand. FUNCTIONAL MOBILITY/ADLS: Transfers with Darlene lift due to deconditioning and muscle weakness Pt functionally has minimal to no ROM of her (B) UE. She was being fed her pills crushed with max (A) by RN. She is unable to hold a cup in her (L) hand which is significantly declined than when this OT saw pt about 1 year ago. She requires (A) with bathing, dressing and grooming due to her lack of AROM. She requires vc and mod-max (A) for functional use of her (B) UE. She sits with a support to her core as she is weak. Pt is not able to demonstrate her bathing routine although RN reports that she was lightly bathed with night nurse this morning. BALANCE: Static sitting Good with support Dynamic Sitting Fair-Good SPECIAL TESTS: Daily Activity Limitations Standardized Measure [facility] AM -PAC ?6 clicks? Daily Activity Inpatient Short Form: Raw score: 6 INFORMED CONSENT/EDUCATION: Pt instructed in purpose of OT Consult and plan of care. ASSESSMENT: Patient is a 34-year-old female referred to occupational therapy services with diagnosis of dehydration, failure to thrive, hypotension, sepsis, Influenza B, servere muscle deconditioning, generalized weakness, GERD, seizure disorder and Asthma. Patient presents with clinical signs and symptoms consistent with dx, as demonstrated by the following impairment level findings/functional limitations: Decreased (B) UE ROM/strength, decreased gross and fine motor control of (B) UE, decreased functional grasp (R) UE, unable to perform functional mobility required for ADL/IADL performance, decreased AROM of (B) UE, contracted (R) hand digits, weakness in (B) UE, decreased bed mobility, decreased functional activity tolerance, decreased ability to perform her ADLs without (A). Over the past year pt is demonstrating a significant decline in her overall functional (I), she is reliant on max (A). OT feels that pt would benefit from skilled Occupational Therapy services for increase in her (B) UE use with her functional activities to improve her overall quality of life. AMPA score 6 Patient is assessed as a High [id number] complexity based on the following: History: See Above Examination: See Above Presentation: Evolving Decision Making: [facility] 6 GOALS N/A as per pts chart she is being discharged to SNF today. PLAN OF CARE/TREATMENT PLAN: Discharge from skilled OT services. DISCHARGE RECOMMENDATIONS OT recommends that pt return to SNF or home with 24 hour care when medically cleared per MD. TREATMENT TIME/MINUTES/CODES 86625, 25 minutes (09:00) Mary Ellen Garland, OTR/L [facility] [place]
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
[2019-12-13] MEDS: Ibuprofen 600 MG TAB PO (12:26)
[2019-12-13] MEDS: Normal Saline 1,000 ML 50 ML IV (12:29)
[2019-12-13 12:30] VITALS: TEMP 36.7
[2019-12-13 13:11] VITALS: BP 131/82; PULSE 83
--- NOTE | 2019-12-13 15:16 | PDOC.CMDIS ---
- If Service Date Differs Date of service: 12/13/19 Time of Service: 15:16 LACE Index Scoring Tool - Questions: Length of Stay (in days): 3 Acuity (Admit via E.D.?): Yes Comorbidities: Any Tumor E.D. Visits: 9 - Answers: Total Score: 12 Risk of Readmission: High Risk Care Management Discharge Reason for Hospitalization: Influenza B Discharge Plan: Katherine will return to [facility] today, now that she is medically stable. She will transport via ambulance, coordinated by CM. She will follow up with her discharge plan of care. Patient/Family Education Needs: Review discharge instructions regarding activity levels and medications, discussion of self care needs and goals of care. Services Needed at Discharge: [facility] ( [facility]), Transportation ([facility])
--- NOTE | 2019-12-14 10:53 | PT.INDS ---
Date of service: 12/14/19 Time of Service: 10:53 PT Notes Visit Reasons: INFLUENZA B Inpatient Physical Therapy Discharge Summary Dates: 12/14/2019 Dates of Service: 12/13/2019 only This is a clinical summary of care provided on the duration of dates listed above. No charge was made in the completion of this documentation. Referring Doctor: Sissy Zayas MD PT Orders: PT CONSULT: Limited ability Precautions: Fall. Standard. Chronic quadriparesis. Seizure-prone. Patient Profile/Admitting Diagnosis: Katherine is a 34-year-old female with past medical history significant for bilateral acoustic schwannomas, neurofibromatosis type II, malignant peripheral nerve sheath tumor, paresis, seizure disorder, and meningioma status post craniospinal radiation and chemotherapy with multiple meningiomas and meningioma resection who presented to the ED on 12/11/2019 with a chief complaint of sore throat, nausea, and feeling cold. Patient is diagnosed with influenza B, dehydration, and hypotension with referral made to therapy for limited ability. PMHX: Medical History (Updated 12/12/19 @ 07:51 by Sissy Zayas MD) Amenorrhea, unspecified (Acute) Asthma (Chronic) Bedbound (Chronic) since June 2019 not OOB independently Benign schwannoma (Resolved ~07/2018) Cancer of spinal column (Acute) MPNST s/p chemo/craniosacral radiation Depression (Chronic) Disability due to neurological disorder (Chronic) Discharge planning issues (Inactive) Facial cellulitis (Resolved) GERD (gastroesophageal reflux disease) (Chronic) 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 Hypothyroidism (Chronic) Impaired mobility and ADLs (Chronic) Meningioma, recurrent of brain (Chronic ~2015) Neurofibromatosis II (Chronic) Non-healing wound (Chronic) right frontal scalp longterm resident (Acute) Palliative care patient (Acute) Quadriparesis (muscle weakness) (Chronic ~2003) Right hand weakness (Acute) Seizure disorder (Chronic) Severe muscle deconditioning (Chronic) Vision loss, right eye (Chronic) Surgical History S/P craniotomy (Chronic) Social History/Home Situation: Has been a long-term care resident of [facility] since June [facility]. Equipment Owned/DME: Wheelchair Subjective: NT. See most recent PT notes. Objective: General Observation: NT. See most recent PT notes. Mental Status: NT. See most recent PT notes. Pain: NT. See most recent PT notes. ROM: Right Upper Extremity: Evaluation done concurrently with OT. Please see OT notes. Left Upper Extremity: Evaluation done concurrently with OT. Please see OT notes. Right Lower Extremity: Able to initiate the first 25% of movement for hip flexion and knee flexion. Hip abduction allows up to 10 degrees. Ankle dorsiflexion allows about 10 degrees. Ankle plantarflexion allows about 10 degrees. Left Lower Extremity: No active movement seen. Strength: Right Upper Extremity: Evaluation done concurrently with OT. Please see OT notes. Left Upper Extremity: Evaluation done concurrently with OT. Please see OT notes. Right Lower Extremity: Hip flexors 3-/5. Hip abductors 3-/5. Knee flexors 3-/5. Knee extensors 2-/5. Ankle dorsiflexors 3-/5. Ankle plantarflexors 3-/5. Left Lower Extremity: 1/5 for all hip and knee major muscle groups. 0/5 ankle and foot. Sensation: Intact as to pain and pressure on bilateral lower extremities. Bed Mobility/Transfers: Rolling requires assist of 2. Needs use of mechanical lift for all transfers. Gait: N/A. Non-ambulatory. Balance: Static Sitting: Poor Dynamic Sitting: Poor Static Standing: Unable Dynamic Standing: Unable Assessment: Harmony demonstrates independence with all mobility ADL performance due to chronic quadriparesis, need for mechanical lift for all transfers, and requires total assist with wheelchair mobility. With residual strength seen in the right UE, she may benefit from the use of a motorized wheelchair for independent facility navigation. Patient presents with clinical signs and symptoms consistent with current/admitting diagnoses that have resulted to mobility limitations, gait instability, generalized weakness, and impairment of motor control as demonstrated by the following impairment level findings: 1. Chronically decreased strength to B UE/LE major muscle groups 2. Impaired sitting/standing balance 3. Impaired activity tolerance 4. Limitation of joint range of motion in BUE/LE Impairments are contributing to the following functional limitations: 1. Dependent bed mobility skills 2. Increased dependence with transfers 3. Increased fall risk 4. Increased risk for skin breakdown Goals: After 1 more treatment session 1. Patient will be positioned safely and comfortably on wheelchair with reclining back and elevating leg rests prior to transport from hospital back to [facility]dc facility this afternoon. NOT MET. Patient transported to SNF via [facility] ambulance. DISCHARGE RECOMMENDATIONS: Katherine will highly benefit from a motorized wheelchair in order to maximize indepedence with facility mobility, prevent skin breakdown, and improve quality of life. Patient is expected to return to fdc facility placement for continued skilled physical therapy services in order to progress mobility level, strength, and balance in preparation for a safe discharge to home. TREATMENT CODE/TIME: NC. Thank you for the opportunity to participate in the care of this patient. Myrna Kendrick PT, DPT, CLT [facility] [place], [place]
== END 2019-12-13 15:15 | disposition skilled nursing facility (03) ==
LOC: ER 12-12 00:01 → ICU 12-12 00:33
PROVIDERS: Admitting Provider Internal Medicine; Emergency Provider Student in an Organized Health Care Education/Training Program; PCP Family Medicine; Visit Provider Internal Medicine
DX: J10.1 Influenza due to other identified influenza virus with other respiratory manifestations (principal); Q85.02 Neurofibromatosis, type 2; G82.50 Quadriplegia, unspecified; G40.909 Epilepsy, unspecified, not intractable, without status epilepticus; I95.9 Hypotension, unspecified; Z79.899 Other long term (current) drug therapy; Z99.3 Dependence on wheelchair; E86.0 Dehydration; J45.909 Unspecified asthma, uncomplicated; R53.1 Weakness; R62.7 Adult failure to thrive
CPT/HCPCS: 36415; 80048; 80053; 84145; 87040; 87081; 87449; 96365; 96367; 96368; 96375; 97163; 97167; 97535; 99220; 99239; 99254; 99285; U0003; 71045; 80156; 81003; 81015; 83605; 83735; 85025; 87086; 99217; G0378; J0131; J0456; J1200; J2405; J2543; J2930

== ENCOUNTER 2019-12-20 15:56 | Outpatient (REF) | payer MEDICARE, MEDICAID, SELFPAY ==
[2019-12-21 18:28] LABS: COVID-19 RT-PCR Result Not Detected ((See Note))
== END 2019-12-20 16:16 ==
LOC: LBN 15:56
PROVIDERS: PCP Family Medicine; Visit Provider Nurse Practitioner Adult Health
DX: Z11.59 Encounter for screening for other viral diseases (principal)
CPT/HCPCS: U0003

== ENCOUNTER 2020-01-15 04:54 | Emergency (ER) | payer MEDICARE, MEDICAID, SELFPAY ==
[2020-01-15 04:56] VITALS: BP 91/65; PULSE 94; RESP 20; TEMP 36.8; O2SAT 94
[2020-01-15 05:00] VITALS: BP 93/64; PULSE 95; RESP 16; O2SAT 93
--- NOTE | 2020-01-15 05:01 | DI.CT_ITS ---
EXAM: CT NECK CHEST WO CLINICAL HISTORY: ?foreign body vs aspiration. TECHNIQUE: Imaging Protocol: Axial computed tomography images with coronal and sagittal reformatted images were created and reviewed CONTRAST MATERIAL: None. COMPARISON: CT CT CERVICAL SPINE WO from 06/30/[address] ABDOMEN PELVIS W from 10/15/2019 CR,XR XR PORTABLE CHEST AP from 12/11/2019 FINDINGS: Neck CT: The exam is somewhat limited by patient motion. There is no evidence of foreign body. Ther e is no evidence of abscess or abnormal gas collection. There are laminectomy defects noted. Multipl e abnormal bony lucencies are seen suspicious for metastatic disease. The right sphenoid sinus is op acified. No fractures or dislocations are seen. Scoliosis is present. Soft tissue density lesions ar e seen in the paraspinal levels with neural foraminal widening, consistent with the patient's history of neurofibromatosis. Chest CT: A rounded peripherally calcified lesion is again noted near the right lung apex adjacent to the spine, consistent with a neurofibroma. No foreign body is seen in the trachea or esophagus. Th e right diaphragm is again noted to be quite elevated. Exam is somewhat limited due to respiratory m otion. There is right lower lobe atelectasis. Minimal increased densities are seen in the right upp er lobe. There is a trace left pleural effusion. No pericardial effusion is seen. The liver, splee n, gallbladder, adrenals and upper poles of the kidneys are unremarkable. The aorta is normal in keshav meter. Heart size is normal. There is mild scoliosis. There is muscular atrophy, greatest of the r ight shoulder. IMPRESSION: Limited exam due to patient motion. No evidence of foreign body in the cervical spine or chest. Mild right basilar atelectasis. Minimally increased right upper lobe densities without consolidation . RADIATION DOSE DELIVERED: 926.85mGy.cm Total DLP DATA REPOSITORY: All CT scans at this facility are submitted to the National Radiology Data Registry (NRDR) Dose Index Registry (DIR) with the [employer] ([employer]). RADIATION OPTIMIZATION: All CT scans at this facility use at least one of these dose optimization te chniques: automated exposure control; mA and/or kV adjustment per patient size (includes targeted exa ms where dose is matched to clinical indication); or iterative reconstruction.
[2020-01-15 05:03] VITALS: RESP 20
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
[2020-01-15 05:30] VITALS: BP 87/63; PULSE 91; RESP 16; O2SAT 95
--- NOTE | 2020-01-15 05:33 | NUR.NOTE ---
Nursing Note: Returned from CT, warm blanket provided and lights dimmed, no further needs.
[2020-01-15 06:00] VITALS: BP 99/72; PULSE 92; RESP 16; O2SAT 95
[2020-01-15 06:18] VITALS: BP 99/72; PULSE 95; RESP 16; O2SAT 96
--- NOTE | 2020-01-17 16:03 | DI.VRAD_ITS ---
PROCEDURE INFORMATION: Exam: CT Neck Without Contrast Exam date and time: 01/15/2020 5:24 AM Age: 34 years old Clinical indication: Prior surgery; Surgery date: 6+ months; Surgery type: Crainiotomy; Patient HX: R/O fb vs aspiration; Additional info: HX of sarcoma excision c6-7, meningioma recurrent of brain, cancer of spinal column TECHNIQUE: Imaging protocol: Computed tomography images of the neck without contrast. Radiation optimization: All CT scans at this facility use at least one of these dose optimization techniques: automated exposure control; mA and/or kV adjustment per patient size (includes targeted exams where dose is matched to clinical indication); or iterative reconstruction. COMPARISON: CR XR PORTABLE CHEST AP 12/11/2019 10:17 PM FINDINGS: Nasopharynx: Unremarkable. Oropharynx: Unremarkable. No significant tonsillar enlargement. Hypopharynx: Unremarkable. Larynx: Unremarkable. Normal epiglottis. Retropharyngeal space: Unremarkable. Submandibular/Parotid glands: Normal. Glands are normal in size. Thyroid: Normal. No enlarged or calcified nodules. Lymph nodes: Unremarkable. No lymphadenopathy. Trachea: Visualized trachea is unremarkable. Lungs: Unremarkable as visualized. Bones/joints: Unremarkable. No acute fracture. Soft tissues: Unremarkable. No significant soft tissue swelling. Opacified right mastoid cavity partially visualized. Chronic right sphenoid sinusitis IMPRESSION: No acute findings in the soft tissues of the neck. No radiopaque foreign body Opacified right mastoid cavity partially visualized. Chronic right sphenoid sinusitis. PROCEDURE INFORMATION: Exam: CT Chest Without Contrast Exam date and time: 01/15/2020 5:24 AM Age: 34 years old Clinical indication: Prior surgery; Surgery date: 6+ months; Surgery type: Crainiotomy; Patient HX: R/O fb vs aspiration; Additional info: HX of sarcoma excision c6-7, meningioma recurrent of brain, cancer of spinal column TECHNIQUE: Imaging protocol: Computed tomography of the chest without contrast. Radiation optimization: All CT scans at this facility use at least one of these dose optimization techniques: automated exposure control; mA and/or kV adjustment per patient size (includes targeted exams where dose is matched to clinical indication); or iterative reconstruction. COMPARISON: CR XR PORTABLE CHEST AP 12/11/2019 10:17 PM FINDINGS: 2.7 cm partially calcified mass at the right lung apex. Minimal apical scarring. Vague ill-defined ground-glass opacities in the right lower lobe. Faint subpleural nodules in the left upper lobe measuring up to 3 mm. Mild basilar subsegmental atelectasis greater on the right. Question trace pleural fluid. No pneumothorax. The heart is normal in size without pericardial effusion. No adenopathy. No aortic aneurysm. No concerning osseous abnormality IMPRESSION: Right apical partially calcified mass measuring up to 2.7 cm in this patient with history of sarcoma. Comparison with prior images would be helpful Mild subsegmental atelectasis at the bases greater on the right and question trace pleural fluid. Dictated and Authenticated by: Tan Chua MD. Ordering:SAEED Lopez MD
== END 2020-01-15 06:18 | disposition skilled nursing facility (03) ==
PROVIDERS: Emergency Provider Emergency Medicine; PCP Family Medicine
DX: T17.920A Food in respiratory tract, part unspecified causing asphyxiation, initial encounter (principal); J98.11 Atelectasis; R91.8 Other nonspecific abnormal finding of lung field; Q85.02 Neurofibromatosis, type 2; Z74.01 Bed confinement status
CPT/HCPCS: 99284; G0297; 70490; 99281

== ENCOUNTER 2020-01-17 12:25 | Outpatient (REF) | payer MEDICARE, MEDICAID, SELFPAY ==
[2020-01-17 13:49] LABS: TSH 0.61 uIU/mL (0.36-3.74)
[2020-01-17 14:41] LABS: Abs Immature Grans 0.16 10^3/uL (0.0-0.06); Absolute Lymphocyte Count 1.97 10^3/uL (1.2-3.4); Absolute Monocyte Count 1.61 10^3/uL (0.1-0.8); Basophils % 0.2; Eosinophils % 0.1; HGB 14.1 g/dL (11.2-15.7); Immature Grans % 0.7; Lymphocytes % 8.2; MCH 29.9 pg (27.0-33.0); MCHC 33.6 % (32.0-36.0); Monocytes % 6.7; Neutrophils % 84.1; Nucleated RBC 0 %; RBC 4.72 10^6/uL (3.93-5.22); RDW 12.5 % (11.7-14.6); RDW-SD 40.8 fL; WBC 24.04 10^3/uL (4.4-10.8)
[2020-01-17 15:02] LABS: Absolute Basophil Count 0.05 10^3/uL (0.0-0.2); Absolute Eosinophil Count 0.02 10^3/uL (0.0-0.7); Absolute Neutrophil Count 20.22 10^3/uL (1.2-6.7)
[2020-01-17 15:14] LABS: Anion Gap 14.1 mmol/L (3-11); BUN 16 mg/dL (7-18); CO2 25.9 mmol/L (21.0-32.0); CREATININE 0.43 mg/dL (0.55-1.02); Calcium 9.6 mg/dL (8.5-10.1); Chloride 106 mmol/L (98-107); Glucose 113 mg/dL (74-106); Potassium 3.9 mmol/L (3.5-5.1); Sodium 146 mmol/L (136-145)
[2020-01-17 15:21] LABS: Diff Comment Diff Reviewed; Platelet Count 228 10^3/uL (130-400); RBC Morphology Normal
== END 2020-01-17 12:45 ==
LOC: LBN 12:25
PROVIDERS: PCP Family Medicine; Visit Provider Nurse Practitioner Adult Health
DX: E03.9 Hypothyroidism, unspecified (principal); M62.81 Muscle weakness (generalized); G40.89 Other seizures; Z51.81 Encounter for therapeutic drug level monitoring; Z79.899 Other long term (current) drug therapy
CPT/HCPCS: 80048; 80177; 84443; 85025

== ENCOUNTER 2020-01-17 13:56 | Inpatient (IN) | payer MEDICARE, MEDICAID, SELFPAY ==
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
[2020-01-17 16:24] VITALS: BP 105/79; PULSE 131; RESP 18; TEMP 38.2; O2SAT 92
--- NOTE | 2020-01-17 17:17 | CMPROGNOTE_ITS ---
- If Service Date Differs Date of service: 01/17/20 Time of Service: 17:17 Care Management Progress Note S/O: CM contacted Katherine's mother and notified her of Katherine's . CM attempted to contact Mother upon admission however the number in the electronic chart was incorrect. CM found the correct number on Katherine's appointment of healthcare agent form which I was able to obtain from [facility] [place] [facility] appointment her mother Margie as her healthcare agent. Margie states all she wanted for Katherine was to be made comfortable during her hospital admission and requested from comfort measures only. Margie will contact the hospital once she has returned home, she was tearful and distraught when CM spoke with her and needed a moment before taking any further. CM provided contact number and will await for return call. P:Disposition to be determined CM is awaiting a return call from Katherine's mom for instruction.
--- NOTE | 2020-01-17 18:11 | NUR.NOTE ---
Nursing Note: Unable to do part 1 and 2 of admission due to patient confusion and garbled speech. Pt had ring on left ring finger present upon admission. Had bag of belongings in room (nothing was removed from bag) - bag was sent down with patient and nurse custodian supervisor to jessica. Ring on left ring finger remained in place.
[2020-01-18 01:43] LABS: COVID-19 RT-PCR UVMMC Result Negative (Negative)
--- NOTE | 2020-01-18 13:44 | W.PM.DDS ---
Date of service: 01/18/20 Time of Service: 13:44 Discharge Sum: Prov Provider Consults: 01/17/20 13:53 Pharmacy Assistant Consult [CONS] Routine Consultation Status:: Follow-up needed Clarification:: Manage/follow per spec. Reason for consult:: andrei appears to be actively dying family needing support 01/17/20 15:03 Palliative Care Consult [CONS] Routine Consultation Status:: Contact made by MD Clarification:: Manage/follow per spec. Reason for consult:: end of life care, direction Discharge Sum: Diag Contributing Factors (1) Cannot walk: (2) Recurrent aspiration pneumonia: (3) Comfort measures only status: (4) Unintentional weight loss: (5) History of brain tumor: (6) Bedbound: (7) Generalized weakness: (8) History of craniotomy: (9) Seizure disorder: (10) Neurofibromatosis II: (11) Delirium: (12) Palliative care status: (13) Aspiration into airway: Discharge Sum: Summary Date and Time Admission Date: 08/03/1909/15/20 13:56
--- NOTE | 2020-01-18 15:57 | NUR.NOTE ---
Nursing Note: 1306: spoke with Ne in pharmacy regarding amount of morphine returned to pharmacy drop box on this pt. when RN was doing documentation 01/17/20 following the of the pt, the RN recorded the amount given on pharmacy sheet and not amount returned in cassette. Explained to Ne that there is a line through the original number of 3.25 and a corrected amount of 97.55 has been written in by Jonelle Bruno RN. documentation in [employer] reflects this amount as well. original cassette was 100 mL, 1.8 to prime with 0.65 mg infused from 5mg/mL cassette. Yaz Christopher, RN in CC position on 01/16 assisted Damion with documentation. Ne thanked this scribe for making the correction and explaining what had happened.
== END 2020-01-17 17:02 | disposition expired | DRG 179 ==
PROVIDERS: Family Medicine; Admitting Provider Internal Medicine; PCP Family Medicine; Visit Provider Internal Medicine
DX: J69.0 Pneumonitis due to inhalation of food and vomit (principal); R26.2 Difficulty in walking, not elsewhere classified; Z51.5 Encounter for palliative care; Z74.01 Bed confinement status; G40.909 Epilepsy, unspecified, not intractable, without status epilepticus; Z85.841 Personal history of malignant neoplasm of brain; Q85.01 Neurofibromatosis, type 1; R41.0 Disorientation, unspecified
CPT/HCPCS: 99238; 99255; U0003